=== PATIENT | female | born 1940 | race Caucasian/White ===

== ENCOUNTER 2018-07-30 17:05 | Inpatient (IN) ==
--- NOTE | 2018-07-30 22:40 | XR ---
EXAM DATE: 07/30/2018 10:36 PM EST AGE/SEX: 77 years / Female INDICATIONS: Chest pain. Short of breath. Confusion. CLINICAL DATA: This is the patient's initial encounter. Patient reports that signs and symptoms have been present for 1 day and indicates a pain score of Nonresponsive. MEDICAL/SURGICAL HISTORY: Non-responsive. Non-responsive. COMPARISON: No prior exams available for comparison. FINDINGS: The heart is moderately enlarged. The central bronchopulmonary markings are fairly well delineated. O blique linear density in the right upper lung may represent scarring. No focal areas of consolidation . No evidence of pneumothorax. Both hemidiaphragms well delineated. The right costophrenic angle is n ot included in the [id number]-lu-nquy. CONCLUSION: Probable right apical scarring or atelectasis. Moderate cardiomegaly. Electronically signed by: Jim Jewell MD 07/30/2018 10:38 PM EST
[2018-07-30 22:41] LABS: Baso # (Auto) 0.1 th/mm3 (0.0-0.2); Baso % (Auto) 0.6 % (0.0-2.0); Eos # (Auto) 0.1 th/mm3 (0.0-0.4); Eos % (Auto) 0.8 % (0.0-4.0); Hematocrit 48.9 % (35.0-46.0); Hemoglobin 16.3 gm/dL (11.6-15.3); Lymph # (Auto) 1.6 th/mm3 (1.0-4.8); Lymph % (Auto) 18.4 % (9.0-44.0); Mean Corpuscular HGB Conc 33.4 % (32.0-36.0); Mean Corpuscular Hemoglobin 32.7 pg (27.0-34.0); Mean Corpuscular Volume 97.9 fL (80.0-100.0); Mean Platelet Volume 8.9 fL (7.0-11.0); Mono # (Auto) 0.7 th/mm3 (0.0-0.9); Mono % (Auto) 8.2 % (0.0-8.0); Neut # (Auto) 6.1 th/mm3 (1.8-7.7); Platelet Count 110 th/mm3 (150-450); Red Blood Count 4.99 mil/mm3 (4.00-5.30); Red Cell Distribution Width 16.7 % (11.6-17.2); White Blood Count 8.4 th/mm3 (4.0-11.0)
--- NOTE | 2018-07-30 22:41 | ED ---
HPI General Chief complaint: Weakness Stated complaint: sob Time Seen by Provider: 07/30/18 21:49 History of Present Illness HPI narrative: Patient is a 77-year-old female presents emergency department with a next-door neighbor for evaluation of generalized weakness and probable syncopal episode that happened today. Neighbors noticed that she had not been as active as much had been on the street is much recently. She apparently came out to get the mail and had a collapse yesterday. She also endorses new shortness of breath and worsening leg swelling. Patient has a history of a cardiac arrest as well as STEMI and a stroke in the past. She states that she does not like going to doctors and treats herself naturally. She is quite pleasant and denies any chest pain abdominal pain nausea or vomiting denies any fevers cough or congestion. States she just feeling rundown. Related Data Home Medications Medication Instructions Recorded Confirmed aspirin 325 mg PO DAILY 07/31/18 07/31/18 cholecalciferol (vitamin D3) 2,000 unit PO DAILY 07/31/18 07/31/18 [Vitamin D3] coenzyme Q10 [CoQ-10] See Label Instructions .ROUTE 07/31/18 07/31/18 .COMPLEX Allergies Allergy/AdvReac Type Severity Reaction Status Date / Time Sulfa (Sulfonamide Allergy Severe unk Verified 07/31/18 04:35 Antibiotics) Review of Systems ROS: all other systems reviewed are negative [facility] Social History Social History Substance History: No History of Abuse Second Hand Smoke Exposure: No Smoking Status: Former smoker How Often Do You Have a Drink Containing Alcohol: Monthly or less Hx Recent Travel: No Recent Travel in [facility] within the Last 8 Weeks: No Recent Out of Country Travel within the Last 8 Weeks: No Immunization History Tetanus Immunization: Unsure Exam Narrative Exam Narrative: GENERAL: Developed overweight female pleasant in no obvious distress. SKIN: Focused skin assessment warm/dry. HEAD: Atraumatic. Normocephalic. EYES: Pupils equal and round. No scleral icterus. No injection or drainage. ENT: No nasal bleeding or discharge. Mucous membranes pink and moist. NECK: Trachea midline. No JVD. CARDIOVASCULAR: Regular rhythm with tachycardia. No murmur appreciated. RESPIRATORY: No wheezes rales or rhonchi heard. Patient does appear shortness of breath when she is sitting up in a stretcher and appears even more short of breath when she sits forward. No accessory muscle use. Clear to auscultation. Breath sounds equal bilaterally. GASTROINTESTINAL: Abdomen soft, non-tender, nondistended. Hepatic and splenic margins not palpable. MUSCULOSKELETAL: No obvious deformities. No clubbing. No cyanosis. Significant pitting edema bilateral lower extremities from the knees down. NEUROLOGICAL: Awake and alert. No obvious cranial nerve deficits. Motor grossly within normal limits. Normal speech. PSYCHIATRIC: Appropriate mood and affect; insight and judgment normal. Course Initial Documented Vital Signs Temperature 97.9 F 07/30/18 17:30 Pulse Rate 117 H 07/30/18 17:30 Respiratory Rate 22 07/30/18 17:30 Blood Pressure 132/85 07/30/18 17:30 Pulse Oximetry 93 L 07/30/18 17:30 Last Documented Vital Signs Temperature 97.6 F 08/05/18 12:00 Pulse Rate 75 08/05/18 12:00 Respiratory Rate 16 08/05/18 12:00 Blood Pressure 112/61 08/05/18 12:00 Pulse Oximetry 92 L 08/05/18 12:00 Sign Out Sign Out Data: Patient Sign Out occurred on 07/30/18 at 23:32. Patient's care was discussed, and care was transferred from Reggie Carmona MD to Ezekiel Vasquez MD. Sign Out Comment: Lasix 80mg ordered. Probable CHF and syncope. Probable admit. Awaiting CT PE protocol. Last updated by Reggie Carmona MD at 07/30/18 23:25 Post-Handoff Eval: Patient seen initially by Dr. Carmona, please see his notes for further details. Patient has CHF and has been given Lasix. Her CAT scan shows pulmonary embolism and a heparin protocol was initiated. Case is discussed with Dr. Oswald for admission. Medical Decision Making MDM Narrative Medical decision making narrative: Patient room to the emerge department, leading diagnostic concerns would be for congestive heart failure acute on chronic. Patient does have a history of cardiac arrest, denies any chest pain. She is also tachycardic has significant leg swelling and is fairly sedentary. I think a CT PE protocol should be performed as well. The patient's BNP is elevated, troponin negative, Lasix will be given. Medical Screen Exam Complete: Yes Emergency Medical Condition: Yes Lab Data Result diagrams: 08/05/18 05:12 08/05/18 05:12 Lab Results 07/30/18 07/30/18 07/30/18 Range/Units 22:30 22:30 22:30 WBC 8.4 (4.0-11.0) th/mm3 RBC 4.99 (4.00-5.30) mil/mm3 Hgb 16.3 H (11.6-15.3) gm/dL Hct 48.9 H (35.0-46.0) % MCV 97.9 (80.0-100.0) fL MCH 32.7 (27.0-34.0) pg MCHC 33.4 (32.0-36.0) % RDW 16.7 (11.6-17.2) % Plt Count 110 L (150-450) th/mm3 MPV 8.9 (7.0-11.0) fL Neut % (Auto) 72.0 H (16.0-70.0) % Lymph % (Auto) 18.4 (9.0-44.0) % Imperial % (Auto) 8.2 H (0.0-8.0) % Eos % (Auto) 0.8 (0.0-4.0) % Baso % (Auto) 0.6 (0.0-2.0) % Neut # (Auto) 6.1 (1.8-7.7) th/mm3 Lymph # (Auto) 1.6 (1.0-4.8) th/mm3 Imperial # (Auto) 0.7 (0.0-0.9) th/mm3 Eos # (Auto) 0.1 (0.0-0.4) th/mm3 Baso # (Auto) 0.1 (0.0-0.2) th/mm3 WBC Differential . Differential Comment Auto diff final PT 14.8 H (9.8-11.6) sec INR 1.5 Ratio APTT 28.9 (23.4-31.7) sec Sodium 137 (136-145) meq/L Potassium 5.0 (3.5-5.1) meq/L Chloride 101 (98-107) meq/L Carbon Dioxide 26.9 (21.0-32.0) meq/L Anion Gap 9 (5-15) meq/L BUN 30 H (7-18) mg/dL Creatinine 1.27 H (0.50-1.00) mg/dL Estimated GFR 41 L (>89) mL/min POC Glucose (68-110) mg/dl Random Glucose 121 H (74-106) mg/dL Hemoglobin A1c (4.3-6.0) % Calcium 8.6 (8.5-10.1) mg/dL Magnesium (1.5-2.5) mg/dL Total Bilirubin 1.1 H (0.2-1.0) mg/dL AST 51 H (15-37) U/L ALT 61 H (10-53) U/L Alkaline Phosphatase 158 H (45-117) U/L Total Creatine Kinase (26-192) U/L Troponin I 0.05 (0.02-0.05) ng/mL B-Natriuretic Peptide (0-100) pg/mL Total Protein 6.5 (6.4-8.2) g/dL Albumin 3.2 L (3.4-5.0) g/dL Triglycerides (42-150) mg/dL Cholesterol (120-200) mg/dL LDL Cholesterol, Calc (0-99) mg/dL HDL Cholesterol (40.0-60.0) mg/dL Cholesterol/HDL Ratio Ratio Vitamin B12 (193-986) pg/mL Folate (3.1-17.5) ng/mL Urine Color (Yellw/Straw) Urine Clarity (Clear) Urine pH (5.0-8.5) Ur Specific Hemphill (1.002-1.035) Urine Protein (Neg-Trace) mg/dL Urine Glucose (UA) (Negative) mg/dL Urine Ketones (Negative) mg/dL Urine Occult Blood (Negative) Urine Nitrate (Negative) Urine Bilirubin (Negative) Urine Urobilinogen (Less than 2) mg/dL Ur Leukocyte Esterase (Negative) Urine RBC (0-3) /hpf Urine WBC (0-5) /hpf Amorphous Sediment (None) /hpf Hyaline Casts (0-3) /lpf Granular Casts (None) /lpf Waxy Casts (None) /lpf Urine Mucus (Occasional) /lpf Micro UA Comment Ur Microscopic Review Urine Culture Comments 07/30/18 07/31/18 07/31/18 Range/Units 22:30 00:30 01:00 WBC (4.0-11.0) th/mm3 RBC (4.00-5.30) mil/mm3 Hgb (11.6-15.3) gm/dL Hct (35.0-46.0) % MCV (80.0-100.0) fL MCH (27.0-34.0) pg MCHC (32.0-36.0) % RDW (11.6-17.2) % Plt Count (150-450) th/mm3 MPV (7.0-11.0) fL Neut % (Auto) (16.0-70.0) % Lymph % (Auto) (9.0-44.0) % Imperial % (Auto) (0.0-8.0) % Eos % (Auto) (0.0-4.0) % Baso % (Auto) (0.0-2.0) % Neut # (Auto) (1.8-7.7) th/mm3 Lymph # (Auto) (1.0-4.8) th/mm3 Imperial # (Auto) (0.0-0.9) th/mm3 Eos # (Auto) (0.0-0.4) th/mm3 Baso # (Auto) (0.0-0.2) th/mm3 WBC Differential Differential Comment PT 15.6 H (9.8-11.6) sec INR 1.5 Ratio APTT 29.9 (23.4-31.7) sec Sodium (136-145) meq/L Potassium (3.5-5.1) meq/L Chloride (98-107) meq/L Carbon Dioxide (21.0-32.0) meq/L Anion Gap (5-15) meq/L BUN (7-18) mg/dL Creatinine (0.50-1.00) mg/dL Estimated GFR (>89) mL/min POC Glucose (68-110) mg/dl Random Glucose (74-106) mg/dL Hemoglobin A1c (4.3-6.0) % Calcium (8.5-10.1) mg/dL Magnesium (1.5-2.5) mg/dL Total Bilirubin (0.2-1.0) mg/dL AST (15-37) U/L ALT (10-53) U/L Alkaline Phosphatase (45-117) U/L Total Creatine Kinase (26-192) U/L Troponin I (0.02-0.05) ng/mL B-Natriuretic Peptide 2019 H (0-100) pg/mL Total Protein (6.4-8.2) g/dL Albumin (3.4-5.0) g/dL Triglycerides (42-150) mg/dL Cholesterol (120-200) mg/dL LDL Cholesterol, Calc (0-99) mg/dL HDL Cholesterol (40.0-60.0) mg/dL Cholesterol/HDL Ratio Ratio Vitamin B12 (193-986) pg/mL Folate (3.1-17.5) ng/mL Urine Color Yellow (Yellw/Straw) Urine Clarity Hazy H (Clear) Urine pH 5.0 (5.0-8.5) Ur Specific Hemphill 1.015 (1.002-1.035) Urine Protein 30 H (Neg-Trace) mg/dL Urine Glucose (UA) Negative (Negative) mg/dL Urine Ketones Negative (Negative) mg/dL Urine Occult Blood Negative (Negative) Urine Nitrate Negative (Negative) Urine Bilirubin Negative (Negative) Urine Urobilinogen Less than 2 (Less than 2) mg/dL Ur Leukocyte Esterase Negative (Negative) Urine RBC 2 (0-3) /hpf Urine WBC 1 (0-5) /hpf Amorphous Sediment Rare H (None) /hpf Hyaline Casts 64 (0-3) /lpf Granular Casts 4 (None) /lpf Waxy Casts 3 (None) /lpf Urine Mucus Few H (Occasional) /lpf Micro UA Comment Culture not ind Ur Microscopic Review Not Reportable Urine Culture Comments Culture not ind 07/31/18 07/31/18 07/31/18 Range/Units 06:33 13:31 13:31 WBC (4.0-11.0) th/mm3 RBC (4.00-5.30) mil/mm3 Hgb (11.6-15.3) gm/dL Hct (35.0-46.0) % MCV (80.0-100.0) fL MCH (27.0-34.0) pg MCHC (32.0-36.0) % RDW (11.6-17.2) % Plt Count (150-450) th/mm3 MPV (7.0-11.0) fL Neut % (Auto) (16.0-70.0) % Lymph % (Auto) (9.0-44.0) % Imperial % (Auto) (0.0-8.0) % Eos % (Auto) (0.0-4.0) % Baso % (Auto) (0.0-2.0) % Neut # (Auto) (1.8-7.7) th/mm3 Lymph # (Auto) (1.0-4.8) th/mm3 Imperial # (Auto) (0.0-0.9) th/mm3 Eos # (Auto) (0.0-0.4) th/mm3 Baso # (Auto) (0.0-0.2) th/mm3 WBC Differential Differential Comment PT (9.8-11.6) sec INR Ratio APTT 277.5 H* (23.4-31.7) sec Sodium (136-145) meq/L Potassium (3.5-5.1) meq/L Chloride (98-107) meq/L Carbon Dioxide (21.0-32.0) meq/L Anion Gap (5-15) meq/L BUN (7-18) mg/dL Creatinine (0.50-1.00) mg/dL Estimated GFR (>89) mL/min POC Glucose (68-110) mg/dl Random Glucose (74-106) mg/dL Hemoglobin A1c (4.3-6.0) % Calcium (8.5-10.1) mg/dL Magnesium (1.5-2.5) mg/dL Total Bilirubin (0.2-1.0) mg/dL AST (15-37) U/L ALT (10-53) U/L Alkaline Phosphatase (45-117) U/L Total Creatine Kinase 63 66 (26-192) U/L Troponin I 0.04 0.04 (0.02-0.05) ng/mL B-Natriuretic Peptide (0-100) pg/mL Total Protein (6.4-8.2) g/dL Albumin (3.4-5.0) g/dL Triglycerides (42-150) mg/dL Cholesterol (120-200) mg/dL LDL Cholesterol, Calc (0-99) mg/dL HDL Cholesterol (40.0-60.0) mg/dL Cholesterol/HDL Ratio Ratio Vitamin B12 (193-986) pg/mL Folate (3.1-17.5) ng/mL Urine Color (Yellw/Straw) Urine Clarity (Clear) Urine pH (5.0-8.5) Ur Specific Hemphill (1.002-1.035) Urine Protein (Neg-Trace) mg/dL Urine Glucose (UA) (Negative) mg/dL Urine Ketones (Negative) mg/dL Urine Occult Blood (Negative) Urine Nitrate (Negative) Urine Bilirubin (Negative) Urine Urobilinogen (Less than 2) mg/dL Ur Leukocyte Esterase (Negative) Urine RBC (0-3) /hpf Urine WBC (0-5) /hpf Amorphous Sediment (None) /hpf Hyaline Casts (0-3) /lpf Granular Casts (None) /lpf Waxy Casts (None) /lpf Urine Mucus (Occasional) /lpf Micro UA Comment Ur Microscopic Review Urine Culture Comments 07/31/18 07/31/18 07/31/18 Range/Units 15:00 17:15 23:50 WBC (4.0-11.0) th/mm3 RBC (4.00-5.30) mil/mm3 Hgb (11.6-15.3) gm/dL Hct (35.0-46.0) % MCV (80.0-100.0) fL MCH (27.0-34.0) pg MCHC (32.0-36.0) % RDW (11.6-17.2) % Plt Count (150-450) th/mm3 MPV (7.0-11.0) fL Neut % (Auto) (16.0-70.0) % Lymph % (Auto) (9.0-44.0) % Imperial % (Auto) (0.0-8.0) % Eos % (Auto) (0.0-4.0) % Baso % (Auto) (0.0-2.0) % Neut # (Auto) (1.8-7.7) th/mm3 Lymph # (Auto) (1.0-4.8) th/mm3 Imperial # (Auto) (0.0-0.9) th/mm3 Eos # (Auto) (0.0-0.4) th/mm3 Baso # (Auto) (0.0-0.2) th/mm3 WBC Differential Differential Comment PT 13.6 H (9.8-11.6) sec INR 1.3 Ratio APTT 173.9 H* D 70.6 H D (23.4-31.7) sec Sodium (136-145) meq/L Potassium (3.5-5.1) meq/L Chloride (98-107) meq/L Carbon Dioxide (21.0-32.0) meq/L Anion Gap (5-15) meq/L BUN (7-18) mg/dL Creatinine (0.50-1.00) mg/dL Estimated GFR (>89) mL/min POC Glucose (68-110) mg/dl Random Glucose (74-106) mg/dL Hemoglobin A1c (4.3-6.0) % Calcium (8.5-10.1) mg/dL Magnesium (1.5-2.5) mg/dL Total Bilirubin (0.2-1.0) mg/dL AST (15-37) U/L ALT (10-53) U/L Alkaline Phosphatase (45-117) U/L Total Creatine Kinase (26-192) U/L Troponin I (0.02-0.05) ng/mL B-Natriuretic Peptide (0-100) pg/mL Total Protein (6.4-8.2) g/dL Albumin (3.4-5.0) g/dL Triglycerides (42-150) mg/dL Cholesterol (120-200) mg/dL LDL Cholesterol, Calc (0-99) mg/dL HDL Cholesterol (40.0-60.0) mg/dL Cholesterol/HDL Ratio Ratio Vitamin B12 (193-986) pg/mL Folate (3.1-17.5) ng/mL Urine Color (Yellw/Straw) Urine Clarity (Clear) Urine pH (5.0-8.5) Ur Specific Hemphill (1.002-1.035) Urine Protein (Neg-Trace) mg/dL Urine Glucose (UA) (Negative) mg/dL Urine Ketones (Negative) mg/dL Urine Occult Blood (Negative) Urine Nitrate (Negative) Urine Bilirubin (Negative) Urine Urobilinogen (Less than 2) mg/dL Ur Leukocyte Esterase (Negative) Urine RBC (0-3) /hpf Urine WBC (0-5) /hpf Amorphous Sediment (None) /hpf Hyaline Casts (0-3) /lpf Granular Casts (None) /lpf Waxy Casts (None) /lpf Urine Mucus (Occasional) /lpf Micro UA Comment Ur Microscopic Review Urine Culture Comments 07/31/18 08/01/18 08/01/18 Range/Units 23:50 07:50 07:50 WBC 7.4 (4.0-11.0) th/mm3 RBC 4.41 (4.00-5.30) mil/mm3 Hgb 14.7 (11.6-15.3) gm/dL Hct 44.0 (35.0-46.0) % MCV 99.8 (80.0-100.0) fL MCH 33.3 (27.0-34.0) pg MCHC 33.4 (32.0-36.0) % RDW 17.0 (11.6-17.2) % Plt Count 119 L (150-450) th/mm3 MPV 9.1 (7.0-11.0) fL Neut % (Auto) 64.3 (16.0-70.0) % Lymph % (Auto) 22.3 (9.0-44.0) % Imperial % (Auto) 9.8 H (0.0-8.0) % Eos % (Auto) 2.9 (0.0-4.0) % Baso % (Auto) 0.7 (0.0-2.0) % Neut # (Auto) 4.8 (1.8-7.7) th/mm3 Lymph # (Auto) 1.7 (1.0-4.8) th/mm3 Imperial # (Auto) 0.7 (0.0-0.9) th/mm3 Eos # (Auto) 0.2 (0.0-0.4) th/mm3 Baso # (Auto) 0.1 (0.0-0.2) th/mm3 WBC Differential . Differential Comment Auto diff final PT (9.8-11.6) sec INR Ratio APTT 57.5 H (23.4-31.7) sec Sodium 139 (136-145) meq/L Potassium 4.1 D (3.5-5.1) meq/L Chloride 99 (98-107) meq/L Carbon Dioxide 31.0 (21.0-32.0) meq/L Anion Gap 9 (5-15) meq/L BUN 27 H (7-18) mg/dL Creatinine 1.24 H (0.50-1.00) mg/dL Estimated GFR 42 L (>89) mL/min POC Glucose (68-110) mg/dl Random Glucose 111 H (74-106) mg/dL Hemoglobin A1c (4.3-6.0) % Calcium 8.0 L (8.5-10.1) mg/dL Magnesium (1.5-2.5) mg/dL Total Bilirubin 0.6 (0.2-1.0) mg/dL AST 30 (15-37) U/L ALT 47 (10-53) U/L Alkaline Phosphatase 123 H (45-117) U/L Total Creatine Kinase (26-192) U/L Troponin I (0.02-0.05) ng/mL B-Natriuretic Peptide (0-100) pg/mL Total Protein 5.6 L D (6.4-8.2) g/dL Albumin 2.6 L D (3.4-5.0) g/dL Triglycerides (42-150) mg/dL Cholesterol (120-200) mg/dL LDL Cholesterol, Calc (0-99) mg/dL HDL Cholesterol (40.0-60.0) mg/dL Cholesterol/HDL Ratio Ratio Vitamin B12 (193-986) pg/mL Folate (3.1-17.5) ng/mL Urine Color (Yellw/Straw) Urine Clarity (Clear) Urine pH (5.0-8.5) Ur Specific Hemphill (1.002-1.035) Urine Protein (Neg-Trace) mg/dL Urine Glucose (UA) (Negative) mg/dL Urine Ketones (Negative) mg/dL Urine Occult Blood (Negative) Urine Nitrate (Negative) Urine Bilirubin (Negative) Urine Urobilinogen (Less than 2) mg/dL Ur Leukocyte Esterase (Negative) Urine RBC (0-3) /hpf Urine WBC (0-5) /hpf Amorphous Sediment (None) /hpf Hyaline Casts (0-3) /lpf Granular Casts (None) /lpf Waxy Casts (None) /lpf Urine Mucus (Occasional) /lpf Micro UA Comment Ur Microscopic Review Urine Culture Comments 08/01/18 08/01/18 08/01/18 Range/Units 07:50 07:50 07:50 WBC (4.0-11.0) th/mm3 RBC (4.00-5.30) mil/mm3 Hgb (11.6-15.3) gm/dL Hct (35.0-46.0) % MCV (80.0-100.0) fL MCH (27.0-34.0) pg MCHC (32.0-36.0) % RDW (11.6-17.2) % Plt Count (150-450) th/mm3 MPV (7.0-11.0) fL Neut % (Auto) (16.0-70.0) % Lymph % (Auto) (9.0-44.0) % Imperial % (Auto) (0.0-8.0) % Eos % (Auto) (0.0-4.0) % Baso % (Auto) (0.0-2.0) % Neut # (Auto) (1.8-7.7) th/mm3 Lymph # (Auto) (1.0-4.8) th/mm3 Imperial # (Auto) (0.0-0.9) th/mm3 Eos # (Auto) (0.0-0.4) th/mm3 Baso # (Auto) (0.0-0.2) th/mm3 WBC Differential Differential Comment PT (9.8-11.6) sec INR Ratio APTT 120.2 H* D (23.4-31.7) sec Sodium (136-145) meq/L Potassium (3.5-5.1) meq/L Chloride (98-107) meq/L Carbon Dioxide (21.0-32.0) meq/L Anion Gap (5-15) meq/L BUN (7-18) mg/dL Creatinine (0.50-1.00) mg/dL Estimated GFR (>89) mL/min POC Glucose (68-110) mg/dl Random Glucose (74-106) mg/dL Hemoglobin A1c 6.8 H (4.3-6.0) % Calcium (8.5-10.1) mg/dL Magnesium (1.5-2.5) mg/dL Total Bilirubin (0.2-1.0) mg/dL AST (15-37) U/L ALT (10-53) U/L Alkaline Phosphatase (45-117) U/L Total Creatine Kinase (26-192) U/L Troponin I (0.02-0.05) ng/mL B-Natriuretic Peptide (0-100) pg/mL Total Protein (6.4-8.2) g/dL Albumin (3.4-5.0) g/dL Triglycerides (42-150) mg/dL Cholesterol (120-200) mg/dL LDL Cholesterol, Calc (0-99) mg/dL HDL Cholesterol (40.0-60.0) mg/dL Cholesterol/HDL Ratio Ratio Vitamin B12 1303 H (193-986) pg/mL Folate Greater than 20.0 H (3.1-17.5) ng/mL Urine Color (Yellw/Straw) Urine Clarity (Clear) Urine pH (5.0-8.5) Ur Specific Hemphill (1.002-1.035) Urine Protein (Neg-Trace) mg/dL Urine Glucose (UA) (Negative) mg/dL Urine Ketones (Negative) mg/dL Urine Occult Blood (Negative) Urine Nitrate (Negative) Urine Bilirubin (Negative) Urine Urobilinogen (Less than 2) mg/dL Ur Leukocyte Esterase (Negative) Urine RBC (0-3) /hpf Urine WBC (0-5) /hpf Amorphous Sediment (None) /hpf Hyaline Casts (0-3) /lpf Granular Casts (None) /lpf Waxy Casts (None) /lpf Urine Mucus (Occasional) /lpf Micro UA Comment Ur Microscopic Review Urine Culture Comments 08/01/18 08/01/18 08/01/18 Range/Units 10:55 16:48 17:54 WBC (4.0-11.0) th/mm3 RBC (4.00-5.30) mil/mm3 Hgb (11.6-15.3) gm/dL Hct (35.0-46.0) % MCV (80.0-100.0) fL MCH (27.0-34.0) pg MCHC (32.0-36.0) % RDW (11.6-17.2) % Plt Count (150-450) th/mm3 MPV (7.0-11.0) fL Neut % (Auto) (16.0-70.0) % Lymph % (Auto) (9.0-44.0) % Imperial % (Auto) (0.0-8.0) % Eos % (Auto) (0.0-4.0) % Baso % (Auto) (0.0-2.0) % Neut # (Auto) (1.8-7.7) th/mm3 Lymph # (Auto) (1.0-4.8) th/mm3 Imperial # (Auto) (0.0-0.9) th/mm3 Eos # (Auto) (0.0-0.4) th/mm3 Baso # (Auto) (0.0-0.2) th/mm3 WBC Differential Differential Comment PT (9.8-11.6) sec INR Ratio APTT 83.2 H D 52.5 H D (23.4-31.7) sec Sodium (136-145) meq/L Potassium (3.5-5.1) meq/L Chloride (98-107) meq/L Carbon Dioxide (21.0-32.0) meq/L Anion Gap (5-15) meq/L BUN (7-18) mg/dL Creatinine (0.50-1.00) mg/dL Estimated GFR (>89) mL/min POC Glucose 115 H (68-110) mg/dl Random Glucose (74-106) mg/dL Hemoglobin A1c (4.3-6.0) % Calcium (8.5-10.1) mg/dL Magnesium (1.5-2.5) mg/dL Total Bilirubin (0.2-1.0) mg/dL AST (15-37) U/L ALT (10-53) U/L Alkaline Phosphatase (45-117) U/L Total Creatine Kinase (26-192) U/L Troponin I (0.02-0.05) ng/mL B-Natriuretic Peptide (0-100) pg/mL Total Protein (6.4-8.2) g/dL Albumin (3.4-5.0) g/dL Triglycerides (42-150) mg/dL Cholesterol (120-200) mg/dL LDL Cholesterol, Calc (0-99) mg/dL HDL Cholesterol (40.0-60.0) mg/dL Cholesterol/HDL Ratio Ratio Vitamin B12 (193-986) pg/mL Folate (3.1-17.5) ng/mL Urine Color (Yellw/Straw) Urine Clarity (Clear) Urine pH (5.0-8.5) Ur Specific Hemphill (1.002-1.035) Urine Protein (Neg-Trace) mg/dL Urine Glucose (UA) (Negative) mg/dL Urine Ketones (Negative) mg/dL Urine Occult Blood (Negative) Urine Nitrate (Negative) Urine Bilirubin (Negative) Urine Urobilinogen (Less than 2) mg/dL Ur Leukocyte Esterase (Negative) Urine RBC (0-3) /hpf Urine WBC (0-5) /hpf Amorphous Sediment (None) /hpf Hyaline Casts (0-3) /lpf Granular Casts (None) /lpf Waxy Casts (None) /lpf Urine Mucus (Occasional) /lpf Micro UA Comment Ur Microscopic Review Urine Culture Comments 08/01/18 08/01/18 08/02/18 Range/Units 21:47 22:46 06:18 WBC 6.9 (4.0-11.0) th/mm3 RBC 4.24 (4.00-5.30) mil/mm3 Hgb 14.0 (11.6-15.3) gm/dL Hct 42.0 (35.0-46.0) % MCV 99.1 (80.0-100.0) fL MCH 33.0 (27.0-34.0) pg MCHC 33.3 (32.0-36.0) % RDW 16.7 (11.6-17.2) % Plt Count 127 L (150-450) th/mm3 MPV 8.9 (7.0-11.0) fL Neut % (Auto) 75.2 H (16.0-70.0) % Lymph % (Auto) 15.1 (9.0-44.0) % Imperial % (Auto) 7.0 (0.0-8.0) % Eos % (Auto) 2.0 (0.0-4.0) % Baso % (Auto) 0.7 (0.0-2.0) % Neut # (Auto) 5.2 (1.8-7.7) th/mm3 Lymph # (Auto) 1.0 (1.0-4.8) th/mm3 Imperial # (Auto) 0.5 (0.0-0.9) th/mm3 Eos # (Auto) 0.1 (0.0-0.4) th/mm3 Baso # (Auto) 0.1 (0.0-0.2) th/mm3 WBC Differential . Differential Comment Auto diff final PT (9.8-11.6) sec INR Ratio APTT 32.4 H D (23.4-31.7) sec Sodium (136-145) meq/L Potassium (3.5-5.1) meq/L Chloride (98-107) meq/L Carbon Dioxide (21.0-32.0) meq/L Anion Gap (5-15) meq/L BUN (7-18) mg/dL Creatinine (0.50-1.00) mg/dL Estimated GFR (>89) mL/min POC Glucose 123 H (68-110) mg/dl Random Glucose (74-106) mg/dL Hemoglobin A1c (4.3-6.0) % Calcium (8.5-10.1) mg/dL Magnesium (1.5-2.5) mg/dL Total Bilirubin (0.2-1.0) mg/dL AST (15-37) U/L ALT (10-53) U/L Alkaline Phosphatase (45-117) U/L Total Creatine Kinase (26-192) U/L Troponin I (0.02-0.05) ng/mL B-Natriuretic Peptide (0-100) pg/mL Total Protein (6.4-8.2) g/dL Albumin (3.4-5.0) g/dL Triglycerides (42-150) mg/dL Cholesterol (120-200) mg/dL LDL Cholesterol, Calc (0-99) mg/dL HDL Cholesterol (40.0-60.0) mg/dL Cholesterol/HDL Ratio Ratio Vitamin B12 (193-986) pg/mL Folate (3.1-17.5) ng/mL Urine Color (Yellw/Straw) Urine Clarity (Clear) Urine pH (5.0-8.5) Ur Specific Hemphill (1.002-1.035) Urine Protein (Neg-Trace) mg/dL Urine Glucose (UA) (Negative) mg/dL Urine Ketones (Negative) mg/dL Urine Occult Blood (Negative) Urine Nitrate (Negative) Urine Bilirubin (Negative) Urine Urobilinogen (Less than 2) mg/dL Ur Leukocyte Esterase (Negative) Urine RBC (0-3) /hpf Urine WBC (0-5) /hpf Amorphous Sediment (None) /hpf Hyaline Casts (0-3) /lpf Granular Casts (None) /lpf Waxy Casts (None) /lpf Urine Mucus (Occasional) /lpf Micro UA Comment Ur Microscopic Review Urine Culture Comments 08/02/18 08/02/18 08/02/18 Range/Units 06:18 06:18 07:37 WBC (4.0-11.0) th/mm3 RBC (4.00-5.30) mil/mm3 Hgb (11.6-15.3) gm/dL Hct (35.0-46.0) % MCV (80.0-100.0) fL MCH (27.0-34.0) pg MCHC (32.0-36.0) % RDW (11.6-17.2) % Plt Count (150-450) th/mm3 MPV (7.0-11.0) fL Neut % (Auto) (16.0-70.0) % Lymph % (Auto) (9.0-44.0) % Imperial % (Auto) (0.0-8.0) % Eos % (Auto) (0.0-4.0) % Baso % (Auto) (0.0-2.0) % Neut # (Auto) (1.8-7.7) th/mm3 Lymph # (Auto) (1.0-4.8) th/mm3 Imperial # (Auto) (0.0-0.9) th/mm3 Eos # (Auto) (0.0-0.4) th/mm3 Baso # (Auto) (0.0-0.2) th/mm3 WBC Differential Differential Comment PT (9.8-11.6) sec INR Ratio APTT 44.0 H D (23.4-31.7) sec Sodium 139 (136-145) meq/L Potassium 3.4 L (3.5-5.1) meq/L Chloride 98 (98-107) meq/L Carbon Dioxide 34.0 H (21.0-32.0) meq/L Anion Gap 7 (5-15) meq/L BUN 25 H (7-18) mg/dL Creatinine 0.97 (0.50-1.00) mg/dL Estimated GFR 56 L (>89) mL/min POC Glucose 106 (68-110) mg/dl Random Glucose 111 H (74-106) mg/dL Hemoglobin A1c (4.3-6.0) % Calcium 8.0 L (8.5-10.1) mg/dL Magnesium 1.3 L (1.5-2.5) mg/dL Total Bilirubin 0.6 (0.2-1.0) mg/dL AST 22 (15-37) U/L ALT 35 (10-53) U/L Alkaline Phosphatase 103 (45-117) U/L Total Creatine Kinase (26-192) U/L Troponin I (0.02-0.05) ng/mL B-Natriuretic Peptide (0-100) pg/mL Total Protein 5.3 L (6.4-8.2) g/dL Albumin 2.3 L (3.4-5.0) g/dL Triglycerides 68 (42-150) mg/dL Cholesterol 138 (120-200) mg/dL LDL Cholesterol, Calc 85 (0-99) mg/dL HDL Cholesterol 39.4 L (40.0-60.0) mg/dL Cholesterol/HDL Ratio 3.50 Ratio Vitamin B12 (193-986) pg/mL Folate (3.1-17.5) ng/mL Urine Color (Yellw/Straw) Urine Clarity (Clear) Urine pH (5.0-8.5) Ur Specific [place] (1.002-1.035) Urine Protein (Neg-Trace) mg/dL Urine Glucose (UA) (Negative) mg/dL Urine Ketones (Negative) mg/dL Urine Occult Blood (Negative) Urine Nitrate (Negative) Urine Bilirubin (Negative) Urine Urobilinogen (Less than 2) mg/dL Ur Leukocyte Esterase (Negative) Urine RBC (0-3) /hpf Urine WBC (0-5) /hpf Amorphous Sediment (None) /hpf Hyaline Casts (0-3) /lpf Granular Casts (None) /lpf Waxy Casts (None) /lpf Urine Mucus (Occasional) /lpf Micro UA Comment Ur Microscopic Review Urine Culture Comments 11/18/18 11/18/18 11/18/18 Range/Units 11:54 12:02 13:24 WBC (4.0-11.0) th/mm3 RBC (4.00-5.30) mil/mm3 Hgb (11.6-15.3) gm/dL Hct (35.0-46.0) % MCV (80.0-100.0) fL MCH (27.0-34.0) pg MCHC (32.0-36.0) % RDW (11.6-17.2) % Plt Count (150-450) th/mm3 MPV (7.0-11.0) fL Neut % (Auto) (16.0-70.0) % Lymph % (Auto) (9.0-44.0) % Imperial % (Auto) (0.0-8.0) % Eos % (Auto) (0.0-4.0) % Baso % (Auto) (0.0-2.0) % Neut # (Auto) (1.8-7.7) th/mm3 Lymph # (Auto) (1.0-4.8) th/mm3 Imperial # (Auto) (0.0-0.9) th/mm3 Eos # (Auto) (0.0-0.4) th/mm3 Baso # (Auto) (0.0-0.2) th/mm3 WBC Differential Differential Comment PT (9.8-11.6) sec INR Ratio APTT Greater than 277.5 H* 41.8 H D (23.4-31.7) sec Sodium (136-145) meq/L Potassium (3.5-5.1) meq/L Chloride (98-107) meq/L Carbon Dioxide (21.0-32.0) meq/L Anion Gap (5-15) meq/L BUN (7-18) mg/dL Creatinine (0.50-1.00) mg/dL Estimated GFR (>89) mL/min POC Glucose 105 (68-110) mg/dl Random Glucose (74-106) mg/dL Hemoglobin A1c (4.3-6.0) % Calcium (8.5-10.1) mg/dL Magnesium (1.5-2.5) mg/dL Total Bilirubin (0.2-1.0) mg/dL AST (15-37) U/L ALT (10-53) U/L Alkaline Phosphatase (45-117) U/L Total Creatine Kinase (26-192) U/L Troponin I (0.02-0.05) ng/mL B-Natriuretic Peptide (0-100) pg/mL Total Protein (6.4-8.2) g/dL Albumin (3.4-5.0) g/dL Triglycerides (42-150) mg/dL Cholesterol (120-200) mg/dL LDL Cholesterol, Calc (0-99) mg/dL HDL Cholesterol (40.0-60.0) mg/dL Cholesterol/HDL Ratio Ratio Vitamin B12 (193-986) pg/mL Folate (3.1-17.5) ng/mL Urine Color (Yellw/Straw) Urine Clarity (Clear) Urine pH (5.0-8.5) Ur Specific Hemphill (1.002-1.035) Urine Protein (Neg-Trace) mg/dL Urine Glucose (UA) (Negative) mg/dL Urine Ketones (Negative) mg/dL Urine Occult Blood (Negative) Urine Nitrate (Negative) Urine Bilirubin (Negative) Urine Urobilinogen (Less than 2) mg/dL Ur Leukocyte Esterase (Negative) Urine RBC (0-3) /hpf Urine WBC (0-5) /hpf Amorphous Sediment (None) /hpf Hyaline Casts (0-3) /lpf Granular Casts (None) /lpf Waxy Casts (None) /lpf Urine Mucus (Occasional) /lpf Micro UA Comment Ur Microscopic Review Urine Culture Comments 08/02/18 08/02/18 08/03/18 Range/Units 19:07 21:28 05:07 WBC 7.3 (4.0-11.0) th/mm3 RBC 4.64 (4.00-5.30) mil/mm3 Hgb 15.1 (11.6-15.3) gm/dL Hct 46.4 H (35.0-46.0) % MCV 99.9 (80.0-100.0) fL MCH 32.6 (27.0-34.0) pg MCHC 32.6 (32.0-36.0) % RDW 16.7 (11.6-17.2) % Plt Count 147 L (150-450) th/mm3 MPV 9.3 (7.0-11.0) fL Neut % (Auto) 71.3 H (16.0-70.0) % Lymph % (Auto) 16.7 (9.0-44.0) % Imperial % (Auto) 8.7 H (0.0-8.0) % Eos % (Auto) 2.7 (0.0-4.0) % Baso % (Auto) 0.6 (0.0-2.0) % Neut # (Auto) 5.2 (1.8-7.7) th/mm3 Lymph # (Auto) 1.2 (1.0-4.8) th/mm3 Imperial # (Auto) 0.6 (0.0-0.9) th/mm3 Eos # (Auto) 0.2 (0.0-0.4) th/mm3 Baso # (Auto) 0.0 (0.0-0.2) th/mm3 WBC Differential . Differential Comment Auto diff final PT (9.8-11.6) sec INR Ratio APTT 43.2 H (23.4-31.7) sec Sodium (136-145) meq/L Potassium (3.5-5.1) meq/L Chloride (98-107) meq/L Carbon Dioxide (21.0-32.0) meq/L Anion Gap (5-15) meq/L BUN (7-18) mg/dL Creatinine (0.50-1.00) mg/dL Estimated GFR (>89) mL/min POC Glucose 138 H (68-110) mg/dl Random Glucose (74-106) mg/dL Hemoglobin A1c (4.3-6.0) % Calcium (8.5-10.1) mg/dL Magnesium (1.5-2.5) mg/dL Total Bilirubin (0.2-1.0) mg/dL AST (15-37) U/L ALT (10-53) U/L Alkaline Phosphatase (45-117) U/L Total Creatine Kinase (26-192) U/L Troponin I (0.02-0.05) ng/mL B-Natriuretic Peptide (0-100) pg/mL Total Protein (6.4-8.2) g/dL Albumin (3.4-5.0) g/dL Triglycerides (42-150) mg/dL Cholesterol (120-200) mg/dL LDL Cholesterol, Calc (0-99) mg/dL HDL Cholesterol (40.0-60.0) mg/dL Cholesterol/HDL Ratio Ratio Vitamin B12 (193-986) pg/mL Folate (3.1-17.5) ng/mL Urine Color (Yellw/Straw) Urine Clarity (Clear) Urine pH (5.0-8.5) Ur Specific Hemphill (1.002-1.035) Urine Protein (Neg-Trace) mg/dL Urine Glucose (UA) (Negative) mg/dL Urine Ketones (Negative) mg/dL Urine Occult Blood (Negative) Urine Nitrate (Negative) Urine Bilirubin (Negative) Urine Urobilinogen (Less than 2) mg/dL Ur Leukocyte Esterase (Negative) Urine RBC (0-3) /hpf Urine WBC (0-5) /hpf Amorphous Sediment (None) /hpf Hyaline Casts (0-3) /lpf Granular Casts (None) /lpf Waxy Casts (None) /lpf Urine Mucus (Occasional) /lpf Micro UA Comment Ur Microscopic Review Urine Culture Comments 08/03/18 08/03/18 08/04/18 Range/Units 05:07 05:07 05:35 WBC (4.0-11.0) th/mm3 RBC (4.00-5.30) mil/mm3 Hgb (11.6-15.3) gm/dL Hct (35.0-46.0) % MCV (80.0-100.0) fL MCH (27.0-34.0) pg MCHC (32.0-36.0) % RDW (11.6-17.2) % Plt Count (150-450) th/mm3 MPV (7.0-11.0) fL Neut % (Auto) (16.0-70.0) % Lymph % (Auto) (9.0-44.0) % Imperial % (Auto) (0.0-8.0) % Eos % (Auto) (0.0-4.0) % Baso % (Auto) (0.0-2.0) % Neut # (Auto) (1.8-7.7) th/mm3 Lymph # (Auto) (1.0-4.8) th/mm3 Imperial # (Auto) (0.0-0.9) th/mm3 Eos # (Auto) (0.0-0.4) th/mm3 Baso # (Auto) (0.0-0.2) th/mm3 WBC Differential Differential Comment PT (9.8-11.6) sec INR Ratio APTT 44.1 H 36.5 H (23.4-31.7) sec Sodium 139 (136-145) meq/L Potassium 3.8 (3.5-5.1) meq/L Chloride 96 L (98-107) meq/L Carbon Dioxide 35.1 H (21.0-32.0) meq/L Anion Gap 8 (5-15) meq/L BUN 28 H (7-18) mg/dL Creatinine 1.00 (0.50-1.00) mg/dL Estimated GFR 54 L (>89) mL/min POC Glucose (68-110) mg/dl Random Glucose 114 H (74-106) mg/dL Hemoglobin A1c (4.3-6.0) % Calcium 8.2 L (8.5-10.1) mg/dL Magnesium 1.9 D (1.5-2.5) mg/dL Total Bilirubin (0.2-1.0) mg/dL AST (15-37) U/L ALT (10-53) U/L Alkaline Phosphatase (45-117) U/L Total Creatine Kinase (26-192) U/L Troponin I (0.02-0.05) ng/mL B-Natriuretic Peptide (0-100) pg/mL Total Protein (6.4-8.2) g/dL Albumin (3.4-5.0) g/dL Triglycerides (42-150) mg/dL Cholesterol (120-200) mg/dL LDL Cholesterol, Calc (0-99) mg/dL HDL Cholesterol (40.0-60.0) mg/dL Cholesterol/HDL Ratio Ratio Vitamin B12 (193-986) pg/mL Folate (3.1-17.5) ng/mL Urine Color (Yellw/Straw) Urine Clarity (Clear) Urine pH (5.0-8.5) Ur Specific Hemphill (1.002-1.035) Urine Protein (Neg-Trace) mg/dL Urine Glucose (UA) (Negative) mg/dL Urine Ketones (Negative) mg/dL Urine Occult Blood (Negative) Urine Nitrate (Negative) Urine Bilirubin (Negative) Urine Urobilinogen (Less than 2) mg/dL Ur Leukocyte Esterase (Negative) Urine RBC (0-3) /hpf Urine WBC (0-5) /hpf Amorphous Sediment (None) /hpf Hyaline Casts (0-3) /lpf Granular Casts (None) /lpf Waxy Casts (None) /lpf Urine Mucus (Occasional) /lpf Micro UA Comment Ur Microscopic Review Urine Culture Comments 08/04/18 08/04/18 08/04/18 Range/Units 12:09 14:52 17:28 WBC (4.0-11.0) th/mm3 RBC (4.00-5.30) mil/mm3 Hgb (11.6-15.3) gm/dL Hct (35.0-46.0) % MCV (80.0-100.0) fL MCH (27.0-34.0) pg MCHC (32.0-36.0) % RDW (11.6-17.2) % Plt Count (150-450) th/mm3 MPV (7.0-11.0) fL Neut % (Auto) (16.0-70.0) % Lymph % (Auto) (9.0-44.0) % Imperial % (Auto) (0.0-8.0) % Eos % (Auto) (0.0-4.0) % Baso % (Auto) (0.0-2.0) % Neut # (Auto) (1.8-7.7) th/mm3 Lymph # (Auto) (1.0-4.8) th/mm3 Imperial # (Auto) (0.0-0.9) th/mm3 Eos # (Auto) (0.0-0.4) th/mm3 Baso # (Auto) (0.0-0.2) th/mm3 WBC Differential Differential Comment PT (9.8-11.6) sec INR Ratio APTT 24.2 D (23.4-31.7) sec Sodium (136-145) meq/L Potassium (3.5-5.1) meq/L Chloride (98-107) meq/L Carbon Dioxide (21.0-32.0) meq/L Anion Gap (5-15) meq/L BUN (7-18) mg/dL Creatinine (0.50-1.00) mg/dL Estimated GFR (>89) mL/min POC Glucose 138 H 117 H (68-110) mg/dl Random Glucose (74-106) mg/dL Hemoglobin A1c (4.3-6.0) % Calcium (8.5-10.1) mg/dL Magnesium (1.5-2.5) mg/dL Total Bilirubin (0.2-1.0) mg/dL AST (15-37) U/L ALT (10-53) U/L Alkaline Phosphatase (45-117) U/L Total Creatine Kinase (26-192) U/L Troponin I (0.02-0.05) ng/mL B-Natriuretic Peptide (0-100) pg/mL Total Protein (6.4-8.2) g/dL Albumin (3.4-5.0) g/dL Triglycerides (42-150) mg/dL Cholesterol (120-200) mg/dL LDL Cholesterol, Calc (0-99) mg/dL HDL Cholesterol (40.0-60.0) mg/dL Cholesterol/HDL Ratio Ratio Vitamin B12 (193-986) pg/mL Folate (3.1-17.5) ng/mL Urine Color (Yellw/Straw) Urine Clarity (Clear) Urine pH (5.0-8.5) Ur Specific Hemphill (1.002-1.035) Urine Protein (Neg-Trace) mg/dL Urine Glucose (UA) (Negative) mg/dL Urine Ketones (Negative) mg/dL Urine Occult Blood (Negative) Urine Nitrate (Negative) Urine Bilirubin (Negative) Urine Urobilinogen (Less than 2) mg/dL Ur Leukocyte Esterase (Negative) Urine RBC (0-3) /hpf Urine WBC (0-5) /hpf Amorphous Sediment (None) /hpf Hyaline Casts (0-3) /lpf Granular Casts (None) /lpf Waxy Casts (None) /lpf Urine Mucus (Occasional) /lpf Micro UA Comment Ur Microscopic Review Urine Culture Comments 08/04/18 08/05/18 08/05/18 Range/Units 19:26 05:12 05:12 WBC 6.8 (4.0-11.0) th/mm3 RBC 4.32 (4.00-5.30) mil/mm3 Hgb 14.5 (11.6-15.3) gm/dL Hct 42.9 (35.0-46.0) % MCV 99.3 (80.0-100.0) fL MCH 33.5 (27.0-34.0) pg MCHC 33.8 (32.0-36.0) % RDW 16.6 (11.6-17.2) % Plt Count 159 (150-450) th/mm3 MPV 9.0 (7.0-11.0) fL Neut % (Auto) 71.4 H (16.0-70.0) % Lymph % (Auto) 18.2 (9.0-44.0) % Imperial % (Auto) 7.2 (0.0-8.0) % Eos % (Auto) 2.5 (0.0-4.0) % Baso % (Auto) 0.7 (0.0-2.0) % Neut # (Auto) 4.8 (1.8-7.7) th/mm3 Lymph # (Auto) 1.2 (1.0-4.8) th/mm3 Imperial # (Auto) 0.5 (0.0-0.9) th/mm3 Eos # (Auto) 0.2 (0.0-0.4) th/mm3 Baso # (Auto) 0.0 (0.0-0.2) th/mm3 WBC Differential . Differential Comment Auto diff final PT (9.8-11.6) sec INR Ratio APTT (23.4-31.7) sec Sodium 136 (136-145) meq/L Potassium 4.1 (3.5-5.1) meq/L Chloride 94 L (98-107) meq/L Carbon Dioxide 37.0 H (21.0-32.0) meq/L Anion Gap 5 (5-15) meq/L BUN 29 H (7-18) mg/dL Creatinine 1.01 H (0.50-1.00) mg/dL Estimated GFR 53 L (>89) mL/min POC Glucose 113 H (68-110) mg/dl Random Glucose 120 H (74-106) mg/dL Hemoglobin A1c (4.3-6.0) % Calcium 8.4 L (8.5-10.1) mg/dL Magnesium (1.5-2.5) mg/dL Total Bilirubin (0.2-1.0) mg/dL AST (15-37) U/L ALT (10-53) U/L Alkaline Phosphatase (45-117) U/L Total Creatine Kinase (26-192) U/L Troponin I (0.02-0.05) ng/mL B-Natriuretic Peptide (0-100) pg/mL Total Protein (6.4-8.2) g/dL Albumin (3.4-5.0) g/dL Triglycerides (42-150) mg/dL Cholesterol (120-200) mg/dL LDL Cholesterol, Calc (0-99) mg/dL HDL Cholesterol (40.0-60.0) mg/dL Cholesterol/HDL Ratio Ratio Vitamin B12 (193-986) pg/mL Folate (3.1-17.5) ng/mL Urine Color (Yellw/Straw) Urine Clarity (Clear) Urine pH (5.0-8.5) Ur Specific Hemphill (1.002-1.035) Urine Protein (Neg-Trace) mg/dL Urine Glucose (UA) (Negative) mg/dL Urine Ketones (Negative) mg/dL Urine Occult Blood (Negative) Urine Nitrate (Negative) Urine Bilirubin (Negative) Urine Urobilinogen (Less than 2) mg/dL Ur Leukocyte Esterase (Negative) Urine RBC (0-3) /hpf Urine WBC (0-5) /hpf Amorphous Sediment (None) /hpf Hyaline Casts (0-3) /lpf Granular Casts (None) /lpf Waxy Casts (None) /lpf Urine Mucus (Occasional) /lpf Micro UA Comment Ur Microscopic Review Urine Culture Comments 08/05/18 08/05/18 Range/Units 08:28 12:26 WBC (4.0-11.0) th/mm3 RBC (4.00-5.30) mil/mm3 Hgb (11.6-15.3) gm/dL Hct (35.0-46.0) % MCV (80.0-100.0) fL MCH (27.0-34.0) pg MCHC (32.0-36.0) % RDW (11.6-17.2) % Plt Count (150-450) th/mm3 MPV (7.0-11.0) fL Neut % (Auto) (16.0-70.0) % Lymph % (Auto) (9.0-44.0) % Imperial % (Auto) (0.0-8.0) % Eos % (Auto) (0.0-4.0) % Baso % (Auto) (0.0-2.0) % Neut # (Auto) (1.8-7.7) th/mm3 Lymph # (Auto) (1.0-4.8) th/mm3 Imperial # (Auto) (0.0-0.9) th/mm3 Eos # (Auto) (0.0-0.4) th/mm3 Baso # (Auto) (0.0-0.2) th/mm3 WBC Differential Differential Comment PT (9.8-11.6) sec INR Ratio APTT (23.4-31.7) sec Sodium (136-145) meq/L Potassium (3.5-5.1) meq/L Chloride (98-107) meq/L Carbon Dioxide (21.0-32.0) meq/L Anion Gap (5-15) meq/L BUN (7-18) mg/dL Creatinine (0.50-1.00) mg/dL Estimated GFR (>89) mL/min POC Glucose 101 138 H (68-110) mg/dl Random Glucose (74-106) mg/dL Hemoglobin A1c (4.3-6.0) % Calcium (8.5-10.1) mg/dL Magnesium (1.5-2.5) mg/dL Total Bilirubin (0.2-1.0) mg/dL AST (15-37) U/L ALT (10-53) U/L Alkaline Phosphatase (45-117) U/L Total Creatine Kinase (26-192) U/L Troponin I (0.02-0.05) ng/mL B-Natriuretic Peptide (0-100) pg/mL Total Protein (6.4-8.2) g/dL Albumin (3.4-5.0) g/dL Triglycerides (42-150) mg/dL Cholesterol (120-200) mg/dL LDL Cholesterol, Calc (0-99) mg/dL HDL Cholesterol (40.0-60.0) mg/dL Cholesterol/HDL Ratio Ratio Vitamin B12 (193-986) pg/mL Folate (3.1-17.5) ng/mL Urine Color (Yellw/Straw) Urine Clarity (Clear) Urine pH (5.0-8.5) Ur Specific Hemphill (1.002-1.035) Urine Protein (Neg-Trace) mg/dL Urine Glucose (UA) (Negative) mg/dL Urine Ketones (Negative) mg/dL Urine Occult Blood (Negative) Urine Nitrate (Negative) Urine Bilirubin (Negative) Urine Urobilinogen (Less than 2) mg/dL Ur Leukocyte Esterase (Negative) Urine RBC (0-3) /hpf Urine WBC (0-5) /hpf Amorphous Sediment (None) /hpf Hyaline Casts (0-3) /lpf Granular Casts (None) /lpf Waxy Casts (None) /lpf Urine Mucus (Occasional) /lpf Micro UA Comment Ur Microscopic Review Urine Culture Comments Imaging Data Radiologist's impression: Chest CTA 07/30/18 22:03 CONCLUSION: 1. Masslike area in the right hilum with associated scalloping of the right main pulmonary artery. Differential includes large, nonocclusive chronic pulmonary embolus and a true mass. Would tend to favor the former. 2. Small, age indeterminate pulmonary emboli are seen of the right lower lobe pulmonary artery. 3. Small moderate right and small left pleural effusions. There is mild thickening of the interlobular septa and mild groundglass opacities of both lungs suggesting a degree of pulmonary edema. Heart is enlarged. Coronary artery calcification. Chest X-Ray 07/30/18 22:03 CONCLUSION: Probable right apical scarring or atelectasis. Moderate cardiomegaly. Venous Doppler Study 07/31/18 00:00 CONCLUSION: 1. Extensive bilateral deep venous thrombosis. Chest X-Ray 08/05/18 00:17 CONCLUSION: Mild patchy bilateral lower lung zone opacity likely representing atelectasis or mild consolidation. Mild blunting of the costophrenic sulci suggesting small pleural effusions. Discharge Plan Discharge Disposition Patient Disposition: 30 Still Patient Discharge Condition Condition: Stable Discharge Details Anticipated Discharge Date: 07/31/18 Diagnosis: CHF (congestive heart failure), Pulmonary emboli Physicians Team ED Provider: Ezekiel Vasquez Primary Care Provider: Primary Care Physici,Rosalind Attending Provider: Bronson Nichole Other Providers: Chelsea Tran ; Sorin Vera ; Gilmar Cesar ; Igor Ayon ; Samaria Layton [facility] ; [facility] Status ED Status: Left Department Discharge Information Discharge Date/Time: 07/31/18 04:15
[2018-07-30] MEDS ORDERED: Diatrizoate Meglum/Diatrizoate Sod Liq 9 ML UDC PO ONE (22:51)
[2018-07-30 22:58] LABS: Activated Partial Thrombo Time 28.9 sec (23.4-31.7); INR 1.5 Ratio; Prothrombin Time 14.8 sec (9.8-11.6)
[2018-07-30 23:01] LABS: Alanine Aminotransferase 61 U/L (10-53); Alkaline Phosphatase 158 U/L (45-117); Total Protein 6.5 g/dL (6.4-8.2); Troponin I 0.05 ng/mL (0.02-0.05)
[2018-07-30 23:19] LABS: Albumin 3.2 g/dL (3.4-5.0); Anion Gap 9 meq/L (5-15); Aspartate Aminotransferase 51 U/L (15-37); Blood Urea Nitrogen 30 mg/dL (7-18); Calcium 8.6 mg/dL (8.5-10.1); Carbon Dioxide 26.9 meq/L (21.0-32.0); Chloride 101 meq/L (98-107); Glomerular Filtration Rate 41 mL/min (>89); Glucose,Random 121 mg/dL (74-106); Sodium 137 meq/L (136-145)
--- NOTE | 2018-07-31 00:11 | CT ---
EXAM DATE: 07/30/2018 11:52 PM EST AGE/SEX: 77 years / Female INDICATIONS: Shortness of breath, syncope, bilateral lower extremity swelling. CLINICAL DATA: This is the patient's initial encounter. Patient reports that signs and symptoms have been present for 1 day and indicates a pain score of 0/10. MEDICAL/SURGICAL HISTORY: Cerebrovascular disease. Myocardial infarction. None. RADIATION DOSE: 10.90 CTDI (mGy) COMPARISON: No prior exams available for comparison. TECHNIQUE: Volumetric scanning was performed using a multi-row detector CT scanner during bolus infu devyn of 75 ml Omnipaque 350 (iohexol) nonionic water-soluble contrast as a single exam dose. The chiara a was post processed with a variety of visualization algorithms including full volume maximum intensi ty projection and sliding thin slab reformation. Using automated exposure control and adjustment of the mA and/or kV according to patient size, radiation dose was kept as low as reasonably achievable t o obtain optimal diagnostic quality images. DICOM format image data is available electronically for review and comparison. FINDINGS: There is a 2.7 x 4.8 x 2.8 cm masslike area in the right hilum with some apparent extrinsi c scalloping of the right main pulmonary artery, for example series 2 image 49, as well as attenuatio n of the right middle lobe pulmonary artery. Just distal to this region are pulmonary emboli in the r ight lower lobe pulmonary arteries. Right upper lobe pulmonary artery within normal limits. No pulmon rj embolus seen on the left. [id number] right and small left pleural effusions are present and there is mild atelectasis of both bases. Otherwise, mild thickening is seen of the interlobular septa and mild patchy groundglass opacities diffusely of both lungs. There is mild panchamber enlargement of the heart. Coronary arter y calcification noted. CONCLUSION: 1. Masslike area in the right hilum with associated scalloping of the right main pulmonary artery. D ifferential includes large, nonocclusive chronic pulmonary embolus and a true mass. Would tend to fav or the former. 2. Small, age indeterminate pulmonary emboli are seen of the right lower lobe pulmonary artery. 3. Small moderate right and small left pleural effusions. There is mild thickening of the interlobul ar septa and mild groundglass opacities of both lungs suggesting a degree of pulmonary edema. Heart i s enlarged. Coronary artery calcification. Electronically signed by: Joe Montes MD 07/31/2018 12:10 AM EST
[2018-07-31] MEDS ORDERED: Heparin 10,000 UNITS/10 ML Vial (for IV use) IV.PUSH STA (00:14)
[2018-07-31] MEDS: Heparin Drip 25,000 UNIT/250 ML BAG IV.CONT PRN ×2 (00:27→18:08)
[2018-07-31 00:57] LABS: Activated Partial Thrombo Time 29.9 sec (23.4-31.7); INR 1.5 Ratio; Prothrombin Time 15.6 sec (9.8-11.6)
[2018-07-31 01:15] LABS: Amorphous Sediment,Urine Rare /hpf; Bilirubin,Urine Negative (Negative); Clarity,Urine Hazy (Clear); Color,Urine Yellow (Yellw/Straw); Glucose,Urine (UA) Negative (Negative); Hyaline Casts,Urine 64 /lpf (0-3); Leukocyte Esterase,Urine Negative (Negative); Mucus,Urine Few /lpf (Occasional); Nitrite,Urine Negative (Negative); Specific Gravity,Urine 1.015 (1.002-1.035)
[2018-07-31] MEDS ORDERED: Acetaminophen 325 MG Tablet PO PRN (02:29)
[2018-07-31] MEDS ORDERED: Bisacodyl 10 MG Supp RECTAL PRN (02:29)
[2018-07-31] MEDS ORDERED: Sodium Chloride 0.9% 2 ML Flush PRN IV.FLUSH (02:37)
[2018-07-31 07:32] LABS: Troponin I 0.04 ng/mL (0.02-0.05)
--- NOTE | 2018-07-31 08:33 | P.HPIM ---
History of Present Illness Primary Care Physician: No Primary Care Physician Chief Complaint: shortness of breath History of Present Illness: patient is a 77 y/o female who presented to ER with shortness of breath. patient is not a good historian. per the ER she was brought to ER with a next- door neighbor for evaluation of generalized weakness and probable syncopal episode that happened earlier. Neighbors noticed that she had not been as active as much had been on the street is much recently. She apparently came out to get the mail and had a collapse yesterday. she says that she's had some sob over the past few days. she denies any pain, fever or cough. she says that she hasn't seen a doctor for eight or nine years. Inpatient Certification: I certify that the inpatient services were ordered in accordance with Medicare regulations governing the order. This includes certification that hospital inpatient services are reasonable and necessary and in the case of services not specified as inpatient-only under 42 CFR 419.22(n), that they are appropriately provided as inpatient services in accordance to with the 2-midnight benchmark under 43 CFR 412.3(e) Estimated Total Length of Stay (Days): 2 Plans for Post Hospital Care: Not yet determined Review of Systems All other systems reviewed negative except as stated in HPI PMFSH - History History Provided By: Patient - Medical / Surgical Hx Neg / Unobtainable Surgical History: Unable to Obtain - Medical History Medical History: Medical History (Last Reviewed 07/31/18 @ 08:28 by Lula Lemos MD) History of cardiac arrest History of heart attack History of stroke - Family History Family History: Family History (Last Updated 07/31/18 @ 08:28 by Lula Lemos MD) Other No pertinent family history - Tobacco History Second Hand Smoke Exposure: No Smoking Status: Former smoker - Alcohol History How Often Do You Have a Drink Containing Alcohol: Monthly or less - Substance Use History Substance History: No History of Abuse - Travel History Recent Travel in the [place] Within the Last 8 Weeks: No Recent Travel Out of the Country Within the Last 8 Weeks: No - Immunization History Tetanus Immunization: Unsure Hx Influenza Vaccine This Season: No Medications and Allergies Active Medications: Active Medications Acetaminophen (Tylenol) 650 mg PO Q4H PRN PRN Reason: Temp > 100.4 Al Hydroxide/Mg Hydroxide (Milk Of Magnesia Liq) 30 ml PO Q12H PRN PRN Reason: Mild Constipation Bisacodyl (Dulcolax Supp) 10 mg RECTAL DAILY PRN PRN Reason: SEVERE CONSITIPATION Furosemide (Lasix Inj) 40 mg IV.PUSH BID@0900,1800 ABDELRAHMAN Heparin Sodium/Dextrose (Heparin/D5w 25,000 U/250 Ml) 25,000 unit in 250 mls @ 0 mls/hr IV.CONT TITRATE PRN; Protocol PRN Reason: Per Protocol Last Admin: 07/31/18 00:27 Dose: 1,800 units/hr, 18 mls/hr Lactulose (Lactulose Liq) 30 ml PO DAILY PRN PRN Reason: SEVERE CONSITIPATION Ondansetron HCl (Zofran Inj) 4 mg IV.PUSH Q6H PRN PRN Reason: NAUSEA OR VOMITING Senna/Docusate Sodium (Sandy-Colace) 1 tab PO BID ABDELRAHMAN Sennosides (Senokot) 17.2 mg PO Q12H PRN PRN Reason: Moderate Constipation Sodium Chloride (Ns Flush) 2 ml IV.FLUSH BID ABDELRAHMAN Sodium Chloride (Ns Flush) 2 ml IV.FLUSH PRN PRN PRN Reason: FLUSH AFTER USING IV ACCESS Allergies Allergy/AdvReac Type Severity Reaction Status Date / Time Sulfa (Sulfonamide Allergy Severe unk Verified 07/31/18 04:35 Antibiotics) Home Medications Medication Instructions Recorded Confirmed Type aspirin 325 mg PO DAILY 07/31/18 07/31/18 History cholecalciferol (vitamin D3) 2,000 unit PO DAILY 07/31/18 07/31/18 History [Vitamin D3] coenzyme Q10 [CoQ-10] See Label Instructions .ROUTE 07/31/18 07/31/18 History .COMPLEX Exam Vital signs: Vital Signs 07/30/18 17:30 07/30/18 22:01 07/30/18 22:03 Temperature 97.9 F Pulse Rate 117 H 112 H Respiratory Rate 22 20 Blood Pressure 132/85 144/106 H Pulse Oximetry 93 L 95 95 07/31/18 01:29 07/31/18 03:32 07/31/18 04:30 Temperature 97.0 F L Pulse Rate 102 H 92 H 104 H Respiratory Rate 18 18 19 Blood Pressure 155/89 H 151/88 H 139/66 Pulse Oximetry 99 96 07/31/18 08:00 Temperature Pulse Rate Respiratory Rate 18 Blood Pressure Pulse Oximetry Intake & Output 07/30/18 07/31/18 07/31/18 18:59 06:59 18:59 Output Total 1575 / 1575 Balance -1575 / -1575 Weight 102.4 kg 106 kg Output: Urine Amount (Catheter) 1575 / 1575 Indwelling Urethral Catheter 1575 / 1575 Other: Weight On Admission 106 kg - Constitutional no acute distress - Routine HEENT Exam Eye: Present: PERRL - Routine Neck Exam Present: supple - Routine Respiratory Exam Present: CTA bilaterally - Routine Cardiovascular Exam Present: RRR - Routine Abdominal Exam Present: soft - Routine Extremities Exam Present: edema Comments: bilateral pedal edema. - Routine Skin Exam Present: rash (chronic skin changes on the legs bilaterally.) - Routine Neurological Exam Present: alert Results - Labs CBC & Chem 7: 07/30/18 22:30 07/30/18 22:30 Labs: Short CBC 07/30/18 Range/Units 22:30 WBC 8.4 (4.0-11.0) th/mm3 Hgb 16.3 H (11.6-15.3) gm/dL Hct 48.9 H (35.0-46.0) % Plt Count 110 L (150-450) th/mm3 BMP 07/30/18 22:30 Sodium 137 Potassium 5.0 Chloride 101 Carbon Dioxide 26.9 BUN 30 H Creatinine 1.27 H Calcium 8.6 Cardiac Enzymes 07/30/18 07/31/18 Range/Units 22:30 06:33 Total Creatine Kinase 63 (26-192) U/L Troponin I 0.05 0.04 (0.02-0.05) ng/mL Liver Function 07/30/18 Range/Units 22:30 Total Bilirubin 1.1 H (0.2-1.0) mg/dL AST 51 H (15-37) U/L ALT 61 H (10-53) U/L Alkaline Phosphatase 158 H (45-117) U/L Albumin 3.2 L (3.4-5.0) g/dL Urine 07/31/18 Range/Units 01:00 Urine Color Yellow (Yellw/Straw) Urine Clarity Hazy H (Clear) Urine pH 5.0 (5.0-8.5) Ur Specific [place] 1.015 (1.002-1.035) Urine Protein 30 H (Neg-Trace) mg/dL Urine Glucose (UA) Negative (Negative) mg/dL - Imaging Impressions Chest CTA 07/30/18 22:03 CONCLUSION: 1. Masslike area in the right hilum with associated scalloping of the right main pulmonary artery. Differential includes large, nonocclusive chronic pulmonary embolus and a true mass. Would tend to favor the former. 2. Small, age indeterminate pulmonary emboli are seen of the right lower lobe pulmonary artery. 3. Small moderate right and small left pleural effusions. There is mild thickening of the interlobular septa and mild groundglass opacities of both lungs suggesting a degree of pulmonary edema. Heart is enlarged. Coronary artery calcification. Chest X-Ray 07/30/18 22:03 CONCLUSION: Probable right apical scarring or atelectasis. Moderate cardiomegaly. Caprini VTE Risk Assessment Caprini VTE Risk Assessment: Moderate/High Risk (score >= 2) Caprini Risk Assessment Model: Point Value = 1 Point Value = 2 Point Value = 3 Point Value = 5 Age 41-60 Minor surgery BMI > 25 kg/m2 Swollen legs Varicose veins or History of unexplained or recurrent spontaneous Oral contraceptives or hormone replacement Sepsis (< 1 month) Serious lung disease, including pneumonia (< 1 month) Abnormal pulmonary function Acute myocardial infarction Congestive heart failure (< 1 month) History of inflammatory bowel disease Medical patient at bed rest Age 61-74 Arthroscopic surgery Major open surgery (> 45 min) Laparoscopic surgery (> 45 min) Malignancy Confined to bed (> 72 hours) Immobilizing plaster cast Central venous access Age >= 75 History of VTE Family history of VTE Factor V Leiden Prothrombin [id number] Lupus anticoagulant Anticardiolipin antibodies Elevated serum homocysteine Heparin-induced thrombocytopenia Other congenital or acquired thrombophilia Stroke (< 1 month) Elective arthroplasty Hip, pelvis, or leg fracture Acute spinal cord injury (< 1 month) Prophylaxis Regimen: Total Risk Factor Score Risk Level Prophylaxis Regimen 0-1 Low Early ambulation 2 Moderate Order ONE of the following: *Sequential Compression Device (SCD) *Heparin 5000 units SQ BID 3-4 Higher Order ONE of the following medications: *Heparin 5000 units SQ TID *Enoxaparin/Lovenox 40 mg SQ daily (WT < 150 kg, CrCl > 30 mL/min) *Enoxaparin/Lovenox 30 mg SQ daily (WT < 150 kg, CrCl > 10-29 mL/min) *Enoxaparin/Lovenox 30 mg SQ BID (WT < 150 kg, CrCl > 30 mL/min) AND/OR *Sequential Compression Device (SCD) 5 or more Highest Order ONE of the following medications: *Heparin 5000 units SQ TID (Preferred with Epidurals) *Enoxaparin/Lovenox 40 mg SQ daily (WT < 150 kg, CrCl > 30 mL/min) *Enoxaparin/Lovenox 30 mg SQ daily (WT < 150 kg, CrCl > 10-29 mL/min) *Enoxaparin/Lovenox 30 mg SQ BID (WT < 150 kg, CrCl > 30 mL/min) AND *Sequential Compression Device (SCD) Assessment and Plan - Plan A/P - PE continue Heparin drip- check venous doppler of the lower extremities and consult Hematology. -pulmonary edema continue Lasix- echo pending. -renal insufficiency with unknown duration; will monitor. - chronic skin changes- consult wound care. Discussed Condition With: the patient. Discharge Planning: pending the clinical course and w/u. H&P: Quality - VTE Deep Vein Thrombosis/Pulmonary Embolism Present on Admission: No
--- NOTE | 2018-07-31 09:33 | US ---
EXAM DATE: 07/31/2018 9:25 AM EST AGE/SEX: 77 years / Female INDICATIONS: Bilateral leg swelling. CLINICAL DATA: This is the patient's initial encounter. Patient reports that signs and symptoms have been present for 1 day and indicates a pain score of 0/10. MEDICAL/SURGICAL HISTORY: . Hearty attack. Stroke. . None. COMPARISON: No prior exams available for comparison. TECHNIQUE: Venous ultrasound of both lower extremities was performed from the inguinal ligament to t he proximal calf. Real-time, color Doppler and spectral tracing, compression and augmentation techni ques were used. FINDINGS: Right Leg: The examination demonstrates deep venous thrombosis extending from the common femoral vei n throughout the right thigh and down to the level the posterior tibial vein. Left Leg: The examination demonstrates deep venous thrombosis extending throughout the left thigh. T he distal left leg cannot be examined in detail due to the patient's inability to cooperate with the examination. Other: None. CONCLUSION: 1. Extensive bilateral deep venous thrombosis. Electronically signed by: Manoj Balderas MD 07/31/2018 9:32 AM EST
[2018-07-31] MEDS: Senna/Docusate Sodium 8.6/50 MG Tablet PO SCH ×3 (10:30→21:52)
[2018-07-31] MEDS: Sodium Chloride 0.9% 2 ML Flush BID IV.FLUSH SCH ×2 (10:31→21:51)
--- NOTE | 2018-07-31 13:42 | P.PNWCN ---
Wound Care Nurse Consult Description: Received wound management consult for Legs Communicated with: SAMIA Nugent and call placed to Doctor Aminta for orders. Recommendation: Please apply shaving cream to bilateral lower legs and apply warm moist towel loosely for 5 minutes rinse and dry gently. Apply lotion do not message legs and leave open to air. Wound/Pressure Injury - Additional Information Patient seen on for evaluation of wound management of legs. Patient was seen and assessed with sports book writer and SAMIA Nugent and other RN in room. Patient does not have any open wounds on bilateral legs at this time. BLE present with pitting edema of 2+, erythema, and areas of discoloration. Legs also presents with dry scaly skin.Wound care recommendations are noted above for skin care.
[2018-07-31 14:19] LABS: Troponin I 0.04 ng/mL (0.02-0.05)
--- NOTE | 2018-07-31 15:57 | ECG ---
Date Performed: 07/30/2018 Time Performed: 22:15:50 PTAGE: 77 years EKG: SINUS TACHYCARDIA WITH OCCASIONAL VENTRICULAR PREMATURE COMPLEXES LOW QRS VOLTAGE IN EXTREM ITY LEADS LEFT POSTERIOR FASCICULAR BLOCK ANTEROSEPTAL MYOCARDIAL INFARCTION ABNORMAL ECG INTERPRETAT ION BASED ON A DEFAULT AGE OF 40 YEARS PREVIOUS TRACING : 01/20/2009 07.17 Compared to previous tracing, the rightward shift and axis is new. The PVC's are new. The criteria for the possible anteroseptal infarct are new although there was previously delayed R-wave transition. The inferolateral T-wave changes have improved. Clini nguyễn correlation is recommended DOCTOR: Criselda Porter Interpretating Date/Time 07/31/2018 15:57:22
--- NOTE | 2018-07-31 16:18 | ECHRPT ---
Indication: Heart Failure CONCLUSIONS Mildly dilated left ventricle. Mild concentric left ventricular hypertrophy. The left ventricular systolic function is severely reduced with an estimated ejection fraction less than 20%. There is a probable left ventricular apical thrombus present. Severe anterior, anterolateral, apical, and inferoapical akinesis. Moderate mitral valve regurgitation. Mitral annular calcification is present. Aortic valve sclerosis is present. There is mild tricuspid valve regurgitation. The estimated pulmonary arterial pressure is 45 mmHg. Dilated inferior vena cava with poor inspiration collapse consistent with elevated right atrial pres sure. BP: / HR: Rhythm: MEASUREMENTS (Male / Female) Normal Values Technical Quality:Technically difficult study 2D ECHO LV Diastolic Diameter PLAX 5.0 cm 4.2 - 5.9 / 3.9 - 5.3 cm LV Systolic Diameter PLAX 4.5 cm IVS Diastolic Thickness 1.0 cm 0.6 - 1.0 / 0.6 - 0.9 cm LVPW Diastolic Thickness 1.0 cm 0.6 - 1.0 / 0.6 - 0.9 cm LV Relative Wall Thickness 0.4 RV Internal Dim ED PLAX 3.1 cm LVOT Diameter 2.0 cm Aortic Root Diameter 2.7 cm LA Systolic Diameter LX 3.2 cm 3.0 - 4.0 / 2.7 - 3.8 cm DOPPLER AV Peak Velocity 110.0 cm/s AV Peak Gradient 4.8 mmHg LVOT Peak Velocity 97.2 cm/s LVOT Peak Gradient 3.8 mmHg AV Area Cont Eq pk 2.8 cm Mitral E Point Velocity 90.8 cm/s Mitral A Point Velocity 74.5 cm/s Mitral E to A Ratio 1.2 LV E' Lateral Velocity 4.8 cm/s Mitral E to LV E' Lateral Ratio 19.0 LV E' Septal Velocity 6.3 cm/s Mitral E to LV E' Septal Ratio 14.3 TR Peak Velocity 296.0 cm/s TR Peak Gradient 35.0 mmHg Right Atrial Pressure 10.0 mmHg Pulmonary Artery Systolic Pressu 45.0 mmHg Right Ventricular Systolic Press 45.0 mmHg PV Peak Velocity 77.4 cm/s PV Peak Gradient 2.4 mmHg FINDINGS LEFT VENTRICLE Mildly dilated left ventricle. Mild concentric left ventricular hypertrophy. The left ventricular systolic function is severely reduced with an estimated ejection fraction less than 20%. There is a probable left ventricular apical thrombus present. Severe anterior, anterolateral, apical, and inferoapical akinesis. RIGHT VENTRICLE Normal right ventricular size and systolic function. LEFT ATRIUM The left atrial size is normal. RIGHT ATRIUM The right atrial size is normal. ATRIAL SEPTUM Normal atrial septal thickness without atrial level shunting by limited color doppler interrogation. AORTA The aortic root and proximal ascending aorta are normal in size on limited imaging. MITRAL VALVE Moderate mitral valve regurgitation. Mitral annular calcification is present. AORTIC VALVE Trileaflet aortic valve. Aortic valve sclerosis is present. TRICUSPID VALVE There is mild tricuspid valve regurgitation. The estimated pulmonary arterial pressure is 45 mmHg. PULMONARY VALVE No pulmonary valve regurgitation or stenosis. VESSELS Dilated inferior vena cava with poor inspiration collapse consistent with elevated right atrial pres sure. PERICARDIUM No pericardial effusion. Calvin Hogan MD, FACC (Electronically Signed) Final Date:31 July 2018 16:17 Amended: 31 July 2018 16:19
--- NOTE | 2018-07-31 18:22 | P.CON ---
History of Present Illness Service: Hematology/oncology. Consult date: 07/31/18 Requesting Physician: Lula Lemos Reason for Consult: Pulmonary emboli associated bilateral lower extremity deep venous thrombose Primary Care Provider: No Primary Care Physician Chief Complaint: Difficulty breathing, leg swelling and generalized fatigue. History of Present Illness: Ms. Ohara is a 77-year-old female who was brought in to [facility] on after she collapsed while walking to the mailbox. The patient reports having symptoms of difficulty breathing with minimal exertion and generalized weakness for several weeks now. She tells me "the flu shot did this to me "; she reports having had a flu shot at [employer] within the last month and a half or so. The patient reports not having been to a doctor in a very long period of time. She reports having had a history of a heart attack in 1998 which required a stent placement, she reports in 2002 she had a "flat line" heart attack and at about the same time she had a stroke. She reports having symptoms of chronic leg swelling which makes it difficult for her to ambulate at baseline. Over the past several weeks she has had increasing difficulty breathing with minimal exertion. After presented to [facility] on 07/30/[address] angiogram of the thorax which revealed a chronic appearing right side portal vein thrombosis , she was also found to have bilateral lower extremity deep venous thromboses. Echocardiogram revealed a left ventricular ejection fraction of approximately 20 % with dyskinesia involving the lateral wall and apex. She was found to have borderline pulmonary hypertension with a peak pulmonary arterial pressure of 45 mmHg. She has been initiated on a heparin infusion for anticoagulation. The hematology service has been asked to see her to help assist in management of anticoagulation. Review of Systems Constitutional: Reports lack of energy, Reports malaise, Reports weakness, Denies anorexia Eyes: Denies change in vision Ears, Nose, Mouth, and Throat: Denies change in voice, Denies headache(s) Cardiovascular: Reports chest pain, Reports chest pain with activity, Reports shortness of breath, Reports shortness of breath with activity Respiratory: Reports cough Gastrointestinal: Denies abdominal pain, Denies black, tarry stools, Denies bright, red blood in stools, Denies vomiting Genitourinary: Denies blood in urine Musculoskeletal: Reports abnormal walking, Reports back pain, Reports body aches Skin/Breast: Denies acne Neurologic: Denies abnormal hearing, Denies abnormal speech Psychiatric: Reports anxiety Endocrine: Reports cold intolerance Hematologic/Lymphatic: Denies easy bleeding Allergic/Immunologic: Denies GI upset with certain foods PMFSH - History History Provided By: Patient - Medical History Medical History: Medical History (Last Reviewed 07/31/18 @ 18:10 by Sorin Vera MD) History of cardiac arrest History of heart attack History of stroke - Surgical History Surgical History: Surgical History (Last Updated 07/31/18 @ 18:10 by Sorin Vera MD) H/O cardiac catheterization - Family History Family History: Family History (Last Updated 07/31/18 @ 08:28 by Lula Lemos MD) Other No pertinent family history - Social History I have reviewed the patient's Social History: Yes - Tobacco History Second Hand Smoke Exposure: No Smoking Status: Former smoker - Alcohol History How Often Do You Have a Drink Containing Alcohol: Monthly or less - Substance Use History Substance History: No History of Abuse - Travel History History of Recent Travel: No Recent Travel in the [place] Within the Last 8 Weeks: No Recent Travel Out of the Country Within the Last 8 Weeks: No - Immunization History Tetanus Immunization: Unsure Hx Influenza Vaccine This Season: No Medications and Allergies Active Medications: Active Medications Acetaminophen (Tylenol) 650 mg PO Q4H PRN PRN Reason: Temp > 100.4 Al Hydroxide/Mg Hydroxide (Milk Of Magnesia Liq) 30 ml PO Q12H PRN PRN Reason: Mild Constipation Bisacodyl (Dulcolax Supp) 10 mg RECTAL DAILY PRN PRN Reason: SEVERE CONSITIPATION Furosemide (Lasix Inj) 40 mg IV.PUSH BID@0900,1800 [facility] Last Admin: 07/31/18 17:39 Dose: 40 mg Heparin Sodium/Dextrose (Heparin/D5w 25,000 U/250 Ml) 25,000 unit in 250 mls @ 0 mls/hr IV.CONT TITRATE PRN; Protocol PRN Reason: Per Protocol Last Titration: 07/31/18 14:55 Dose: Infused Lactulose (Lactulose Liq) 30 ml PO DAILY PRN PRN Reason: SEVERE CONSITIPATION Ondansetron HCl (Zofran Inj) 4 mg IV.PUSH Q6H PRN PRN Reason: NAUSEA OR VOMITING Senna/Docusate Sodium (Sandy-Colace) 1 tab PO BID [facility] Last Admin: 07/31/18 10:30 Dose: 1 tab Sennosides (Senokot) 17.2 mg PO Q12H PRN PRN Reason: Moderate Constipation Sodium Chloride (Ns Flush) 2 ml IV.FLUSH BID [facility] Last Admin: 07/31/18 10:31 Dose: 2 ml Sodium Chloride (Ns Flush) 2 ml IV.FLUSH PRN PRN PRN Reason: FLUSH AFTER USING IV ACCESS Allergies Allergy/AdvReac Type Severity Reaction Status Date / Time Sulfa (Sulfonamide Allergy Severe unk Verified 07/31/18 04:35 Antibiotics) Home Medications Medication Instructions Recorded Confirmed Type aspirin 325 mg PO DAILY 07/31/18 07/31/18 History cholecalciferol (vitamin D3) 2,000 unit PO DAILY 07/31/18 07/31/18 History [Vitamin D3] coenzyme Q10 [CoQ-10] See Label Instructions .ROUTE 07/31/18 07/31/18 History .COMPLEX Physical Exam Vital signs: Vital Signs 07/30/18 22:01 07/30/18 22:03 07/31/18 01:29 Temperature Pulse Rate 112 H 102 H Respiratory Rate 20 18 Blood Pressure 144/106 H 155/89 H Pulse Oximetry 95 95 99 07/31/18 03:32 07/31/18 04:30 07/31/18 08:00 Temperature 97.0 F L Pulse Rate 92 H 104 H Respiratory Rate 18 19 18 Blood Pressure 151/88 H 139/66 Pulse Oximetry 96 95 07/31/18 08:45 07/31/18 12:30 07/31/18 15:05 Temperature 97.5 F L 98.1 F Pulse Rate 99 H 94 H 96 H Respiratory Rate 19 19 19 Blood Pressure 121/60 144/77 H 114/57 L Pulse Oximetry 95 95 98 Intake & Output 07/30/18 07/31/18 07/31/18 18:59 06:59 18:59 Intake Total 250 / 250 Output Total 1575 / 1575 2900 / 2900 Balance -1575 / -1575 -2650 / -2650 Weight 102.4 kg 106 kg Intake: IV 250 / 250 Heparin/D5W 25,000 U/250 mL 25, 250 / 250 000 unit In 250 ml @ Per Protocol IV.CONT TITRATE PRN Rx #:[id number] Output: Urine 2900 / 2900 Urine Amount (Catheter) 1575 / 1575 Indwelling Urethral Catheter 1575 / 1575 Other: Weight On Admission 106 kg Narrative: General physical appearance: Ms. Ohara is an elderly lady, she has somewhat of a disheveled and neglected appearance. She is awake, alert and oriented. She appears to be anxious and at times has an aggressive and confrontational demeanor. HEENT: Head atraumatic normocephalic, conjunctive a are non-pale sclerae anicteric. Oral exam poor dental hygiene, no pharyngeal erythema. Neck exam no palpable cervical supraclavicular adenopathy. Respiratory: Decreased bibasilar breath sounds, no rhonchi or wheezes. Cardiovascular: Regular rate and rhythm, S1-S2 with a systolic murmur, thready peripheral pulses. Lower extremities: Bilateral chronic appearing pretibial edema, chronic appearing skin changes. Abdominal exam: Obese belly, soft, no obvious tenderness, no palpable organ enlargement. 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 She is able to move all 4 limbs spontaneously. Skin: Chronic venous stasis changes over the lower extremities. - Urinary Catheter Management Indwelling Urethral Catheter Cath placed during this visit: yes Reason for continuing: Acute urinary retention Insertion date: 07/31/18 Insertion time: 01:07 Results - Labs CBC & Chem 7: 07/30/18 22:30 07/30/18 22:30 Labs: Laboratory Results - last 24 hr 07/30/18 07/30/18 07/30/18 22:30 22:30 22:30 WBC 8.4 RBC 4.99 Hgb 16.3 H Hct 48.9 H MCV 97.9 MCH 32.7 MCHC 33.4 RDW 16.7 Plt Count 110 L MPV 8.9 Neut % (Auto) 72.0 H Lymph % (Auto) 18.4 [place] % (Auto) 8.2 H Eos % (Auto) 0.8 Baso % (Auto) 0.6 Neut # (Auto) 6.1 Lymph # (Auto) 1.6 [place] # (Auto) 0.7 Eos # (Auto) 0.1 Baso # (Auto) 0.1 WBC Differential . Differential Comment Auto diff final PT 14.8 H INR 1.5 APTT 28.9 Sodium 137 Potassium 5.0 Chloride 101 Carbon Dioxide 26.9 Anion Gap 9 BUN 30 H Creatinine 1.27 H Estimated GFR 41 L Random Glucose 121 H Calcium 8.6 Total Bilirubin 1.1 H AST 51 H ALT 61 H Alkaline Phosphatase 158 H Total Creatine Kinase Troponin I 0.05 B-Natriuretic Peptide Total Protein 6.5 Albumin 3.2 L Urine Color Urine Clarity Urine pH Ur Specific [place] Urine Protein Urine Glucose (UA) Urine Ketones Urine Occult Blood Urine Nitrate Urine Bilirubin Urine Urobilinogen Ur Leukocyte Esterase Urine RBC Urine WBC Amorphous Sediment Hyaline Casts Granular Casts Waxy Casts Urine Mucus Micro UA Comment Ur Microscopic Review Urine Culture Comments 07/30/18 07/31/18 07/31/18 22:30 00:30 01:00 WBC RBC Hgb Hct MCV MCH MCHC RDW Plt Count MPV Neut % (Auto) Lymph % (Auto) [place] % (Auto) Eos % (Auto) Baso % (Auto) Neut # (Auto) Lymph # (Auto) [place] # (Auto) Eos # (Auto) Baso # (Auto) WBC Differential Differential Comment PT 15.6 H INR 1.5 APTT 29.9 Sodium Potassium Chloride Carbon Dioxide Anion Gap BUN Creatinine Estimated GFR Random Glucose Calcium Total Bilirubin AST ALT Alkaline Phosphatase Total Creatine Kinase Troponin I B-Natriuretic Peptide 2019 H Total Protein Albumin Urine Color Yellow Urine Clarity Hazy H Urine pH 5.0 Ur Specific [place] 1.015 Urine Protein 30 H Urine Glucose (UA) Negative Urine Ketones Negative Urine Occult Blood Negative Urine Nitrate Negative Urine Bilirubin Negative Urine Urobilinogen Less than 2 Ur Leukocyte Esterase Negative Urine RBC 2 Urine WBC 1 Amorphous Sediment Rare H Hyaline Casts 64 Granular Casts 4 Waxy Casts 3 Urine Mucus Few H Micro UA Comment Culture not ind Ur Microscopic Review Not Reportable Urine Culture Comments Culture not ind 07/31/18 07/31/18 07/31/18 06:33 13:31 13:31 WBC RBC Hgb Hct MCV MCH MCHC RDW Plt Count MPV Neut % (Auto) Lymph % (Auto) [place] % (Auto) Eos % (Auto) Baso % (Auto) Neut # (Auto) Lymph # (Auto) [place] # (Auto) Eos # (Auto) Baso # (Auto) WBC Differential Differential Comment PT INR APTT 277.5 H* Sodium Potassium Chloride Carbon Dioxide Anion Gap BUN Creatinine Estimated GFR Random Glucose Calcium Total Bilirubin AST ALT Alkaline Phosphatase Total Creatine Kinase 63 66 Troponin I 0.04 0.04 B-Natriuretic Peptide Total Protein Albumin Urine Color Urine Clarity Urine pH Ur Specific [place] Urine Protein Urine Glucose (UA) Urine Ketones Urine Occult Blood Urine Nitrate Urine Bilirubin Urine Urobilinogen Ur Leukocyte Esterase Urine RBC Urine WBC Amorphous Sediment Hyaline Casts Granular Casts Waxy Casts Urine Mucus Micro UA Comment Ur Microscopic Review Urine Culture Comments 07/31/18 07/31/18 15:00 17:15 WBC RBC Hgb Hct MCV MCH MCHC RDW Plt Count MPV Neut % (Auto) Lymph % (Auto) [place] % (Auto) Eos % (Auto) Baso % (Auto) Neut # (Auto) Lymph # (Auto) [place] # (Auto) Eos # (Auto) Baso # (Auto) WBC Differential Differential Comment PT INR APTT 173.9 H* D 70.6 H D Sodium Potassium Chloride Carbon Dioxide Anion Gap BUN Creatinine Estimated GFR Random Glucose Calcium Total Bilirubin AST ALT Alkaline Phosphatase Total Creatine Kinase Troponin I B-Natriuretic Peptide Total Protein Albumin Urine Color Urine Clarity Urine pH Ur Specific [place] Urine Protein Urine Glucose (UA) Urine Ketones Urine Occult Blood Urine Nitrate Urine Bilirubin Urine Urobilinogen Ur Leukocyte Esterase Urine RBC Urine WBC Amorphous Sediment Hyaline Casts Granular Casts Waxy Casts Urine Mucus Micro UA Comment Ur Microscopic Review Urine Culture Comments - Imaging Impressions Chest CTA 07/30/18 22:03 CONCLUSION: 1. Masslike area in the right hilum with associated scalloping of the right main pulmonary artery. Differential includes large, nonocclusive chronic pulmonary embolus and a true mass. Would tend to favor the former. 2. Small, age indeterminate pulmonary emboli are seen of the right lower lobe pulmonary artery. 3. Small moderate right and small left pleural effusions. There is mild thickening of the interlobular septa and mild groundglass opacities of both lungs suggesting a degree of pulmonary edema. Heart is enlarged. Coronary artery calcification. Chest X-Ray 07/30/18 22:03 CONCLUSION: Probable right apical scarring or atelectasis. Moderate cardiomegaly. Venous Doppler Study 07/31/18 00:00 CONCLUSION: 1. Extensive bilateral deep venous thrombosis. Assessment and Plan - Plan Ms. Ohara is a 77-year-old female she appears to have significant chronic medical comorbid conditions which she seems to have neglected. She reports having had a history of coronary artery disease and a stroke. She admits to not following up with primary care physicians and tells me she refuses to take any medications. She comes into the hospital with progressive weakness, breathlessness with minimal exertion and chronic lower extremity edema. The appearance of her lower extremities gives the impression that she has had chronic lower extremity edema with resultant venous stasis changes of the skin. The patient was found to have what appears to be a chronic appearing right pulmonary artery thrombus which presents an interesting way and that it appears to be adherent to the wall of the right main pulmonary artery branch. She has bilateral lower extremity venous thromboses consistent with the chronic lower extremity edema. Left ventricular ejection fraction is depleted at 20% which is likely secondary to ischemic cardiomyopathy given her history of myocardial infarctions. The patient does report a previous history of smoking, she tells me she quit smoking "years "ago. It appears she does have significant risk factors for venous thromboembolism and these include her morbid obesity, relative inactivity, heart failure and previous history of tobaccoism. She is presently on therapeutic anticoagulation with heparin. This was a very difficult patient encounter, the patient is a reasonably good historian but she seems to have a significant distrust of physicians and medications in general. She tells me for this reason she does not follow-up with physicians and for this reason she has not taken medications. I did try to commonly financial aid counselor her and listen to her grievances. I did however explained to her that at the end of the day she will need to be on some form of medication if she so chooses to have her blood clots treated. I explained to her that blood thinning medications either, and an IV drip form, subcutaneous injection form or a pill form. I will ultimately recommend she either go on a pill form of anticoagulant or go on a subcutaneous injection form. She at this point is not receptive to any of these therapeutic interventions. I have asked her to think about her options over the weekend while she remains on IV heparin as a blood thinner. Recommendations: 1. Pulmonary emboli associated bilateral lower extremity venous thromboses: For the time being it would be reasonable to maintain her on IV heparin. Heparin is currently on hold due to supratherapeutic PTT levels. She does have some hepatic and renal dysfunction which I suspect may be related to her heart failure. She will require stabilization of her renal and hepatic function. From a medical standpoint she is a candidate for therapeutic anticoagulation. At some point she will require transition to an oral anticoagulant whether it be warfarin or 1 of the oral factor X inhibitor such as Xarelto or Eliquis. Talking to the patient at length today in the presence of her nurse I am not at all confident that she will adhere to any medical advice furthermore, I doubt highly she will follow-up in the outpatient setting either.
[2018-08-01 00:36] LABS: INR 1.3 Ratio; Prothrombin Time 13.6 sec (9.8-11.6)
[2018-08-01 08:04] LABS: Baso # (Auto) 0.1 th/mm3 (0.0-0.2); Baso % (Auto) 0.7 % (0.0-2.0); Eos # (Auto) 0.2 th/mm3 (0.0-0.4); Eos % (Auto) 2.9 % (0.0-4.0); Hemoglobin 14.7 gm/dL (11.6-15.3); Lymph # (Auto) 1.7 th/mm3 (1.0-4.8); Lymph % (Auto) 22.3 % (9.0-44.0); Mean Corpuscular HGB Conc 33.4 % (32.0-36.0); Mean Corpuscular Hemoglobin 33.3 pg (27.0-34.0); Mean Corpuscular Volume 99.8 fL (80.0-100.0); Mean Platelet Volume 9.1 fL (7.0-11.0); Mono # (Auto) 0.7 th/mm3 (0.0-0.9); Mono % (Auto) 9.8 % (0.0-8.0); Neut # (Auto) 4.8 th/mm3 (1.8-7.7); Neut % (Auto) 64.3 % (16.0-70.0); Platelet Count 119 th/mm3 (150-450); Red Blood Count 4.41 mil/mm3 (4.00-5.30); White Blood Count 7.4 th/mm3 (4.0-11.0)
[2018-08-01 08:40] LABS: Alkaline Phosphatase 123 U/L (45-117); Total Protein 5.6 g/dL (6.4-8.2)
[2018-08-01] MEDS: Sodium Chloride 0.9% 2 ML Flush BID IV.FLUSH SCH ×2 (08:42→21:52)
[2018-08-01] MEDS: Senna/Docusate Sodium 8.6/50 MG Tablet PO SCH ×3 (08:43→21:51)
[2018-08-01 08:51] LABS: Alanine Aminotransferase 47 U/L (10-53); Albumin 2.6 g/dL (3.4-5.0); Anion Gap 9 meq/L (5-15); Aspartate Aminotransferase 30 U/L (15-37); Blood Urea Nitrogen 27 mg/dL (7-18); Chloride 99 meq/L (98-107); Glomerular Filtration Rate 42 mL/min (>89); Glucose,Random 111 mg/dL (74-106); Potassium 4.1 meq/L (3.5-5.1); Sodium 139 meq/L (136-145)
--- NOTE | 2018-08-01 13:28 | P.PN ---
Subjective Interval history: Follow up for PE, generalized weakness, inability to care for self. The patient is seen while talking on her phone with her sister. She endorses some occasional mild SOB, but denies any chest pain. O2 sat currently 97% on 4L NC. Discussed importance of anticoagulation due to PE, patient seems to verbalize some understanding, but then she states she's short of breath due to allergies and congestion. She reports an occasional nonproductive cough. Denies fevers/ chills. She is tolerating oral intake. She admits to feeling weak recently and agrees to rehab placement. She denies any other medical complaints at this time. Physical Exam Vital signs: Vital Signs 07/31/18 15:05 07/31/18 20:00 07/31/18 21:51 Temperature 98.1 F 98.2 F Pulse Rate 96 H 91 H 97 H Respiratory Rate 19 16 Blood Pressure 114/57 L 141/88 H Pulse Oximetry 98 100 08/01/18 00:00 08/01/18 01:31 08/01/18 04:00 Temperature 97.6 F 97.8 F Pulse Rate 94 H 98 H 85 Respiratory Rate 18 16 Blood Pressure 122/59 L 109/60 Pulse Oximetry 95 97 08/01/18 08:00 08/01/18 09:54 08/01/18 12:00 Temperature 96.2 F L 98.1 F Pulse Rate 89 82 Respiratory Rate 17 17 Blood Pressure 144/85 H 127/81 Pulse Oximetry 100 97 93 L Intake & Output 07/31/18 08/01/18 08/01/18 18:59 06:59 18:59 Intake Total 250 / 250 Output Total 2900 / 2900 800 / 800 Balance -2650 / -2650 -800 / -800 Weight 106 kg Intake: IV 250 / 250 Heparin/D5W 25,000 U/250 mL 25, 250 / 250 000 unit In 250 ml @ Per Protocol IV.CONT TITRATE PRN Rx #:[id number] Output: Urine 2900 / 2900 Urine Amount (Catheter) 800 / 800 Indwelling Urethral Catheter 800 / 800 Narrative: GENERAL: Elderly obese female patient in NAD. Slightly unkempt appearing. SKIN: Warm and dry. No rash. HEENT: Normocephalic. Atraumatic. Pupils equal and round. Mucous membranes pink and moist. Poor dentition. NECK: Supple. Trachea midline. CARDIOVASCULAR: Regular rate and rhythm. No murmur appreciated. RESPIRATORY: No accessory muscle use. Clear to auscultation. Breath sounds equal bilaterally. GASTROINTESTINAL: Abdomen soft, non-tender, nondistended. Normoactive bowel sounds x4. MUSCULOSKELETAL: No obvious deformities. BLE chronic venous stasis changes with nonpitting edema. NEUROLOGICAL: Awake and alert. No obvious cranial nerve deficits. Motor grossly within normal limits. Moving all extremities spontaneously. Normal speech. - Urinary Catheter Management Indwelling Urethral Catheter Cath placed during this visit: yes Reason for continuing: Acute urinary retention Insertion date: 07/31/18 Insertion time: 01:07 Results - Labs CBC & Chem 7: 08/01/18 07:50 08/01/18 07:50 Laboratory Results - last 24 hr 07/31/18 07/31/18 07/31/18 13:31 13:31 15:00 WBC RBC Hgb Hct MCV MCH MCHC RDW Plt Count MPV Neut % (Auto) Lymph % (Auto) [place] % (Auto) Eos % (Auto) Baso % (Auto) Neut # (Auto) Lymph # (Auto) [place] # (Auto) Eos # (Auto) Baso # (Auto) WBC Differential Differential Comment PT INR APTT 277.5 H* 173.9 H* D Sodium Potassium Chloride Carbon Dioxide Anion Gap BUN Creatinine Estimated GFR Random Glucose Calcium Total Bilirubin AST ALT Alkaline Phosphatase Total Creatine Kinase 66 Troponin I 0.04 Total Protein Albumin 07/31/18 07/31/18 07/31/18 17:15 23:50 23:50 WBC RBC Hgb Hct MCV MCH MCHC RDW Plt Count MPV Neut % (Auto) Lymph % (Auto) [place] % (Auto) Eos % (Auto) Baso % (Auto) Neut # (Auto) Lymph # (Auto) [place] # (Auto) Eos # (Auto) Baso # (Auto) WBC Differential Differential Comment PT 13.6 H INR 1.3 APTT 70.6 H D 57.5 H Sodium Potassium Chloride Carbon Dioxide Anion Gap BUN Creatinine Estimated GFR Random Glucose Calcium Total Bilirubin AST ALT Alkaline Phosphatase Total Creatine Kinase Troponin I Total Protein Albumin 08/01/18 08/01/18 08/01/18 07:50 07:50 07:50 WBC 7.4 RBC 4.41 Hgb 14.7 Hct 44.0 MCV 99.8 MCH 33.3 MCHC 33.4 RDW 17.0 Plt Count 119 L MPV 9.1 Neut % (Auto) 64.3 Lymph % (Auto) 22.3 [place] % (Auto) 9.8 H Eos % (Auto) 2.9 Baso % (Auto) 0.7 Neut # (Auto) 4.8 Lymph # (Auto) 1.7 [place] # (Auto) 0.7 Eos # (Auto) 0.2 Baso # (Auto) 0.1 WBC Differential . Differential Comment Auto diff final PT INR APTT 120.2 H* D Sodium 139 Potassium 4.1 D Chloride 99 Carbon Dioxide 31.0 Anion Gap 9 BUN 27 H Creatinine 1.24 H Estimated GFR 42 L Random Glucose 111 H Calcium 8.0 L Total Bilirubin 0.6 AST 30 ALT 47 Alkaline Phosphatase 123 H Total Creatine Kinase Troponin I Total Protein 5.6 L D Albumin 2.6 L D 08/01/18 10:55 WBC RBC Hgb Hct MCV MCH MCHC RDW Plt Count MPV Neut % (Auto) Lymph % (Auto) [place] % (Auto) Eos % (Auto) Baso % (Auto) Neut # (Auto) Lymph # (Auto) [place] # (Auto) Eos # (Auto) Baso # (Auto) WBC Differential Differential Comment PT INR APTT 83.2 H D Sodium Potassium Chloride Carbon Dioxide Anion Gap BUN Creatinine Estimated GFR Random Glucose Calcium Total Bilirubin AST ALT Alkaline Phosphatase Total Creatine Kinase Troponin I Total Protein Albumin - Imaging Chest CTA 07/30/18 22:03 CONCLUSION: 1. Masslike area in the right hilum with associated scalloping of the right main pulmonary artery. Differential includes large, nonocclusive chronic pulmonary embolus and a true mass. Would tend to favor the former. 2. Small, age indeterminate pulmonary emboli are seen of the right lower lobe pulmonary artery. 3. Small moderate right and small left pleural effusions. There is mild thickening of the interlobular septa and mild groundglass opacities of both lungs suggesting a degree of pulmonary edema. Heart is enlarged. Coronary artery calcification. Chest X-Ray 07/30/18 22:03 CONCLUSION: Probable right apical scarring or atelectasis. Moderate cardiomegaly. Venous Doppler Study 07/31/18 00:00 CONCLUSION: 1. Extensive bilateral deep venous thrombosis. Assessment and Plan - Plan 77-year-old female patient presented with shortness of breath, generalized weakness, and near syncopal episode while at home. Pulmonary Embolism and Bilateral DVT: acute. -CT-PA on 07/30 showed masslike area in the right hilum with associated scalloping of the right main pulmonary artery. Differential includes large, nonocclusive chronic pulmonary embolus and a true mass. Would tend to favor the former. Small, age indeterminate pulmonary emboli are seen of the right lower lobe pulmonary artery. Small moderate right and small left pleural effusions. There is mild thickening of the interlobular septa and mild groundglass opacities of both lungs suggesting a degree of pulmonary edema. Heart is enlarged. Coronary artery calcification. -BLE Doppler U/S with extensive bilateral DVT -Continue on IV Heparin drip -Hematology consulted, appreciate recommendations, continue IV heparin drip with plan to transition to oral anticoagulation New diagnosis of Systolic CHF with Pulmonary Edema: acute, pulmonary edema seen on chest CT as above. BNP 2019. -Echo 07/31 shows severely reduced systolic function with EF < 20%, probable left ventricular apical thrombus; severe akinesis, moderate MR -started on IV Lasix 40mg po bid -start on low dose coreg and lisinopril -check lipid panel and HgbA1c -troponins flat at 0.05, 0.04, 0.04 -monitor on telemetry -fluid restrictions -consult cardiology Renal Insufficiency: unknown if acute or chronic -continue to monitor -BMP currently stable with Creatinine around 1.2, possibly CKD stage III BLE Chronic Venous Changes and Edema -suspect component of lymphedema/venous stasis in combination with DVTs -consulted wound care. -continue diuresis Elevated Blood Glucose: acute -check HgbA1c -monitor Accu-checks and cover with low dose SSI for now Hx of CVA: patient reports hx of CVA many years ago -continue aspirin -check lipid panel On IV heparin drip
[2018-08-01] MEDS: Heparin Drip 25,000 UNIT/250 ML BAG IV.CONT PRN (13:31)
--- NOTE | 2018-08-01 13:41 | P.PNONC ---
Subjective Interval history: Resting comfortably in bed. Looking forward to eating lunch. Objective Vital Signs/Intake & Output: Vital Signs 07/31/18 15:05 07/31/18 20:00 07/31/18 21:51 Temperature 98.1 F 98.2 F Pulse Rate 96 H 91 H 97 H Respiratory Rate 19 16 Blood Pressure 114/57 L 141/88 H Pulse Oximetry 98 100 08/01/18 00:00 08/01/18 01:31 08/01/18 04:00 Temperature 97.6 F 97.8 F Pulse Rate 94 H 98 H 85 Respiratory Rate 18 16 Blood Pressure 122/59 L 109/60 Pulse Oximetry 95 97 08/01/18 08:00 08/01/18 09:54 08/01/18 12:00 Temperature 96.2 F L 98.1 F Pulse Rate 89 82 Respiratory Rate 17 17 Blood Pressure 144/85 H 127/81 Pulse Oximetry 100 97 93 L Intake & Output 07/31/18 08/01/18 08/01/18 18:59 06:59 18:59 Intake Total 250 / 250 Output Total 2900 / 2900 800 / 800 Balance -2650 / -2650 -800 / -800 Weight 106 kg Intake: IV 250 / 250 Heparin/D5W 25,000 U/250 mL 25, 250 / 250 000 unit In 250 ml @ Per Protocol IV.CONT TITRATE PRN Rx #:[id number] Output: Urine 2900 / 2900 Urine Amount (Catheter) 800 / 800 Indwelling Urethral Catheter 800 / 800 Result Diagrams: 08/01/18 07:50 08/01/18 07:50 Laboratory Results: Laboratory Results - last 24 hr 07/31/18 07/31/18 07/31/18 13:31 13:31 15:00 WBC RBC Hgb Hct MCV MCH MCHC RDW Plt Count MPV Neut % (Auto) Lymph % (Auto) [place] % (Auto) Eos % (Auto) Baso % (Auto) Neut # (Auto) Lymph # (Auto) [place] # (Auto) Eos # (Auto) Baso # (Auto) WBC Differential Differential Comment PT INR APTT 277.5 H* 173.9 H* D Sodium Potassium Chloride Carbon Dioxide Anion Gap BUN Creatinine Estimated GFR Random Glucose Calcium Total Bilirubin AST ALT Alkaline Phosphatase Total Creatine Kinase 66 Troponin I 0.04 Total Protein Albumin 07/31/18 07/31/1807/31/18 17:15 23:50 23:50 WBC RBC Hgb Hct MCV MCH MCHC RDW Plt Count MPV Neut % (Auto) Lymph % (Auto) [place] % (Auto) Eos % (Auto) Baso % (Auto) Neut # (Auto) Lymph # (Auto) [place] # (Auto) Eos # (Auto) Baso # (Auto) WBC Differential Differential Comment PT 13.6 H INR 1.3 APTT 70.6 H D 57.5 H Sodium Potassium Chloride Carbon Dioxide Anion Gap BUN Creatinine Estimated GFR Random Glucose Calcium Total Bilirubin AST ALT Alkaline Phosphatase Total Creatine Kinase Troponin I Total Protein Albumin 08/01/18 08/01/18 08/01/18 07:50 07:50 07:50 WBC 7.4 RBC 4.41 Hgb 14.7 Hct 44.0 MCV 99.8 MCH 33.3 MCHC 33.4 RDW 17.0 Plt Count 119 L MPV 9.1 Neut % (Auto) 64.3 Lymph % (Auto) 22.3 [place] % (Auto) 9.8 H Eos % (Auto) 2.9 Baso % (Auto) 0.7 Neut # (Auto) 4.8 Lymph # (Auto) 1.7 [place] # (Auto) 0.7 Eos # (Auto) 0.2 Baso # (Auto) 0.1 WBC Differential . Differential Comment Auto diff final PT INR APTT 120.2 H* D Sodium 139 Potassium 4.1 D Chloride 99 Carbon Dioxide 31.0 Anion Gap 9 BUN 27 H Creatinine 1.24 H Estimated GFR 42 L Random Glucose 111 H Calcium 8.0 L Total Bilirubin 0.6 AST 30 ALT 47 Alkaline Phosphatase 123 H Total Creatine Kinase Troponin I Total Protein 5.6 L D Albumin 2.6 L D 08/01/18 10:55 WBC RBC Hgb Hct MCV MCH MCHC RDW Plt Count MPV Neut % (Auto) Lymph % (Auto) [place] % (Auto) Eos % (Auto) Baso % (Auto) Neut # (Auto) Lymph # (Auto) [place] # (Auto) Eos # (Auto) Baso # (Auto) WBC Differential Differential Comment PT INR APTT 83.2 H D Sodium Potassium Chloride Carbon Dioxide Anion Gap BUN Creatinine Estimated GFR Random Glucose Calcium Total Bilirubin AST ALT Alkaline Phosphatase Total Creatine Kinase Troponin I Total Protein Albumin Medications: Active Medications Generic Name Dose Route Start Last Admin Trade Name Freq PRN Reason Stop Dose Admin Al Hydroxide/Mg Hydroxide 30 ml 07/31/18 02:29 07/31/18 21:53 Milk Of Mojgan Liaileen PO 30 ml Q12H PRN Administration Mild Constipation Furosemide 40 mg 07/31/18 09:00 08/01/18 08:42 Lasix Inj IV.PUSH 40 mg BID@0900,1800 ABDELRAHMAN Administration Heparin Sodium/Dextrose 25,000 unit in 250 mls @ 0 mls/hr 07/31/18 00:14 18:08 Heparin/D5w 25,000 U/250 Ml IV.CONT 1,400 units/hr TITRATE PRN 14 mls/hr Per Protocol Administration Protocol Per Protocol Senna/Docusate Sodium 1 tab 07/31/18 09:00 08/01/18 08:49 Sandy-Colace PO 1 tab BID ABDELRAHMAN Administration Sodium Chloride 2 ml 07/31/18 09:00 08/01/18 08:42 Ns Flush IV.FLUSH 2 ml BID ABDELRAHMAN Administration Objective Remarks: GENERAL: overweight lady in no distress SKIN: Warm and dry. HEAD: Normocephalic. LYMPHATIC: No adenopathy. RESPIRATORY: No accessory muscle use. GASTROINTESTINAL: Abdomen soft, non-tender, nondistended. EXTREMITIES: No cyanosis MUSCULOSKELETAL: Adequate muscle tone. NEUROLOGICAL: No obvious focal deficit. Awake, alert, and oriented x3. PSYCHIATRIC: Appropriate mood and affect; insight and judgment normal. Assessment/Plan - Plan 1. VTE: pulmonary embolism and DVT. Currently on heparin gtt. continue to monitor PTT to ensure therapeutic levels. She will need to be on indefinite care home anticoagulation. Long discussion with patient. She reports that she prefers natural supplements and is leery of Western medicine. Discussed risks and benefits of anticoagulation and discussed that patient would be at high risk of recurrent VTE. 2. TCP: uncertain of baseline. 110K on admission. Will check vitamin B12 and folate. Possibly some component of liver disease/hypersplenism contributing.
[2018-08-01 13:57] LABS: Vitamin B12 1303 pg/mL (193-986)
[2018-08-01] MEDS ORDERED: Dextrose 50% in Water 50 ML Vial IV.PUSH PRN (14:15)
--- NOTE | 2018-08-01 15:19 | ECG ---
Date Performed: 07/31/2018 Time Performed: 11:18:20 PTAGE: 77 years EKG: SINUS TACHYCARDIA WITH PVC's and couplets of PVC's Generalized low volatge Kersey is rightwar d Anterolateral Myocardial infarction of undetermined age PREVIOUS TRACING : 07/30/2018 22.15 Compared to previous tracing,the couplets of PVC's ar e new. The R-forces in V5 and V6 are no longer present. This may be due to some change in lead placem ent. DOCTOR: Spencer Reed Interpretating Date/Time 08/01/2018 15:18:37
--- NOTE | 2018-08-01 15:39 | MB ---
cc: Gilmar Cesar MD DATE: 08/01/2018 REASON FOR CONSULTATION: Cardiomyopathy. HISTORY OF PRESENT ILLNESS: The patient is a 77-year-old woman who next door neighbor brought her to the hospital due to generalized weakness and questionable syncope. The patient herself is very vague and somewhat agitated, so it is difficult to get any pertinent history. She does state that she has had some worsening shortness of breath but keeps fixating on her recent flu shot as well as potential mold in her apartment. The patient herself denies an actual syncopal episode but just says she fell down. Currently, the patient seems comfortable but again is agitated and upset at having to talk to "so many doctors." PAST MEDICAL HISTORY: Coronary artery disease, status post prior SD and CVA. CURRENT MEDICATIONS: 1. Aspirin 81 mg daily. 2. Coreg 3.125 mg b.i.d. 3. Lasix 40 mg IV b.i.d. 4. Prinivil 5 mg daily. ALLERGIES: SULFA. PHYSICAL EXAMINATION: VITAL SIGNS: Afebrile, pulse 82, respiratory rate 17, BP 127/81, saturating 93%. GENERAL: Elderly, disheveled-appearing woman, in no distress. NECK: No JVD. LUNGS: Decreased breath sounds in all barillas. CARDIOVASCULAR: Regular rate and rhythm. No significant murmurs appreciated. ABDOMEN: Benign. EXTREMITIES: Trace edema bilaterally. LABORATORY DATA: White count 7.4, hematocrit 44.0, platelets 119. Sodium 139, potassium 4.1, chloride 99, bicarbonate 31.0, BUN 27, creatinine 1.24, glucose 111. BNP is 2019. Troponins negative. EKG shows sinus rhythm with diffuse T-wave changes and poor R-wave progression. Echocardiogram shows ejection fraction of less than 20% with severe anterior, anterolateral, apical, and inferoapical akinesis with moderate mitral regurgitation. A probable left ventricular apical thrombus is present. CTA showed a large nonocclusive chronic pulmonary embolus versus a mass. Venous ultrasound of the legs showed extensive bilateral DVTs. ASSESSMENT AND PLAN: 1. Cardiomyopathy. The patient has newly discovered likely ischemic cardiomyopathy from her prior coronary artery disease. An apical thrombus is also seen. She will start anticoagulation, is on an KEILY inhibitor and carvedilol. I did attempt to discuss workup including stress testing and possible LifeVest with eventual defibrillator placement if her function does not improve. The patient is somewhat agitated and really unable to follow well with what I am saying. She does not seem interested in even taking medications let alone more advanced procedures. For now, I will leave her on these medications, and if she agrees to a LifeVest before discharge, it can be arranged. She has had some short nonsustained ventricular tachycardia seen on telemetry. 2. Apical thrombus. The patient is already anticoagulated due to her extensive thrombus in her lungs and legs. Eventually, this could be changed to warfarin or DVT/PE-dose Eliquis. 3. Compliance is going to be challenging with this patient who is already telling me she does not really believe in medications. Further recommendations based on her clinical course, but for now she is on appropriate therapy. Thank you again for the opportunity to participate in this patient's care. MD CHAPARRO Barrientos/rancho , 02:56 PM , 03:05 PM
[2018-08-01] MEDS: Lisinopril 5 MG Tablet PO SCH (16:16)
[2018-08-01] MEDS: guaiFENesin 600 MG ER Tablet PO SCH ×2 (17:52→21:52)
[2018-08-01] MEDS: Insulin NovoLOG Aspart Correctional Sugar Inj SQ SCH ×2 (17:59→21:52)
[2018-08-02 06:34] LABS: Baso # (Auto) 0.1 th/mm3 (0.0-0.2); Baso % (Auto) 0.7 % (0.0-2.0); Eos # (Auto) 0.1 th/mm3 (0.0-0.4); Lymph % (Auto) 15.1 % (9.0-44.0); Mean Corpuscular HGB Conc 33.3 % (32.0-36.0); Mean Corpuscular Volume 99.1 fL (80.0-100.0); Mean Platelet Volume 8.9 fL (7.0-11.0); Mono # (Auto) 0.5 th/mm3 (0.0-0.9); Neut # (Auto) 5.2 th/mm3 (1.8-7.7); Neut % (Auto) 75.2 % (16.0-70.0); Platelet Count 127 th/mm3 (150-450); Red Blood Count 4.24 mil/mm3 (4.00-5.30); Red Cell Distribution Width 16.7 % (11.6-17.2); White Blood Count 6.9 th/mm3 (4.0-11.0)
[2018-08-02 07:03] LABS: Alanine Aminotransferase 35 U/L (10-53); Albumin 2.3 g/dL (3.4-5.0); Anion Gap 7 meq/L (5-15); Aspartate Aminotransferase 22 U/L (15-37); Blood Urea Nitrogen 25 mg/dL (7-18); Chloride 98 meq/L (98-107); Cholesterol 138 mg/dL (120-200); Glomerular Filtration Rate 56 mL/min (>89); Glucose,Random 111 mg/dL (74-106); Magnesium 1.3 mg/dL (1.5-2.5); Potassium 3.4 meq/L (3.5-5.1); Sodium 139 meq/L (136-145); Triglycerides 68 mg/dL (42-150)
[2018-08-02 07:04] LABS: Alkaline Phosphatase 103 U/L (45-117); HDL Cholesterol 39.4 mg/dL (40.0-60.0); LDL Cholesterol,Calculated 85 mg/dL (0-99); Total Protein 5.3 g/dL (6.4-8.2)
[2018-08-02] MEDS: Insulin NovoLOG Aspart Correctional Sugar Inj SQ SCH ×4 (08:43→21:34)
--- NOTE | 2018-08-02 09:11 | P.PN ---
Subjective Interval history: Follow up for PE/DVT, CHF, generalized weakness, inability to care for self. The patient reports feeling slightly better today. She reports her chest congestion has improved. She believes her hands and legs swelling is improving. Denies any chest pain. Still endorses some shortness of breath, worse with exertion. Friend/neighbor at bedside. Physical Exam Vital signs: Vital Signs 08/01/18 09:54 08/01/18 12:00 08/01/18 16:00 Temperature 98.1 F 97.5 F L Pulse Rate 82 84 Respiratory Rate 17 17 Blood Pressure 127/81 117/76 Pulse Oximetry 97 93 L 96 08/01/18 19:55 08/01/18 20:23 08/01/18 21:40 Temperature 98.5 F Pulse Rate 82 86 Respiratory Rate 16 Blood Pressure 129/67 Pulse Oximetry 97 94 L 08/02/18 00:00 08/02/18 01:05 08/02/18 04:00 Temperature 98.4 F 97.2 F L Pulse Rate 79 69 Respiratory Rate 17 19 Blood Pressure 95/50 L 93/55 L Pulse Oximetry 94 L 94 L 93 L 08/02/18 08:00 Temperature 98.2 F Pulse Rate 66 Respiratory Rate 19 Blood Pressure 101/60 Pulse Oximetry 93 L Intake & Output 08/01/18 08/02/18 08/02/18 18:59 06:59 18:59 Intake Total 250 / 250 Output Total 1425 / 1425 Balance 250 / 250 -1425 / -1425 Weight 106 kg Intake: IV 250 / 250 Heparin/D5W 25,000 U/250 mL 25, 250 / 250 000 unit In 250 ml @ Per Protocol IV.CONT TITRATE PRN Rx #:[id number] Output: Urine Amount (Catheter) 1425 / 1425 Indwelling Urethral Catheter 1425 / 1425 Other: Date of Last Bowel Movement 07/30/18 Narrative: GENERAL: Elderly obese female patient in NAD. Slightly unkempt appearing. SKIN: Warm and dry. No rash. HEENT: Normocephalic. Atraumatic. Pupils equal and round. Mucous membranes pink and moist. Poor dentition. NECK: Supple. Trachea midline. CARDIOVASCULAR: Regular rate and rhythm. No murmur appreciated. RESPIRATORY: No accessory muscle use. Clear to auscultation. Breath sounds equal bilaterally. GASTROINTESTINAL: Abdomen soft, non-tender, nondistended. Normoactive bowel sounds x4. MUSCULOSKELETAL: No obvious deformities. BLE chronic venous stasis changes with nonpitting edema. NEUROLOGICAL: Awake and alert. No obvious cranial nerve deficits. Motor grossly within normal limits. Moving all extremities spontaneously. Normal speech. - Urinary Catheter Management Indwelling Urethral Catheter Cath placed during this visit: yes Reason for continuing: Acute urinary retention Insertion date: 07/31/18 Insertion time: 01:07 Results - Labs CBC & Chem 7: 08/02/18 06:18 08/02/18 06:18 Laboratory Results - last 24 hr 08/01/18 08/01/18 08/01/18 07:50 10:55 16:48 WBC RBC Hgb Hct MCV MCH MCHC RDW Plt Count MPV Neut % (Auto) Lymph % (Auto) [place] % (Auto) Eos % (Auto) Baso % (Auto) Neut # (Auto) Lymph # (Auto) [place] # (Auto) Eos # (Auto) Baso # (Auto) WBC Differential Differential Comment APTT 83.2 H D 52.5 H D Sodium Potassium Chloride Carbon Dioxide Anion Gap BUN Creatinine Estimated GFR POC Glucose Random Glucose Calcium Magnesium Total Bilirubin AST ALT Alkaline Phosphatase Total Protein Albumin Triglycerides Cholesterol LDL Cholesterol, Calc HDL Cholesterol Cholesterol/HDL Ratio Vitamin B12 1303 H Folate Greater than 20.0 H 08/01/18 08/01/18 08/01/18 17:54 21:47 22:46 WBC RBC Hgb Hct MCV MCH MCHC RDW Plt Count MPV Neut % (Auto) Lymph % (Auto) [place] % (Auto) Eos % (Auto) Baso % (Auto) Neut # (Auto) Lymph # (Auto) [place] # (Auto) Eos # (Auto) Baso # (Auto) WBC Differential Differential Comment APTT 32.4 H D Sodium Potassium Chloride Carbon Dioxide Anion Gap BUN Creatinine Estimated GFR POC Glucose 115 H 123 H Random Glucose Calcium Magnesium Total Bilirubin AST ALT Alkaline Phosphatase Total Protein Albumin Triglycerides Cholesterol LDL Cholesterol, Calc HDL Cholesterol Cholesterol/HDL Ratio Vitamin B12 Folate 08/02/18 08/02/18 08/02/18 06:18 06:18 06:18 WBC 6.9 RBC 4.24 Hgb 14.0 Hct 42.0 MCV 99.1 MCH 33.0 MCHC 33.3 RDW 16.7 Plt Count 127 L MPV 8.9 Neut % (Auto) 75.2 H Lymph % (Auto) 15.1 [place] % (Auto) 7.0 Eos % (Auto) 2.0 Baso % (Auto) 0.7 Neut # (Auto) 5.2 Lymph # (Auto) 1.0 [place] # (Auto) 0.5 Eos # (Auto) 0.1 Baso # (Auto) 0.1 WBC Differential . Differential Comment Auto diff final APTT 44.0 H D Sodium 139 Potassium 3.4 L Chloride 98 Carbon Dioxide 34.0 H Anion Gap 7 BUN 25 H Creatinine 0.97 Estimated GFR 56 L POC Glucose Random Glucose 111 H Calcium 8.0 L Magnesium 1.3 L Total Bilirubin 0.6 AST 22 ALT 35 Alkaline Phosphatase 103 Total Protein 5.3 L Albumin 2.3 L Triglycerides 68 Cholesterol 138 LDL Cholesterol, Calc 85 HDL Cholesterol 39.4 L Cholesterol/HDL Ratio 3.50 Vitamin B12 Folate 08/02/18 07:37 WBC RBC Hgb Hct MCV MCH MCHC RDW Plt Count MPV Neut % (Auto) Lymph % (Auto) [place] % (Auto) Eos % (Auto) Baso % (Auto) Neut # (Auto) Lymph # (Auto) [place] # (Auto) Eos # (Auto) Baso # (Auto) WBC Differential Differential Comment APTT Sodium Potassium Chloride Carbon Dioxide Anion Gap BUN Creatinine Estimated GFR POC Glucose 106 Random Glucose Calcium Magnesium Total Bilirubin AST ALT Alkaline Phosphatase Total Protein Albumin Triglycerides Cholesterol LDL Cholesterol, Calc HDL Cholesterol Cholesterol/HDL Ratio Vitamin B12 Folate - Imaging Chest CTA 07/30/18 22:03 CONCLUSION: 1. Masslike area in the right hilum with associated scalloping of the right main pulmonary artery. Differential includes large, nonocclusive chronic pulmonary embolus and a true mass. Would tend to favor the former. 2. Small, age indeterminate pulmonary emboli are seen of the right lower lobe pulmonary artery. 3. Small moderate right and small left pleural effusions. There is mild thickening of the interlobular septa and mild groundglass opacities of both lungs suggesting a degree of pulmonary edema. Heart is enlarged. Coronary artery calcification. Chest X-Ray 07/30/18 22:03 CONCLUSION: Probable right apical scarring or atelectasis. Moderate cardiomegaly. Venous Doppler Study 07/31/18 00:00 CONCLUSION: 1. Extensive bilateral deep venous thrombosis. Assessment and Plan - Plan 77-year-old female patient presented with shortness of breath, generalized weakness, and near syncopal episode while at home. Pulmonary Embolism, Bilateral DVT, Apical Thrombus: acute. -CT-PA on 07/30 showed masslike area in the right hilum with associated scalloping of the right main pulmonary artery. Differential includes large, nonocclusive chronic pulmonary embolus and a true mass. Would tend to favor the former. Small, age indeterminate pulmonary emboli are seen of the right lower lobe pulmonary artery. Small moderate right and small left pleural effusions. There is mild thickening of the interlobular septa and mild groundglass opacities of both lungs suggesting a degree of pulmonary edema. Heart is enlarged. Coronary artery calcification. -BLE Doppler U/S with extensive bilateral DVT -apical thrombus seen on echocardiogram -O2 as needed -Continue on IV Heparin drip -Hematology consulted, appreciate recommendations, continue IV heparin drip for now -plan to transition to likely Eliquis New diagnosis of Systolic CHF/Cardiomyopathy with Acute Exacerbation/Pulmonary Edema: acute -pulmonary edema seen on chest CT as above. -BNP 2019. -Echo 07/31 shows severely reduced systolic function with EF < 20%, probable left ventricular apical thrombus; severe akinesis, moderate MR -started on IV Lasix 40mg po bid -start on low dose coreg and lisinopril with hold parameters -lipid panel with LDL 85 (goal < 70), start low dose statin -HgbA1c pending -troponins flat at 0.05, 0.04, 0.04 -monitor on telemetry -fluid restrictions -consult cardiology, appreciate assistance Renal Insufficiency: unknown if acute or chronic -continue to monitor -BMP currently stable with Creatinine around 1.2, possibly CKD stage III BLE Chronic Venous Changes and Edema -suspect component of lymphedema/venous stasis in combination with DVTs -consulted wound care, recommended shaving cream to bilateral lower legs and apply warm moist towel loosely for 5 minutes rinse and dry gently. Apply lotion , do not massage legs, and leave open to air. -continue diuresis as above Elevated Blood Glucose: acute -checking HgbA1c, pending -monitor Accu-checks and cover with low dose SSI for now Hx of CVA: patient reports hx of stroke many years ago -continue aspirin -started on statin Hypokalemia/Hypomagnesemia: acute. Mag 1.3. Likely secondary to diuresis -Give IV Mag sulfate x2G today -start on po kcl and mag ox -recheck labs in am On IV heparin drip
[2018-08-02] MEDS: guaiFENesin 600 MG ER Tablet PO SCH ×2 (09:23→21:33)
[2018-08-02] MEDS: Aspirin 325 MG Tablet PO SCH (09:24)
[2018-08-02] MEDS: Senna/Docusate Sodium 8.6/50 MG Tablet PO SCH ×2 (09:24→21:33)
[2018-08-02] MEDS: Sodium Chloride 0.9% 2 ML Flush BID IV.FLUSH SCH ×2 (09:24→21:34)
[2018-08-02] MEDS: Lisinopril 5 MG Tablet PO SCH (09:24)
[2018-08-02] MEDS: Mag Sulf 1 gm/100 ml Premix 100 ML IV.SIG SCH ×2 (11:51→13:33)
[2018-08-02 12:14] LABS: Hemoglobin A1c 6.8 % (4.3-6.0)
[2018-08-02] MEDS: Heparin Drip 25,000 UNIT/250 ML BAG IV.CONT PRN (15:38)
[2018-08-02] MEDS: Magnesium Oxide 400 MG Tablet PO SCH (21:33)
[2018-08-03 06:06] LABS: Baso % (Auto) 0.6 % (0.0-2.0); Eos # (Auto) 0.2 th/mm3 (0.0-0.4); Eos % (Auto) 2.7 % (0.0-4.0); Hematocrit 46.4 % (35.0-46.0); Hemoglobin 15.1 gm/dL (11.6-15.3); Lymph # (Auto) 1.2 th/mm3 (1.0-4.8); Lymph % (Auto) 16.7 % (9.0-44.0); Mean Corpuscular HGB Conc 32.6 % (32.0-36.0); Mean Corpuscular Hemoglobin 32.6 pg (27.0-34.0); Mean Corpuscular Volume 99.9 fL (80.0-100.0); Mean Platelet Volume 9.3 fL (7.0-11.0); Mono # (Auto) 0.6 th/mm3 (0.0-0.9); Mono % (Auto) 8.7 % (0.0-8.0); Neut # (Auto) 5.2 th/mm3 (1.8-7.7); Neut % (Auto) 71.3 % (16.0-70.0); Platelet Count 147 th/mm3 (150-450); Red Blood Count 4.64 mil/mm3 (4.00-5.30); Red Cell Distribution Width 16.7 % (11.6-17.2); White Blood Count 7.3 th/mm3 (4.0-11.0)
[2018-08-03 06:27] LABS: Calcium 8.2 mg/dL (8.5-10.1); Carbon Dioxide 35.1 meq/L (21.0-32.0); Magnesium 1.9 mg/dL (1.5-2.5); Potassium 3.8 meq/L (3.5-5.1)
--- NOTE | 2018-08-03 08:53 | P.PNCA ---
Subjective Interval history: Pt says she feels well, no complaints, she does get intermittently agitated when I discuss her cardiac issues. Medications and Allergies Active Medications: Active Medications Acetaminophen (Tylenol) 650 mg PO Q4H PRN PRN Reason: Temp > 100.4 Al Hydroxide/Mg Hydroxide (Milk Of Magnesia Liq) 30 ml PO Q12H PRN PRN Reason: Mild Constipation Last Admin: 08/02/18 11:52 Dose: 30 ml Aspirin (Aspirin) 325 mg PO DAILY [facility] Last Admin: 08/02/18 09:24 Dose: 325 mg Bisacodyl (Dulcolax Supp) 10 mg RECTAL DAILY PRN PRN Reason: SEVERE CONSITIPATION Carvedilol (Coreg) 3.125 mg PO BID [facility] Last Admin: 08/02/18 21:33 Dose: Not Given Dextrose (D50w Vial) 50 ml IV.PUSH UNSCH PRN PRN Reason: PER HYPOGLYCEMIA PROTOCOL Furosemide (Lasix Inj) 40 mg IV.PUSH BID@0900,1800 [facility] Last Admin: 08/02/18 17:11 Dose: Not Given Glucagon (Glucagon Inj) 1 mg OTHER PRN PRN PRN Reason: for Hypoglycemia Protocol Guaifenesin (Mucinex Er) 600 mg PO BID [facility] Last Admin: 08/02/18 21:33 Dose: 600 mg Heparin Sodium/Dextrose (Heparin/D5w 25,000 U/250 Ml) 25,000 unit in 250 mls @ 0 mls/hr IV.CONT TITRATE PRN; Protocol PRN Reason: Per Protocol Last Titration: 08/03/18 06:00 Dose: 1,000 units/hr, 10 mls/hr Insulin Aspart (Novolog Insulin Correctional Sugar Inj) 0 unit SQ ACHS [facility]; Protocol Last Admin: 08/02/18 21:34 Dose: Not Given Lactulose (Lactulose Liq) 30 ml PO DAILY PRN PRN Reason: SEVERE CONSITIPATION Lisinopril (Prinivil) 5 mg PO DAILY [facility] Last Admin: 08/02/18 09:24 Dose: 5 mg Magnesium Oxide (Mag-Ox) 400 mg PO BID [facility] Last Admin: 08/02/18 21:33 Dose: 400 mg Ondansetron HCl (Zofran Inj) 4 mg IV.PUSH Q6H PRN PRN Reason: NAUSEA OR VOMITING Potassium Chloride (K-Dur) 20 meq PO BID [facility] Last Admin: 08/02/18 21:33 Dose: 20 meq Pravastatin Sodium (Pravachol) 20 mg PO HS [facility] Last Admin: 08/02/18 21:34 Dose: Not Given Senna/Docusate Sodium (Sandy-Colace) 1 tab PO BID [facility] Last Admin: 08/02/18 21:33 Dose: 1 tab Sennosides (Senokot) 17.2 mg PO Q12H PRN PRN Reason: Moderate Constipation Sodium Chloride (Ns Flush) 2 ml IV.FLUSH BID [facility] Last Admin: 08/02/18 21:34 Dose: Not Given Sodium Chloride (Ns Flush) 2 ml IV.FLUSH PRN PRN PRN Reason: FLUSH AFTER USING IV ACCESS Vitamin D (Vitamin D3) 2,000 unit PO DAILY [facility] Last Admin: 08/02/18 09:24 Dose: 2,000 unit Allergies Allergy/AdvReac Type Severity Reaction Status Date / Time Sulfa (Sulfonamide Allergy Severe unk Verified 07/31/18 04:35 Antibiotics) Home Medications Medication Instructions Recorded Confirmed Type aspirin 325 mg PO DAILY 07/31/18 07/31/18 History cholecalciferol (vitamin D3) 2,000 unit PO DAILY 07/31/18 07/31/18 History [Vitamin D3] coenzyme Q10 [CoQ-10] See Label Instructions .ROUTE 07/31/18 07/31/18 History .COMPLEX Physical Exam Vital signs: Vital Signs 08/02/18 12:00 08/02/18 16:00 08/02/18 19:48 Temperature 98.1 F 97.6 F 97.6 F Pulse Rate 67 64 77 Respiratory Rate 17 17 17 Blood Pressure 83/51 L 81/48 L 81/48 L Pulse Oximetry 92 L 92 L 92 L 08/02/18 20:00 08/02/18 21:15 08/02/18 21:26 Temperature Pulse Rate 79 Respiratory Rate Blood Pressure 103/58 L Pulse Oximetry 95 95 08/03/18 00:00 08/03/18 04:00 Temperature 97.8 F 97.4 F L Pulse Rate 71 78 Respiratory Rate 18 18 Blood Pressure 116/58 L 119/65 Pulse Oximetry 96 93 L Intake & Output 08/02/18 08/03/18 08/03/18 18:59 06:59 18:59 Intake Total 450 / 450 Output Total 1000 / 1000 350 / 350 Balance -550 / -550 -350 / -350 Weight 106 kg Intake: IV 450 / 450 Heparin/D5W 25,000 U/250 mL 25, 250 / 250 000 unit In 250 ml @ Per Protocol IV.CONT TITRATE PRN Rx #:[id number] Magnesium Sulfate 1 gm/D5W 100 200 / 200 ml Premix 100 ML @ 100 mls/hr IV.SIG Q1H [facility] Rx#:[id number] Output: Urine Amount (Catheter) 1000 / 1000 350 / 350 Indwelling Urethral Catheter 1000 / 1000 350 / 350 Other: Date of Last Bowel Movement 08/02/18 - Constitutional agitated Comments: mild agitation during discussion - Routine HEENT Exam Head: Present: normocephalic - Routine Neck Exam Present: supple. Absent: JVD - Routine Respiratory Exam Present: CTA bilaterally - Routine Cardiovascular Exam Present: RRR - Routine Extremities Exam Absent: edema - Urinary Catheter Management Indwelling Urethral Catheter Cath placed during this visit: yes Reason for continuing: Acute urinary retention Insertion date: 07/31/18 Insertion time: 01:07 Results 08/03/18 05:07 08/03/18 05:07 Cardiac Enzymes 08/01/18 08/02/18 Range/Units 07:50 06:18 AST 30 22 (15-37) U/L Coagulation 08/01/18 08/01/18 08/01/18 Range/Units 10:55 16:48 22:46 APTT 83.2 H D 52.5 H D 32.4 H D (23.4-31.7) sec 08/02/18 08/02/18 08/02/18 Range/Units 06:18 12:02 13:24 APTT 44.0 H D Greater than 277.5 H* 41.8 H D (23.4-31.7) sec 08/02/18 08/03/18 Range/Units 19:07 05:07 APTT 43.2 H 44.1 H (23.4-31.7) sec Lipids 08/02/18 Range/Units 06:18 Triglycerides 68 (42-150) mg/dL Cholesterol 138 (120-200) mg/dL HDL Cholesterol 39.4 L (40.0-60.0) mg/dL Cholesterol/HDL Ratio 3.50 Ratio CBC 08/02/18 08/03/18 Range/Units 06:18 05:07 WBC 6.9 7.3 (4.0-11.0) th/mm3 RBC 4.24 4.64 (4.00-5.30) mil/mm3 Hgb 14.0 15.1 (11.6-15.3) gm/dL Hct 42.0 46.4 H (35.0-46.0) % Plt Count 127 L 147 L (150-450) th/mm3 Neut # (Auto) 5.2 5.2 (1.8-7.7) th/mm3 Lymph # (Auto) 1.0 1.2 (1.0-4.8) th/mm3 [place] # (Auto) 0.5 0.6 (0.0-0.9) th/mm3 Eos # (Auto) 0.1 0.2 (0.0-0.4) th/mm3 Baso # (Auto) 0.1 0.0 (0.0-0.2) th/mm3 Comprehensive Metabolic Panel 08/01/18 08/02/18 08/03/18 Range/Units 07:50 06:18 05:07 Sodium 139 139 139 (136-145) meq/L Potassium 4.1 D 3.4 L 3.8 (3.5-5.1) meq/L Chloride 99 98 96 L (98-107) meq/L Carbon Dioxide 31.0 34.0 H 35.1 H (21.0-32.0) meq/L BUN 27 H 25 H 28 H (7-18) mg/dL Creatinine 1.24 H 0.97 1.00 (0.50-1.00) mg/dL Calcium 8.0 L 8.0 L 8.2 L (8.5-10.1) mg/dL AST 30 22 (15-37) U/L ALT 47 35 (10-53) U/L Alkaline Phosphatase 103 (45-117) U/L Total Protein 5.3 L (6.4-8.2) g/dL Albumin 2.6 L D 2.3 L (3.4-5.0) g/dL Intake and Output 08/02/18 08/03/18 08/03/18 22:59 06:59 14:59 Intake Total 250 / 250 Output Total 1000 / 1000 350 / 350 Balance -750 / -750 -350 / -350 Intake: IV 250 / 250 Heparin/D5W 25,000 U/250 mL 25, 250 / 250 000 unit In 250 ml @ Per Protocol IV.CONT TITRATE PRN Rx #:[id number] Output: Urine Amount (Catheter) 1000 / 1000 350 / 350 Indwelling Urethral Catheter 1000 / 1000 350 / 350 Other: Weight 106 kg Assessment and Plan - Assessment (1) Ischemic cardiomyopathy Code(s): I25.5 - Ischemic cardiomyopathy Status: Acute Plan: on angely/bb; tried to discuss workup including stress/cath and treatments including life-vest; she get agitated, says I've "looked at her heart enough" and it's now "between her and the good lord." Thus will consider her for medical mgt only. If she changes her mind about any of the above, pls let me know (2) CHF (congestive heart failure) Code(s): I50.9 - Heart failure, unspecified Status: Acute Plan: seems compensated, cr. bumped up slightly, will change to oral lasix. (3) Pulmonary emboli Code(s): I26.99 - Other pulmonary embolism without acute cor pulmonale Status : Acute Plan: on IV heaprain, can be changed to warfarin/noac, per primary team. - Plan I will be available as needed, if she changes her mind and agrees to a more aggressive w/u pls call. (2) CHF (congestive heart failure) Qualifiers: Heart failure type: systolic Heart failure chronicity: acute on chronic Qualified Code(s): I50.23 - Acute on chronic systolic (congestive) heart failure
[2018-08-03] MEDS: Insulin NovoLOG Aspart Correctional Sugar Inj SQ SCH ×4 (09:06→23:07)
[2018-08-03] MEDS: Senna/Docusate Sodium 8.6/50 MG Tablet PO SCH ×2 (09:07→20:36)
[2018-08-03] MEDS: guaiFENesin 600 MG ER Tablet PO SCH ×2 (09:07→20:36)
[2018-08-03] MEDS: Magnesium Oxide 400 MG Tablet PO SCH ×2 (09:08→20:36)
[2018-08-03] MEDS: Aspirin 325 MG Tablet PO SCH (09:08)
[2018-08-03] MEDS: Lisinopril 5 MG Tablet PO SCH (09:08)
[2018-08-03] MEDS: Sodium Chloride 0.9% 2 ML Flush BID IV.FLUSH SCH ×2 (09:08→23:06)
[2018-08-03] MEDS: Furosemide 40 MG Tablet PO SCH (09:10)
--- NOTE | 2018-08-03 13:21 | P.PNIM ---
Subjective Interval history: cc: follow up PE/DVT, ICM, generalized weakness Patient reports feeling significantly better. Shortness of breath is improved and she is almost back to her baseline. Patient denies chest pain, orthopnea or palpitations. Patient is requesting to be seen by media relations specialist Dr Milan. She states she previously followed up with MD and would like him to be involved in her care. Physical Exam Vital signs: Last Vital Signs Temp 97.1 F L 08/03/18 12:00 Pulse 77 08/03/18 12:00 Resp 18 08/03/18 12:00 BP 92/56 L 08/03/18 12:00 Pulse Ox 93 L 08/03/18 12:00 Intake & Output 08/01/18 08/02/18 08/03/18 08/04/18 06:59 06:59 06:59 06:59 Intake Total 250 / 250 250 / 250 450 / 450 Output Total 3700 / 3700 1425 / 1425 1350 / 1350 Balance -3450 / -3450 -1175 / -1175 -900 / -900 Weight 106 kg 106 kg 106 kg Narrative: GENERAL: no acute distress, unkempt appearance SKIN: Warm and dry HEAD: Normocephalic, atraumatic. PERRLA. EYES: No scleral icterus. No injection or drainage. NECK: Supple, trachea midline. No JVD or lymphadenopathy. CARDIOVASCULAR: Regular rate and rhythm without murmurs, gallops, or rubs. RESPIRATORY: Breath sounds equal bilaterally. No accessory muscle use. GASTROINTESTINAL: Abdomen soft, non-tender, nondistended. MUSCULOSKELETAL: BL LE chronic venous stasis changes, non pitting edema. Moves all extremities. Urinary Catheter Management Indwelling Urethral Catheter: Cath placed during this visit: yes Urethral indwelling: Yes Reason for continuing: Not indwelling catheter Insertion date: 07/31/18 Insertion time: 01:07 Results Labs CBC & Chem 7: 08/03/18 05:07 08/03/18 05:07 Labs: Microbiology 08/02/18 09:30 Stool Stool Occult Blood (MIKE) - Final Hemoccult negative Assessment and Plan (1) Ischemic cardiomyopathy: Code(s): I25.5 - Ischemic cardiomyopathy Status: Acute (2) CHF (congestive heart failure): Code(s): I50.9 - Heart failure, unspecified Status: Acute (3) Pulmonary emboli: Code(s): I26.99 - Other pulmonary embolism without acute cor pulmonale Status: Acute Plan Patient is a 77 year old female who presented with shortness of breath , generalized weakness and a near syncopal episode while at home. #. Pulmonary embolism and bilateral DVT, apical thrombus - reviewed 08/03/18, stable -CT-PA 07/30/18 shows masslike area in the right hilum with associated scalloping of the right main pulmonary artery. Small, age indeterminate pulmonary emboli are seen of the right lower lobe pulmonary artery. Small moderate right and small left pleural effusions. There is mild thickening of the interlobular septa and mild groundglass opacities of both lungs suggesting a degree of pulmonary edema. Heart is enlarged. Coronary artery calcification. -BLE doppler U/S with extensive bilateral DVT -apical thrombus seen on echocardiogram -continue O2 as needed -continue on IV Heparin drip -Hematology consulted, appreciate recommendations, continue IV heparin drip for now -plan to transition to likely Eliquis #. New diagnosis of Systolic CHF/Cardiomyopathy with Acute Exacerbation/ Pulmonary Edema: acute - reviewed 08/03/18, improving -pulmonary edema seen on chest CT as above. -BNP 2018 -Echo 07/31 shows severely reduced systolic function with EF < 20%, probable left ventricular apical thrombus; severe akinesis, moderate MR -started on IV Lasix 40mg po bid, now switched to 40 mg PO daily 08/03/18 per Cardiology -start on low dose coreg and lisinopril with hold parameters -lipid panel with LDL 85 (goal < 70), start low dose statin -HgbA1c pending -troponins flat at 0.05, 0.04, 0.04 -monitor on telemetry -fluid restrictions -cardiology consulted, discussed work up including stress/cath and treatments including life vest. Patient was agitated according to Cardiology note. Recommends medical mgmt. Patient requesting to be seen by media relations specialist Dr Milan. #. Renal Insufficiency: unknown if acute or chronic - reviewed 08/03/18, slightly increased today -continue to monitor -BMP currently stable with Creatinine around 1.0, possibly CKD stage III #. BLE Chronic Venous Changes and Edema - reviewed 08/03/18, stable -suspect component of lymphedema/venous stasis in combination with DVTs -consulted wound care, recommended shaving cream to bilateral lower legs and apply warm moist towel loosely for 5 minutes rinse and dry gently. Apply lotion , do not massage legs, and leave open to air. -continue diuresis as above #. Elevated Blood Glucose: acute - reviewed 08/03/18, improved -blood sugars < 150 -checking HgbA1c, pending -monitor Accu-checks and cover with low dose SSI for now #. Hx of CVA: patient reports hx of stroke many years ago - reviewed 08/03/18 -continue aspirin -started on statin #. Hypokalemia/Hypomagnesemia: acute, likely secondary to diuresis - reviewed , improved -IV Mag sulfate x2G given 08/02/19, repeat Mg 1.9 -start on po kcl and mag ox -continue to monitor labs MDM: self Code: Full GI ppx: PO intake PE/DVT: On IV heparin drip Progress Note: Quality VTE Deep Vein Thrombosis/Pulmonary Embolism Present on Admission: No _ (1) CHF (congestive heart failure) Qualifiers: Heart failure chronicity: acute on chronic Heart failure type: systolic Qualified Code(s): I50.23 - Acute on chronic systolic (congestive) heart failure (2) Pulmonary emboli Qualifiers: Acute cor pulmonale presence: Chronicity: Pulmonary embolism type:
[2018-08-03] MEDS: Heparin Drip 25,000 UNIT/250 ML BAG IV.CONT PRN (18:20)
[2018-08-04] MEDS: Insulin NovoLOG Aspart Correctional Sugar Inj SQ SCH ×4 (09:11→20:01)
[2018-08-04] MEDS: Aspirin 325 MG Tablet PO SCH (09:12)
[2018-08-04] MEDS: guaiFENesin 600 MG ER Tablet PO SCH ×3 (09:12→20:01)
[2018-08-04] MEDS: Furosemide 40 MG Tablet PO SCH (09:12)
[2018-08-04] MEDS: Senna/Docusate Sodium 8.6/50 MG Tablet PO SCH ×3 (09:12→20:02)
[2018-08-04] MEDS: Magnesium Oxide 400 MG Tablet PO SCH ×3 (09:12→20:00)
[2018-08-04] MEDS: Sodium Chloride 0.9% 2 ML Flush BID IV.FLUSH SCH ×3 (09:13→20:01)
[2018-08-04] MEDS: Lisinopril 5 MG Tablet PO SCH (09:13)
--- NOTE | 2018-08-04 10:12 | P.PNCA ---
Subjective Interval history: Denies angina, dyspnea, dizziness, palpitations. Complains of feeling "congested." Medications and Allergies Active Medications: Active Medications Acetaminophen (Tylenol) 650 mg PO Q4H PRN PRN Reason: Temp > 100.4 Al Hydroxide/Mg Hydroxide (Milk Of Magnesia Liq) 30 ml PO Q12H PRN PRN Reason: Mild Constipation Last Admin: 08/02/18 11:52 Dose: 30 ml Aspirin (Aspirin) 325 mg PO DAILY [facility] Last Admin: 08/04/18 09:12 Dose: 325 mg Bisacodyl (Dulcolax Supp) 10 mg RECTAL DAILY PRN PRN Reason: SEVERE CONSITIPATION Carvedilol (Coreg) 3.125 mg PO BID [facility] Last Admin: 08/04/18 09:12 Dose: Not Given Dextrose (D50w Vial) 50 ml IV.PUSH UNSCH PRN PRN Reason: PER HYPOGLYCEMIA PROTOCOL Furosemide (Lasix) 40 mg PO DAILY [facility] Last Admin: 08/04/18 09:12 Dose: 40 mg Glucagon (Glucagon Inj) 1 mg OTHER PRN PRN PRN Reason: for Hypoglycemia Protocol Guaifenesin (Mucinex Er) 600 mg PO BID [facility] Last Admin: 08/04/18 09:12 Dose: 600 mg Heparin Sodium/Dextrose (Heparin/D5w 25,000 U/250 Ml) 25,000 unit in 250 mls @ 0 mls/hr IV.CONT TITRATE PRN; Protocol PRN Reason: Per Protocol Last Titration: 08/04/18 07:16 Dose: 1,100 units/hr, 11 mls/hr Insulin Aspart (Novolog Insulin Correctional Sugar Inj) 0 unit SQ ACHS [facility]; Protocol Last Admin: 08/04/18 09:11 Dose: Not Given Lactulose (Lactulose Liq) 30 ml PO DAILY PRN PRN Reason: SEVERE CONSITIPATION Lisinopril (Prinivil) 5 mg PO DAILY [facility] Last Admin: 08/04/18 09:13 Dose: Not Given Magnesium Oxide (Mag-Ox) 400 mg PO BID [facility] Last Admin: 08/04/18 09:12 Dose: 400 mg Ondansetron HCl (Zofran Inj) 4 mg IV.PUSH Q6H PRN PRN Reason: NAUSEA OR VOMITING Potassium Chloride (K-Dur) 20 meq PO BID [facility] Last Admin: 08/04/18 09:11 Dose: 20 meq Pravastatin Sodium (Pravachol) 20 mg PO HS [facility] Last Admin: 08/03/18 20:36 Dose: 20 mg Senna/Docusate Sodium (Sandy-Colace) 1 tab PO BID [facility] Last Admin: 08/04/18 09:12 Dose: 1 tab Sennosides (Senokot) 17.2 mg PO Q12H PRN PRN Reason: Moderate Constipation Sodium Chloride (Ns Flush) 2 ml IV.FLUSH BID [facility] Last Admin: 08/04/18 09:13 Dose: 2 ml Sodium Chloride (Ns Flush) 2 ml IV.FLUSH PRN PRN PRN Reason: FLUSH AFTER USING IV ACCESS Vitamin D (Vitamin D3) 2,000 unit PO DAILY [facility] Last Admin: 08/04/18 09:12 Dose: 2,000 unit Allergies Allergy/AdvReac Type Severity Reaction Status Date / Time Sulfa (Sulfonamide Allergy Severe unk Verified 07/31/18 04:35 Antibiotics) Home Medications Medication Instructions Recorded Confirmed Type aspirin 325 mg PO DAILY 07/31/18 07/31/18 History cholecalciferol (vitamin D3) 2,000 unit PO DAILY 07/31/18 07/31/18 History [Vitamin D3] coenzyme Q10 [CoQ-10] See Label Instructions .ROUTE 07/31/18 07/31/18 History .COMPLEX Physical Exam Vital signs: Vital Signs 08/03/18 12:00 08/03/18 15:36 08/03/18 16:00 Temperature 97.1 F L 97.4 F L Pulse Rate 77 82 Respiratory Rate 18 18 Blood Pressure 92/56 L 127/70 Pulse Oximetry 93 L 95 94 L 08/03/18 20:47 08/04/18 00:00 08/04/18 04:00 Temperature 97.9 F 98 F 97.3 F L Pulse Rate 78 85 73 Respiratory Rate 18 18 18 Blood Pressure 121/56 L 140/64 109/64 Pulse Oximetry 93 L 93 L 08/04/18 08:00 Temperature 97.9 F Pulse Rate 106 H Respiratory Rate 18 Blood Pressure 126/73 Pulse Oximetry 92 L Intake & Output 08/03/18 08/04/18 08/04/18 18:59 06:59 18:59 Intake Total 650 / 650 110 / 110 Output Total 350 / 350 250 / 250 Balance 300 / 300 -140 / -140 Weight 101.2 kg Intake: IV 250 / 250 Heparin/D5W 25,000 U/250 mL 25, 250 / 250 000 unit In 250 ml @ Per Protocol IV.CONT TITRATE PRN Rx #:[id number] Oral 400 / 400 110 / 110 Output: Urine 350 / 350 250 / 250 Other: Date of Last Bowel Movement 08/03/18 08/03/18 # Bowel Movements 1 - Constitutional no acute distress - Routine Neck Exam Absent: JVD - Routine Respiratory Exam Comments: Scattered rhonchi. - Routine Cardiovascular Exam Present: RRR, S1, S2. Absent: murmur, gallop - Routine Abdominal Exam Present: soft, normoactive bowel sounds. Absent: tenderness, organomegaly - Routine Extremities Exam Absent: cyanosis, clubbing Comments: 2+ pretibial edema. Chronic venous stasis changes. - Urinary Catheter Management Indwelling Urethral Catheter Cath placed during this visit: yes Urethral indwelling: Yes Reason for continuing: Not indwelling catheter Insertion date: 07/31/18 Insertion time: 01:07 Results 08/03/18 05:07 08/03/18 05:07 Coagulation 08/02/18 08/02/18 08/02/18 Range/Units 12:02 13:24 19:07 APTT Greater than 277.5 H* 41.8 H D 43.2 H (23.4-31.7) sec 08/03/18 08/04/18 Range/Units 05:07 05:35 APTT 44.1 H 36.5 H (23.4-31.7) sec CBC 08/03/18 Range/Units 05:07 WBC 7.3 (4.0-11.0) th/mm3 RBC 4.64 (4.00-5.30) mil/mm3 Hgb 15.1 (11.6-15.3) gm/dL Hct 46.4 H (35.0-46.0) % Plt Count 147 L (150-450) th/mm3 Neut # (Auto) 5.2 (1.8-7.7) th/mm3 Lymph # (Auto) 1.2 (1.0-4.8) th/mm3 [place] # (Auto) 0.6 (0.0-0.9) th/mm3 Eos # (Auto) 0.2 (0.0-0.4) th/mm3 Baso # (Auto) 0.0 (0.0-0.2) th/mm3 Comprehensive Metabolic Panel 08/03/18 Range/Units 05:07 Sodium 139 (136-145) meq/L Potassium 3.8 (3.5-5.1) meq/L Chloride 96 L (98-107) meq/L Carbon Dioxide 35.1 H (21.0-32.0) meq/L BUN 28 H (7-18) mg/dL Creatinine 1.00 (0.50-1.00) mg/dL Calcium 8.2 L (8.5-10.1) mg/dL Intake and Output 08/03/18 08/04/18 08/04/18 22:59 06:59 14:59 Intake Total 650 / 650 110 / 110 Output Total 350 / 350 250 / 250 Balance 300 / 300 -140 / -140 Intake: IV 250 / 250 Heparin/D5W 25,000 U/250 mL 25, 250 / 250 000 unit In 250 ml @ Per Protocol IV.CONT TITRATE PRN Rx #:[id number] Oral 400 / 400 110 / 110 Output: Urine 350 / 350 250 / 250 Other: Date of Last Bowel Movement 08/03/18 # Bowel Movements 1 Weight 101.2 kg Assessment and Plan - Assessment (1) CHF (congestive heart failure) Code(s): I50.9 - Heart failure, unspecified Status: Acute Plan: Probably still with pulmonary edema. Also pedal edema, which is likely also due to chronic deep venous insufficiency, persists. Echo reviewed, agree EF < 20%. REC continue beta serg, KEILY-I, additional diuresis, and in light of her high risk of sudden , recommend Life Vest external defibrillator, to which she is agreeable, as well as ICD implant if EF not > 35% in 90 days. (2) Ischemic cardiomyopathy Code(s): I25.5 - Ischemic cardiomyopathy Status: Chronic Plan: Echo reviewed, agree EF < 20%. Mitral regurgitation seems only mild. Apical thrombus present as well. Continue beta serg, KEILY-I, repeat echo in 90 days. (3) Left ventricular apical thrombus Code(s): I51.3 - Intracardiac thrombosis, not elsewhere classified Status: Chronic Plan: Clear evidence for left ventricular thrombus at apex of LV. Recommend anticoagulation therapy. Recommend stop heparin, start Eliquis 5 mg bid. (4) Coronary artery disease Code(s): I25.10 - Atherosclerotic heart disease of [place] coronary artery without angina pectoris Status: Chronic Plan: Stable. No recent angina. Consider nuclear stress testing as outpatient. Continue aspirin, beta serg. - Plan Code Status: full code Discussed Condition With: patient, at length (1) CHF (congestive heart failure) Qualifiers: Heart failure type: systolic Heart failure chronicity: acute on chronic Qualified Code(s): I50.23 - Acute on chronic systolic (congestive) heart failure (4) Coronary artery disease Qualifiers: Coronary Disease-Associated Artery/Lesion type: [place] artery [place] vs. transplanted heart: [place] heart Associated angina: without angina Qualified Code(s): I25.10 - Atherosclerotic heart disease of [place] coronary artery without angina pectoris
[2018-08-04] MEDS ORDERED: metOLazone 5 MG Tablet PO ONE (10:13)
--- NOTE | 2018-08-04 11:38 | P.PNONC ---
Subjective Interval history: Patient sitting in chair, in no acute distress. Nurses at the bedside, administering medications. The heparin drip has been discontinued and she is receiving her first dose of Eliquis. Patient denies any shortness of breath. Denies bleeding. She has some calf pain, which she is relating to sitting in the chairs. Objective Vital Signs/Intake & Output: Vital Signs 08/03/18 12:00 08/03/18 15:36 08/03/18 16:00 Temperature 97.1 F L 97.4 F L Pulse Rate 77 82 Respiratory Rate 18 18 Blood Pressure 92/56 L 127/70 Pulse Oximetry 93 L 95 94 L 08/03/18 20:47 08/04/18 00:00 08/04/18 04:00 Temperature 97.9 F 98 F 97.3 F L Pulse Rate 78 85 73 Respiratory Rate 18 18 18 Blood Pressure 121/56 L 140/64 109/64 Pulse Oximetry 93 L 93 L 08/04/18 08:00 Temperature 97.9 F Pulse Rate 106 H Respiratory Rate 18 Blood Pressure 126/73 Pulse Oximetry 92 L Intake & Output 08/03/18 08/04/18 08/04/18 18:59 06:59 18:59 Intake Total 650 / 650 110 / 110 Output Total 350 / 350 250 / 250 Balance 300 / 300 -140 / -140 Weight 101.2 kg Intake: IV 250 / 250 Heparin/D5W 25,000 U/250 mL 25, 250 / 250 000 unit In 250 ml @ Per Protocol IV.CONT TITRATE PRN Rx #:[id number] Oral 400 / 400 110 / 110 Output: Urine 350 / 350 250 / 250 Other: Date of Last Bowel Movement 08/03/18 08/03/18 08/02/18 # Bowel Movements 1 Result Diagrams: 08/03/18 05:07 08/03/18 05:07 Laboratory Results: Laboratory Results - last 24 hr 08/04/18 05:35 APTT 36.5 H Culture Results: Microbiology 08/02/18 09:30 Stool Occult Blood (MIKE) - Final Stool Hemoccult negative Medications: Active Medications Generic Name Dose Route Start Last Admin Trade Name Freq PRN Reason Stop Dose Admin Al Hydroxide/Mg Hydroxide 30 ml 07/31/18 02:29 08/02/18 11:52 Milk Of Magnesia Liq PO 30 ml Q12H PRN Administration Mild Constipation Apixaban 5 mg 08/04/18 10:15 08/04/18 11:16 Eliquis PO 5 mg BID ABDELRAHMAN Administration Aspirin 325 mg 08/02/18 09:00 08/04/18 09:12 Aspirin PO 325 mg DAILY ABDELRAHMAN Administration Furosemide 40 mg 08/03/18 09:00 08/04/18 09:12 Lasix PO 40 mg DAILY ABDELRAHMAN Administration Guaifenesin 600 mg 08/01/18 17:00 08/04/18 09:12 Mucinex Er PO 600 mg BID ABDELRAHMAN Administration Insulin Aspart 0 unit 08/01/18 17:00 08/04/18 09:11 Novolog Insulin Correctional Sugar Inj SQ Not Given ACHS [facility] Protocol Lisinopril 5 mg 08/01/18 14:00 08/04/18 09:13 Prinivil PO Not Given DAILY ABDELRAHMAN Magnesium Oxide 400 mg 08/02/18 21:00 08/04/18 09:12 Mag-Ox PO 400 mg BID ABDELRAHMAN Administration Potassium Chloride 20 meq 08/02/18 11:45 08/04/18 09:11 K-Dur PO 20 meq BID ABDELRAHMAN Administration Pravastatin Sodium 20 mg 08/02/18 21:00 08/03/18 20:36 Pravachol PO 20 mg HS ABDELRAHMAN Administration Senna/Docusate Sodium 1 tab 07/31/18 09:00 08/04/18 09:12 Sandy-Colace PO 1 tab BID ABDELRAHMAN Administration Sodium Chloride 2 ml 07/31/18 09:00 08/04/18 09:13 Ns Flush IV.FLUSH 2 ml BID ABDELRAHMAN Administration Vitamin D 2,000 unit 08/02/18 09:00 08/04/18 09:12 Vitamin D3 PO 2,000 unit DAILY ABDELRAHMAN Administration Objective Remarks: GENERAL: Obese elderly female patient, in no acute distress. SKIN: Warm and dry. HEAD: Normocephalic. EYES: No scleral icterus. No injection or drainage. NECK: Supple, trachea midline. CARDIOVASCULAR: Regular rate and rhythm without murmurs. RESPIRATORY: Breath sounds equal bilaterally. No accessory muscle use. O2 via nasal cannula 2 L. GASTROINTESTINAL: Abdomen large, soft, non-tender, nondistended. EXTREMITIES: No cyanosis. Chronic venous discoloration. BLE edema. MUSCULOSKELETAL: Decreased muscle tone. NEUROLOGICAL: No obvious focal deficit. Awake, alert, and oriented x3. PSYCHIATRIC: Appropriate mood and affect; insight and judgment normal. Assessment/Plan - Plan 1. Pulmonary embolism and bilateral DVT. Heparin drip has been discontinued and the patient has received her first dose of Eliquis. Continue Eliquis 5 mg p.o. twice daily. 2. Thrombocytopenia, improving platelet count 147,000 today. Vitamin B12 and folate are high. 3. Continue to monitor for bleeding.
--- NOTE | 2018-08-04 16:00 | P.PNIM ---
Subjective Interval history: follow up PE/DVT, ICM, generalized weakness Patient is sitting upright in bed. Discussed A1c findings with patient and attempted to provide diabetes education. Patient states "I am not a diabetic and have no family history of diabetes." Attempted education on lifestyle and dietary modifications, however, patient states she grew up growing everything fresh and knows well about eating healthy. She states it is "something" we have been giving her that resulted in her elevated A1c level. Discussed anticoagulation and medication compliance. Patient states she does not like taking medications and all the doctors want to do, is to get her to take more pills. Patient then is very apologetic and states she is happy that Dr Milan came to see her as he is familiar with her medical condition. Denies chest pain , dizziness, lightheadedness, palpitations. States she feels like wanting to cough up sputum but nothing is coming up. Physical Exam Vital signs: Last Vital Signs Temp 98.1 F 08/04/18 12:11 Pulse 101 H 08/04/18 12:11 Resp 18 08/04/18 12:11 BP 146/66 H 08/04/18 12:11 Pulse Ox 97 08/04/18 12:11 Intake & Output 08/02/18 08/03/18 08/04/18 08/05/18 06:59 06:59 06:59 06:59 Intake Total 250 / 250 450 / 450 760 / 760 250 / 250 Output Total 1425 / 1425 1350 / 1350 600 / 600 Balance -1175 / -1175 -900 / -900 160 / 160 250 / 250 Weight 106 kg 106 kg 101.2 kg Narrative: GENERAL: no acute distress, well developed, well nourished SKIN: warm and dry HEAD: normocephalic, atraumatic. PERRLA. EYES: No scleral icterus. No injection or drainage. NECK: Supple, trachea midline. No JVD or lymphadenopathy. CARDIOVASCULAR: Regular rate and rhythm without murmurs, gallops, or rubs. RESPIRATORY: Breath sounds equal bilaterally. No accessory muscle use. GASTROINTESTINAL: Abdomen soft, non-tender, nondistended. MUSCULOSKELETAL: BL chronic venous stasis changes, moves all extremities Urinary Catheter Management Indwelling Urethral Catheter: Cath placed during this visit: yes Urethral indwelling: Yes Reason for continuing: Not indwelling catheter Insertion date: 07/31/18 Insertion time: 01:07 Results Labs CBC & Chem 7: 08/03/18 05:07 08/03/18 05:07 Assessment and Plan (1) CHF (congestive heart failure): Code(s): I50.9 - Heart failure, unspecified Status: Acute (2) Ischemic cardiomyopathy: Code(s): I25.5 - Ischemic cardiomyopathy Status: Chronic (3) Left ventricular apical thrombus: Code(s): I51.3 - Intracardiac thrombosis, not elsewhere classified Status: Chronic (4) Coronary artery disease: Code(s): I25.10 - Atherosclerotic heart disease of [place] coronary artery without angina pectoris Status: Chronic Plan Patient is a 77 year old female who presented with shortness of breath , generalized weakness and a near syncopal episode while at home. #. Pulmonary embolism and bilateral DVT, apical thrombus - reviewed 08/04/18, stable -CT-PA 07/30/18 shows masslike area in the right hilum with associated scalloping of the right main pulmonary artery. Small, age indeterminate pulmonary emboli are seen of the right lower lobe pulmonary artery. Small moderate right and small left pleural effusions. There is mild thickening of the interlobular septa and mild groundglass opacities of both lungs suggesting a degree of pulmonary edema. Heart is enlarged. Coronary artery calcification. -BLE doppler U/S with extensive bilateral DVT -apical thrombus seen on echocardiogram -continue O2 as needed -stopped IV Heparin drip 08/04/18 & started on Eliquis 5 mg PO BID -Hematology consulted and following #. New diagnosis of systolic CHF/Ischemic Cardiomyopathy with Acute Exacerbation /Pulmonary Edema: acute - reviewed 08/04/18, unchanged -pulmonary edema seen on chest CT as above. -BNP 2018 -Echo 07/31 shows severely reduced systolic function with EF < 20%, probable left ventricular apical thrombus; severe akinesis, moderate MR -started on IV Lasix 40mg po bid, now switched to 40 mg PO daily 08/03/18 per Cardiology -continue low dose coreg and lisinopril with hold parameters -lipid panel with LDL 85 (goal < 70), start low dose statin -HgbA1c pending -troponins flat at 0.05, 0.04, 0.04 -monitor on telemetry -fluid restrictions -cardiology consulted, life vest has been ordered. CM consulted for assistance. #. Left ventricular apical thrombus - reviewed 08/04/18 -cardiology recommends anticoagulation with Eliquis 5 mg PO BID #. Renal Insufficiency: unknown if acute or chronic - reviewed 08/04/18 -continue to monitor -BMP currently stable with Creatinine around 1.0, possibly CKD stage III #. BLE Chronic Venous Changes and Edema - reviewed 08/04/18, stable -suspect component of lymphedema/venous stasis in combination with DVTs -consulted wound care, recommended shaving cream to bilateral lower legs and apply warm moist towel loosely for 5 minutes rinse and dry gently. Apply lotion , do not massage legs, and leave open to air. -continue diuresis as above #. Elevated Blood Glucose: acute - reviewed 08/04/18, improved -blood sugars < 150 -A1c 6.8, pt refusing insulin and blood sugar checks. States "I am not diabetic and no one in my family had it." Attempted to educate patient on lifestyle and dietary modification. She states she is familiar with eating healthy vegetables. Does not want to take PO meds at time of discharge. -monitor Accu-checks and cover with low dose SSI for now #. Hx of CVA: patient reports hx of stroke many years ago - reviewed 08/04/18 -continue aspirin -started on statin #. Hypokalemia/Hypomagnesemia: acute, likely secondary to diuresis - reviewed , improved -IV Mag sulfate x2G given 08/02/19, repeat Mg 1.9 -start on po kcl and mag ox -continue to monitor labs MDM: self Code: Full GI ppx: PO intake PE/DVT: On IV heparin drip Progress Note: Quality VTE Deep Vein Thrombosis/Pulmonary Embolism Present on Admission: No _ (1) Coronary artery disease Qualifiers: Associated angina: without angina Coronary Disease-Associated Artery/Lesion type: [place] artery [place] vs. transplanted heart: [place] heart Qualified Code (s): I25.10 - Atherosclerotic heart disease of [place] coronary artery without angina pectoris (2) CHF (congestive heart failure) Qualifiers: Heart failure chronicity: acute on chronic Heart failure type: systolic Qualified Code(s): I50.23 - Acute on chronic systolic (congestive) heart failure
[2018-08-04] MEDS: Carvedilol 6.25 MG Tablet PO SCH ×2 (19:53→20:00)
--- NOTE | 2018-08-05 00:55 | XR ---
EXAM DATE: 08/05/2018 12:35 AM EST AGE/SEX: 77 years / Female INDICATIONS: Short of breath, pleural effusion. CLINICAL DATA: This is the patient's subsequent encounter. Patient reports that signs and symptoms h ave been present for 1 week and indicates a pain score of 0/10. MEDICAL/SURGICAL HISTORY: Non-responsive. Non-responsive. COMPARISON: [facility] – [place], CHEST 1V SINGLE AP, 07/30/2018. . FINDINGS: Single AP view of the chest. Mild patchy opacity in the lower lung zones bilaterally. Mild blunting o f the costophrenic sulci. Mild cardiac silhouette enlargement. No evidence of pneumothorax. CONCLUSION: Mild patchy bilateral lower lung zone opacity likely representing atelectasis or mild consolidation. Mild blunting of the costophrenic sulci suggesting small pleural effusions. Electronically signed by: Alphonse England MD 08/05/2018 12:53 AM EST
[2018-08-05 05:39] LABS: Baso % (Auto) 0.7 % (0.0-2.0); Eos # (Auto) 0.2 th/mm3 (0.0-0.4); Eos % (Auto) 2.5 % (0.0-4.0); Hematocrit 42.9 % (35.0-46.0); Hemoglobin 14.5 gm/dL (11.6-15.3); Lymph # (Auto) 1.2 th/mm3 (1.0-4.8); Lymph % (Auto) 18.2 % (9.0-44.0); Mean Corpuscular HGB Conc 33.8 % (32.0-36.0); Mean Corpuscular Hemoglobin 33.5 pg (27.0-34.0); Mean Corpuscular Volume 99.3 fL (80.0-100.0); Mono # (Auto) 0.5 th/mm3 (0.0-0.9); Mono % (Auto) 7.2 % (0.0-8.0); Neut # (Auto) 4.8 th/mm3 (1.8-7.7); Neut % (Auto) 71.4 % (16.0-70.0); Platelet Count 159 th/mm3 (150-450); Red Blood Count 4.32 mil/mm3 (4.00-5.30); Red Cell Distribution Width 16.6 % (11.6-17.2); White Blood Count 6.8 th/mm3 (4.0-11.0)
[2018-08-05 05:59] LABS: Calcium 8.4 mg/dL (8.5-10.1); Potassium 4.1 meq/L (3.5-5.1)
--- NOTE | 2018-08-05 08:02 | P.PNCA ---
Subjective Interval history: Mild dyspnea late last night, none now. Denies angina, dizziness, palpitations. Medications and Allergies Active Medications: Active Medications Acetaminophen (Tylenol) 650 mg PO Q4H PRN PRN Reason: Temp > 100.4 Al Hydroxide/Mg Hydroxide (Milk Of Magnesia Liq) 30 ml PO Q12H PRN PRN Reason: Mild Constipation Last Admin: 08/02/18 11:52 Dose: 30 ml Albuterol (Duoneb Neb ([facility])) 1 ampul NEB Q6HR NEB [facility] Last Admin: 08/05/18 03:44 Dose: 1 ampul Apixaban (Eliquis) 5 mg PO BID [facility] Last Admin: 08/04/18 20:00 Dose: Not Given Aspirin (Aspirin) 325 mg PO DAILY [facility] Last Admin: 08/04/18 09:12 Dose: 325 mg Bisacodyl (Dulcolax Supp) 10 mg RECTAL DAILY PRN PRN Reason: SEVERE CONSITIPATION Carvedilol (Coreg) 6.25 mg PO BID [facility] Last Admin: 08/04/18 20:00 Dose: Not Given Dextrose (D50w Vial) 50 ml IV.PUSH UNSCH PRN PRN Reason: PER HYPOGLYCEMIA PROTOCOL Furosemide (Lasix) 40 mg PO DAILY [facility] Last Admin: 08/04/18 09:12 Dose: 40 mg Glucagon (Glucagon Inj) 1 mg OTHER PRN PRN PRN Reason: for Hypoglycemia Protocol Guaifenesin (Mucinex Er) 600 mg PO BID [facility] Last Admin: 08/04/18 20:01 Dose: Not Given Insulin Aspart (Novolog Insulin Correctional Sugar Inj) 0 unit SQ [facility]; Protocol Last Admin: 08/04/18 20:01 Dose: Not Given Lactulose (Lactulose Liq) 30 ml PO DAILY PRN PRN Reason: SEVERE CONSITIPATION Lisinopril (Prinivil) 5 mg PO DAILY [facility] Last Admin: 08/04/18 09:13 Dose: Not Given Magnesium Oxide (Mag-Ox) 400 mg PO BID [facility] Last Admin: 08/04/18 20:00 Dose: Not Given Ondansetron HCl (Zofran Inj) 4 mg IV.PUSH Q6H PRN PRN Reason: NAUSEA OR VOMITING Potassium Chloride (K-Dur) 20 meq PO BID [facility] Last Admin: 08/04/18 20:00 Dose: Not Given Pravastatin Sodium (Pravachol) 20 mg PO HS [facility] Last Admin: 08/04/18 20:02 Dose: Not Given Senna/Docusate Sodium (Sandy-Colace) 1 tab PO BID [facility] Last Admin: 08/04/18 20:02 Dose: Not Given Sennosides (Senokot) 17.2 mg PO Q12H PRN PRN Reason: Moderate Constipation Sodium Chloride (Ns Flush) 2 ml IV.FLUSH BID [facility] Last Admin: 08/04/18 20:01 Dose: Not Given Sodium Chloride (Ns Flush) 2 ml IV.FLUSH PRN PRN PRN Reason: FLUSH AFTER USING IV ACCESS Vitamin D (Vitamin D3) 2,000 unit PO DAILY [facility] Last Admin: 08/04/18 09:12 Dose: 2,000 unit Allergies Allergy/AdvReac Type Severity Reaction Status Date / Time Sulfa (Sulfonamide Allergy Severe unk Verified 07/31/18 04:35 Antibiotics) Home Medications Medication Instructions Recorded Confirmed Type aspirin 325 mg PO DAILY 07/31/18 07/31/18 History cholecalciferol (vitamin D3) 2,000 unit PO DAILY 07/31/18 07/31/18 History [Vitamin D3] coenzyme Q10 [CoQ-10] See Label Instructions .ROUTE 07/31/18 07/31/18 History .COMPLEX Physical Exam Vital signs: Vital Signs 08/04/18 08:00 08/04/18 12:11 08/04/18 16:15 Temperature 97.9 F 98.1 F 98.3 F Pulse Rate 106 H 101 H 98 H Respiratory Rate 18 18 18 Blood Pressure 126/73 146/66 H 120/74 Pulse Oximetry 92 L 97 93 L 08/04/18 20:00 08/04/18 20:09 08/04/18 21:05 Temperature 97.4 F L Pulse Rate 103 H 102 H Respiratory Rate 16 Blood Pressure 111/53 L Pulse Oximetry 94 L 97 08/05/18 00:03 08/05/18 00:30 08/05/18 00:50 Temperature 97.2 F L Pulse Rate 103 H 93 H 104 H Respiratory Rate 22 16 Blood Pressure 118/82 Pulse Oximetry 95 08/05/18 01:45 08/05/18 03:44 08/05/18 04:45 Temperature 97.2 F L Pulse Rate 78 73 Respiratory Rate 20 18 18 Blood Pressure 115/53 L Pulse Oximetry 93 L 08/05/18 05:12 Temperature Pulse Rate 75 Respiratory Rate Blood Pressure Pulse Oximetry Intake & Output 08/04/18 08/05/18 08/05/18 18:59 06:59 18:59 Intake Total 250 / 250 520 / 520 Output Total 1100 / 1100 Balance 250 / 250 -580 / -580 Weight 101.2 kg Intake: IV 250 / 250 Heparin/D5W 25,000 U/250 mL 25, 250 / 250 000 unit In 250 ml @ Per Protocol IV.CONT TITRATE PRN Rx #:[id number] Oral 520 / 520 Output: Urine 1100 / 1100 Other: Date of Last Bowel Movement 08/02/18 08/02/18 - Constitutional no acute distress - Routine Neck Exam Absent: JVD - Routine Respiratory Exam Comments: Few scattered rhonchi. - Routine Cardiovascular Exam Present: RRR, S1, S2. Absent: murmur, gallop - Routine Abdominal Exam Present: soft, normoactive bowel sounds. Absent: tenderness, organomegaly - Routine Extremities Exam Present: edema. Absent: cyanosis, clubbing Comments: 2+ pretibial edema. Chronic venous stasis changes. - Urinary Catheter Management Indwelling Urethral Catheter Cath placed during this visit: yes Urethral indwelling: Yes Reason for continuing: Acute urinary retention Insertion date: 07/31/18 Insertion time: 01:07 Results 08/05/18 05:12 08/05/18 05:12 Coagulation 08/04/18 08/04/18 Range/Units 05:35 14:52 APTT 36.5 H 24.2 D (23.4-31.7) sec CBC 08/05/18 Range/Units 05:12 WBC 6.8 (4.0-11.0) th/mm3 RBC 4.32 (4.00-5.30) mil/mm3 Hgb 14.5 (11.6-15.3) gm/dL Hct 42.9 (35.0-46.0) % Plt Count 159 (150-450) th/mm3 Neut # (Auto) 4.8 (1.8-7.7) th/mm3 Lymph # (Auto) 1.2 (1.0-4.8) th/mm3 [place] # (Auto) 0.5 (0.0-0.9) th/mm3 Eos # (Auto) 0.2 (0.0-0.4) th/mm3 Baso # (Auto) 0.0 (0.0-0.2) th/mm3 Comprehensive Metabolic Panel 08/05/18 Range/Units 05:12 Sodium 136 (136-145) meq/L Potassium 4.1 (3.5-5.1) meq/L Chloride 94 L (98-107) meq/L Carbon Dioxide 37.0 H (21.0-32.0) meq/L BUN 29 H (7-18) mg/dL Creatinine 1.01 H (0.50-1.00) mg/dL Calcium 8.4 L (8.5-10.1) mg/dL Intake and Output 08/04/18 08/05/18 08/05/18 22:59 06:59 14:59 Intake Total 520 / 520 Output Total 1100 / 1100 Balance -580 / -580 Intake: Oral 520 / 520 Output: Urine 1100 / 1100 Other: Date of Last Bowel Movement 08/02/18 Weight 101.2 kg - Imaging and Cardiology Imaging: Impressions Chest X-Ray 08/05/18 00:17 CONCLUSION: Mild patchy bilateral lower lung zone opacity likely representing atelectasis or mild consolidation. Mild blunting of the costophrenic sulci suggesting small pleural effusions. Assessment and Plan - Assessment (1) CHF (congestive heart failure) Code(s): I50.9 - Heart failure, unspecified Status: Acute Plan: Overall improved. Weight down about 10 lbs since admission. Pedal edema, which is likely also due to chronic deep venous insufficiency, persists. Echo reviewed, agree EF < 20%. REC continue beta serg, KEILY-I, furosemide. OK for discharge from my standpoint after patient fitted for Life Vest (order faxed to [facility] yesterday). Will f/u patient in the office in 2-3 weeks. (2) Ischemic cardiomyopathy Code(s): I25.5 - Ischemic cardiomyopathy Status: Chronic Plan: Echo reviewed, agree EF < 20%. Mitral regurgitation seems only mild. Apical thrombus present as well. Continue beta serg, KEILY-I, repeat echo in 90 days. Continue anticoagulation therapy. (3) Left ventricular apical thrombus Code(s): I51.3 - Intracardiac thrombosis, not elsewhere classified Status: Chronic Plan: Clear evidence for left ventricular thrombus at apex of LV. Recommend anticoagulation therapy. Continue Eliquis 5 mg bid. (4) Coronary artery disease Code(s): I25.10 - Atherosclerotic heart disease of [place] coronary artery without angina pectoris Status: Chronic Plan: Stable. No recent angina. Consider nuclear stress testing as outpatient. Continue aspirin, beta serg. - Plan Code Status: full code Discussed Condition With: patient (1) CHF (congestive heart failure) Qualifiers: Heart failure type: systolic Heart failure chronicity: acute on chronic Qualified Code(s): I50.23 - Acute on chronic systolic (congestive) heart failure (4) Coronary artery disease Qualifiers: Coronary Disease-Associated Artery/Lesion type: [place] artery [place] vs. transplanted heart: [place] heart Associated angina: without angina Qualified Code(s): I25.10 - Atherosclerotic heart disease of [place] coronary artery without angina pectoris
[2018-08-05] MEDS: Sodium Chloride 0.9% 2 ML Flush BID IV.FLUSH SCH ×2 (09:00→20:05)
[2018-08-05] MEDS: guaiFENesin 600 MG ER Tablet PO SCH ×2 (09:48→21:36)
[2018-08-05] MEDS: Carvedilol 6.25 MG Tablet PO SCH ×2 (09:48→21:37)
[2018-08-05] MEDS: Insulin NovoLOG Aspart Correctional Sugar Inj SQ SCH ×4 (09:49→20:05)
[2018-08-05] MEDS: Lisinopril 5 MG Tablet PO SCH (09:49)
[2018-08-05] MEDS: Furosemide 40 MG Tablet PO SCH (09:49)
[2018-08-05] MEDS: Senna/Docusate Sodium 8.6/50 MG Tablet PO SCH ×2 (09:49→21:36)
[2018-08-05] MEDS: Magnesium Oxide 400 MG Tablet PO SCH ×2 (09:49→21:37)
[2018-08-05] MEDS: Aspirin 325 MG Tablet PO SCH (09:49)
--- NOTE | 2018-08-05 14:24 | P.PNIM ---
Subjective Interval history: Follow up PE/DVT, ICM, generalized weakness Patient is resting in bed. Her life vest has been ordered according to CM. She would like to go to rehab at time of discharge. Patient denies chest pain, shortness of breath or palpitations. Blood glucose level < 150. Afebrile. No cough, fevers or chills. Physical Exam Vital signs: Last Vital Signs Temp 97.6 F 08/05/18 12:00 Pulse 75 08/05/18 12:00 Resp 16 08/05/18 12:00 BP 112/61 08/05/18 12:00 Pulse Ox 92 L 08/05/18 12:00 Intake & Output 08/03/18 08/04/18 08/05/18 08/06/18 06:59 06:59 06:59 06:59 Intake Total 450 / 450 760 / 760 770 / 770 Output Total 1350 / 1350 600 / 600 1100 / 1100 Balance -900 / -900 160 / 160 -330 / -330 Weight 106 kg 101.2 kg 101.2 kg Narrative: GENERAL: no acute distress, well developed, well nourished SKIN: warm and dry HEAD: normocephalic, atraumatic. PERRLA. EYES: No scleral icterus. No injection or drainage. NECK: Supple, trachea midline. No JVD or lymphadenopathy. CARDIOVASCULAR: Regular rate and rhythm without murmurs, gallops, or rubs. RESPIRATORY: Breath sounds equal bilaterally. No accessory muscle use. GASTROINTESTINAL: Abdomen soft, non-tender, nondistended. MUSCULOSKELETAL: BL chronic venous stasis changes, moves all extremities Urinary Catheter Management Indwelling Urethral Catheter: Cath placed during this visit: yes Urethral indwelling: Yes Reason for continuing: Hourly intake/output Insertion date: 07/31/18 Insertion time: 01:07 Results Labs CBC & Chem 7: 08/05/18 05:12 08/05/18 05:12 Imaging Imaging: Impressions Chest X-Ray 08/05/18 00:17 CONCLUSION: Mild patchy bilateral lower lung zone opacity likely representing atelectasis or mild consolidation. Mild blunting of the costophrenic sulci suggesting small pleural effusions. Assessment and Plan Plan Patient is a 77 year old female who presented with shortness of breath , generalized weakness and a near syncopal episode while at home. #. Pulmonary embolism and bilateral DVT, apical thrombus - reviewed 08/05/18, stable -CT-PA 07/30/18 shows masslike area in the right hilum with associated scalloping of the right main pulmonary artery. Small, age indeterminate pulmonary emboli are seen of the right lower lobe pulmonary artery. Small moderate right and small left pleural effusions. There is mild thickening of the interlobular septa and mild groundglass opacities of both lungs suggesting a degree of pulmonary edema. Heart is enlarged. Coronary artery calcification. -BLE doppler U/S with extensive bilateral DVT -apical thrombus seen on echocardiogram -continue O2 as needed -stopped IV Heparin drip 08/04/18 & started on Eliquis 5 mg PO BID -Hematology consulted and following #. New diagnosis of systolic CHF/Ischemic Cardiomyopathy with Acute Exacerbation /Pulmonary Edema: acute - reviewed 08/05/18, improved -pulmonary edema seen on chest CT as above. -BNP 2018 -Echo 07/31 shows severely reduced systolic function with EF < 20%, probable left ventricular apical thrombus; severe akinesis, moderate MR -started on IV Lasix 40mg po bid, now switched to 40 mg PO daily 08/03/18 per Cardiology -continue low dose coreg and lisinopril with hold parameters -lipid panel with LDL 85 (goal < 70), start low dose statin -troponins flat at 0.05, 0.04, 0.04 -monitor on telemetry -fluid restrictions -cardiology consulted, life vest has been ordered. CM consulted for assistance. -shah cath for strict I&O, voiding trial in am #. Left ventricular apical thrombus - reviewed 08/05/18 -cardiology recommends anticoagulation with Eliquis 5 mg PO BID #. Renal Insufficiency: unknown if acute or chronic - reviewed 08/04/18 -continue to monitor -BMP currently stable with Creatinine around 1.0, possibly CKD stage III #. BLE Chronic Venous Changes and Edema - reviewed 08/04/18, stable -suspect component of lymphedema/venous stasis in combination with DVTs -consulted wound care, recommended shaving cream to bilateral lower legs and apply warm moist towel loosely for 5 minutes rinse and dry gently. Apply lotion , do not massage legs, and leave open to air. -continue diuresis as above #. Elevated Blood Glucose: acute - reviewed 08/05/18, improved w/ blood sugars < 150 -blood sugars < 150 -A1c 6.8, pt refusing insulin and blood sugar checks. States "I am not diabetic and no one in my family had it." Attempted to educate patient on lifestyle and dietary modification. She states she is familiar with eating healthy vegetables. Does not want to take PO meds at time of discharge. -monitor Accu-checks and cover with low dose SSI for now #. Hx of CVA: patient reports hx of stroke many years ago - reviewed 08/05/18 -continue aspirin -started on statin #. Hypokalemia/Hypomagnesemia: acute, likely secondary to diuresis - reviewed , improved -IV Mag sulfate x2G given 08/02/19, repeat Mg 1.9 -start on po kcl and mag ox -continue to monitor labs MDM: self Code: Full GI ppx: PO intake PE/DVT: PO Eliquis Progress Note: Quality VTE Deep Vein Thrombosis/Pulmonary Embolism Present on Admission: No
[2018-08-06 06:14] LABS: Baso # (Auto) 0.1 th/mm3 (0.0-0.2); Eos # (Auto) 0.2 th/mm3 (0.0-0.4); Eos % (Auto) 3.3 % (0.0-4.0); Hemoglobin 14.7 gm/dL (11.6-15.3); Lymph # (Auto) 1.3 th/mm3 (1.0-4.8); Lymph % (Auto) 18.7 % (9.0-44.0); Mean Corpuscular HGB Conc 34.1 % (32.0-36.0); Mean Corpuscular Hemoglobin 33.3 pg (27.0-34.0); Mean Corpuscular Volume 97.7 fL (80.0-100.0); Mean Platelet Volume 8.9 fL (7.0-11.0); Mono # (Auto) 0.5 th/mm3 (0.0-0.9); Mono % (Auto) 7.4 % (0.0-8.0); Neut # (Auto) 4.7 th/mm3 (1.8-7.7); Neut % (Auto) 69.6 % (16.0-70.0); Platelet Count 177 th/mm3 (150-450); Red Cell Distribution Width 16.6 % (11.6-17.2); White Blood Count 6.7 th/mm3 (4.0-11.0)
[2018-08-06 06:33] LABS: Calcium 8.8 mg/dL (8.5-10.1); Carbon Dioxide 38.6 meq/L (21.0-32.0); Potassium 4.4 meq/L (3.5-5.1)
[2018-08-06] MEDS: Insulin NovoLOG Aspart Correctional Sugar Inj SQ SCH ×4 (08:07→20:33)
[2018-08-06] MEDS: Lisinopril 5 MG Tablet PO SCH (09:28)
[2018-08-06] MEDS: Senna/Docusate Sodium 8.6/50 MG Tablet PO SCH ×3 (09:28→20:33)
[2018-08-06] MEDS: Furosemide 40 MG Tablet PO SCH (09:28)
[2018-08-06] MEDS: Magnesium Oxide 400 MG Tablet PO SCH ×3 (09:28→20:33)
[2018-08-06] MEDS: Carvedilol 6.25 MG Tablet PO SCH ×3 (09:28→20:31)
[2018-08-06] MEDS: guaiFENesin 600 MG ER Tablet PO SCH ×3 (09:28→20:32)
[2018-08-06] MEDS: Aspirin 325 MG Tablet PO SCH (09:28)
[2018-08-06] MEDS: Sodium Chloride 0.9% 2 ML Flush BID IV.FLUSH SCH ×3 (11:09→20:33)
--- NOTE | 2018-08-06 13:24 | P.PNIM ---
Subjective Interval history: Follow up PE/DVT, ICM EF 20%, left ventricular apical thrombus , generalized weakness Patient is resting in bed. She appears sleepy. Denies chest pain, shortness of breath of palpitations. Life vest has been delivered and patient is currently wearing it. She has 2-3+ edema to bilateral lower extremities. Shah catheter has been discontinued this morning and she has voided since. Patient denies cough, fever or chills. She remains afebrile. Physical Exam Vital signs: Last Vital Signs Temp 97.2 F L 08/06/18 12:00 Pulse 82 08/06/18 12:00 Resp 14 08/06/18 12:00 BP 110/61 08/06/18 12:00 Pulse Ox 93 L 08/06/18 12:00 Intake & Output 08/04/18 08/05/18 08/06/18 08/07/18 06:59 06:59 06:59 06:59 Intake Total 760 / 760 770 / 770 Output Total 600 / 600 1100 / 1100 2450 / 2450 Balance 160 / 160 -330 / -330 -2450 / -2450 Weight 101.2 kg 101.2 kg 101.2 kg Narrative: GENERAL: no acute distress, well developed, well nourished SKIN: warm and dry HEAD: normocephalic, atraumatic. PERRLA. EYES: No scleral icterus. No injection or drainage. NECK: Supple, trachea midline. No JVD or lymphadenopathy. CARDIOVASCULAR: Regular rate and rhythm without murmurs, gallops, or rubs. Life vest in place. RESPIRATORY: Breath sounds equal bilaterally. No accessory muscle use. GASTROINTESTINAL: Abdomen soft, non-tender, nondistended. MUSCULOSKELETAL: BL chronic venous stasis changes, bilateral lower extremity 2-3 + edema, moves all extremities Urinary Catheter Management Indwelling Urethral Catheter: Cath placed during this visit: yes, but has since been removed by the nurse Urethral indwelling: No Insertion date: 07/31/18 Insertion time: 01:07 Removal date: 08/06/18 Removal time: 09:02 Results Labs CBC & Chem 7: 08/06/18 05:33 08/06/18 05:33 Assessment and Plan Plan Patient is a 77 year old female who presented with shortness of breath , generalized weakness and a near syncopal episode while at home. #. Pulmonary embolism and bilateral DVT, apical thrombus - reviewed 08/06/18, stable -CT-PA 07/30/18 shows masslike area in the right hilum with associated scalloping of the right main pulmonary artery. Small, age indeterminate pulmonary emboli are seen of the right lower lobe pulmonary artery. Small moderate right and small left pleural effusions. There is mild thickening of the interlobular septa and mild groundglass opacities of both lungs suggesting a degree of pulmonary edema. Heart is enlarged. Coronary artery calcification. -BLE doppler U/S with extensive bilateral DVT -apical thrombus seen on echocardiogram -continue O2 as needed -stopped IV Heparin drip 08/04/18 & started on Eliquis 5 mg PO BID -Hematology consulted and following #. New diagnosis of systolic CHF/Ischemic Cardiomyopathy with Acute Exacerbation /Pulmonary Edema: acute - reviewed 08/06/18, improved -pulmonary edema seen on chest CT as above. -BNP > 2019 on admission -Echo 07/31 shows severely reduced systolic function with EF < 20%, probable left ventricular apical thrombus; severe akinesis, moderate MR -started on IV Lasix 40mg po bid, now switched to 40 mg PO daily 08/03/18 per Cardiology -continue low dose coreg and lisinopril with hold parameters -lipid panel with LDL 85 (goal < 70), start low dose statin -troponins flat at 0.05, 0.04, 0.04 -monitor on telemetry -fluid restrictions -cardiology consulted, life vest has been ordered and delivered -shah cath for strict I&O and this was discontinued today. Patient able to void. #. Left ventricular apical thrombus - reviewed 08/06/18 -cardiology recommends anticoagulation with Eliquis 5 mg PO BID #. Renal Insufficiency: unknown if acute or chronic - reviewed 08/06/18 -continue to monitor -gradually increasing CO2 level, repeat labs in am -BMP currently stable with Creatinine around .97, possibly CKD stage III #. BLE Chronic Venous Changes and Edema - reviewed 08/06/18, unchanged -suspect component of lymphedema/venous stasis in combination with DVTs -consulted wound care, recommended shaving cream to bilateral lower legs and apply warm moist towel loosely for 5 minutes rinse and dry gently. Apply lotion , do not massage legs, and leave open to air. -continue diuresis as above #. Elevated Blood Glucose: acute - reviewed 08/05/18, improved w/ blood sugars < 150 -blood sugars < 150 -A1c 6.8, pt refusing insulin and blood sugar checks. States "I am not diabetic and no one in my family had it." Attempted to educate patient on lifestyle and dietary modification. She states she is familiar with eating healthy vegetables. Does not want to take PO meds at time of discharge. -monitor Accu-checks and cover with low dose SSI for now #. Hx of CVA: patient reports hx of stroke many years ago - reviewed 08/05/18 -continue aspirin -started on statin #. Hypokalemia/Hypomagnesemia: acute, likely secondary to diuresis - reviewed , resolved -IV Mag sulfate x2G given 08/02/19, repeat Mg 1.9 -start on po kcl and mag ox -continue to monitor labs MDM: self Code: Full GI ppx: PO intake PE/DVT: PO Eliquis Progress Note: Quality VTE Deep Vein Thrombosis/Pulmonary Embolism Present on Admission: No
[2018-08-06] MEDS ORDERED: acetaZOLAMIDE 250 MG TABLET PO ONE (16:00)
[2018-08-07 02:19] LABS: Baso # (Auto) 0.1 th/mm3 (0.0-0.2); Baso % (Auto) 0.9 % (0.0-2.0); Eos # (Auto) 0.2 th/mm3 (0.0-0.4); Eos % (Auto) 3.4 % (0.0-4.0); Hematocrit 42.1 % (35.0-46.0); Hemoglobin 14.2 gm/dL (11.6-15.3); Lymph # (Auto) 1.3 th/mm3 (1.0-4.8); Lymph % (Auto) 18.6 % (9.0-44.0); Mean Corpuscular HGB Conc 33.7 % (32.0-36.0); Mean Corpuscular Hemoglobin 33.3 pg (27.0-34.0); Mean Corpuscular Volume 98.6 fL (80.0-100.0); Mean Platelet Volume 9.1 fL (7.0-11.0); Mono # (Auto) 0.6 th/mm3 (0.0-0.9); Neut # (Auto) 4.9 th/mm3 (1.8-7.7); Neut % (Auto) 69.1 % (16.0-70.0); Platelet Count 196 th/mm3 (150-450); Red Blood Count 4.27 mil/mm3 (4.00-5.30); Red Cell Distribution Width 16.5 % (11.6-17.2)
[2018-08-07 02:36] LABS: Calcium 8.7 mg/dL (8.5-10.1); Carbon Dioxide 42.6 meq/L (21.0-32.0); Magnesium 1.8 mg/dL (1.5-2.5); Potassium 3.7 meq/L (3.5-5.1)
--- NOTE | 2018-08-07 08:15 | P.PNONC ---
Subjective Interval history: Patient was seen and examined this morning, vital signs, labs, medications and [facility] consultant notes were reviewed. Subjectively; the patient reports feeling much improved. She specifically reports improvement in her energy levels and breathing. She is very pleasant this morning and very appreciative of the medical care she is receiving. She tells me she is willing to accept medications going forward; when I had first met her last week she had told me she would not take medications or adhere to medical advice after being discharged. Due to her severe ischemic cardiomyopathy, she is now wearing a LifeVest. For therapeutic anticoagulation she is now on Eliquis 5 mg p.o. twice daily. Objective Vital Signs/Intake & Output: Vital Signs 08/06/18 12:00 08/06/18 15:32 08/06/18 16:00 Temperature 97.2 F L 97.2 F L Pulse Rate 82 74 77 Respiratory Rate 14 19 14 Blood Pressure 110/61 107/56 L Pulse Oximetry 93 L 94 L 08/06/18 19:59 08/06/18 20:00 08/06/18 20:52 Temperature 97.5 F L Pulse Rate 80 79 74 Respiratory Rate 19 16 Blood Pressure 117/73 Pulse Oximetry 96 96 08/07/18 00:00 08/07/18 00:01 08/07/18 01:02 Temperature 97.3 F L Pulse Rate 76 75 69 Respiratory Rate 19 Blood Pressure 117/56 L Pulse Oximetry 95 08/07/18 01:53 08/07/18 03:27 08/07/18 04:00 Temperature 97.6 F Pulse Rate 71 86 Respiratory Rate 20 18 18 Blood Pressure 115/56 L Pulse Oximetry 96 08/07/18 04:39 Temperature Pulse Rate 67 Respiratory Rate Blood Pressure Pulse Oximetry Intake & Output 08/06/18 08/07/18 08/07/18 18:59 06:59 18:59 Weight 102.7 kg Other: # Voids 3 # Incontinent Voids 5 Date of Last Bowel Movement 08/06/18 08/06/18 # Bowel Movements 1 Result Diagrams: 08/07/18 01:54 08/07/18 01:54 Laboratory Results: Laboratory Results - last 24 hr 08/07/18 08/07/18 01:54 01:54 WBC 7.0 RBC 4.27 Hgb 14.2 Hct 42.1 MCV 98.6 MCH 33.3 MCHC 33.7 RDW 16.5 Plt Count 196 MPV 9.1 Neut % (Auto) 69.1 Lymph % (Auto) 18.6 Bath % (Auto) 8.0 Eos % (Auto) 3.4 Baso % (Auto) 0.9 Neut # (Auto) 4.9 Lymph # (Auto) 1.3 Bath # (Auto) 0.6 Eos # (Auto) 0.2 Baso # (Auto) 0.1 WBC Differential . Differential Comment Auto diff final Sodium 134 L Potassium 3.7 Chloride 88 L Carbon Dioxide 42.6 H Anion Gap 3 L BUN 31 H Creatinine 0.99 Estimated GFR 54 L Random Glucose 108 H Calcium 8.7 Magnesium 1.8 Medications: Active Medications Generic Name Dose Route Start Last Admin Trade Name Freq PRN Reason Stop Dose Admin Al Hydroxide/Mg Hydroxide 30 ml 07/31/18 02:29 08/02/18 11:52 Milk Of Magnesia Liq PO 30 ml Q12H PRN Administration Mild Constipation Albuterol 1 ampul 08/05/18 00:30 08/07/18 03:27 Duoneb Neb ([facility]) NEB 1 ampul Q6HR NEB [facility] Administration Apixaban 5 mg 08/04/18 10:15 08/06/18 20:31 Eliquis PO 5 mg BID [facility] Administration Aspirin 325 mg 08/02/18 09:00 08/06/18 09:28 Aspirin PO 325 mg DAILY [facility] Administration Carvedilol 6.25 mg 08/04/18 10:14 08/06/18 20:31 Coreg PO Not Given BID [facility] Furosemide 40 mg 08/03/18 09:00 08/06/18 09:28 Lasix PO 40 mg DAILY [facility] Administration Guaifenesin 600 mg 08/01/18 17:00 08/06/18 20:32 Mucinex Er PO Not Given BID [facility] Insulin Aspart 0 unit 08/01/18 17:00 08/06/18 20:33 Novolog Insulin Correctional Sugar Inj SQ Not Given [facility] Protocol Lisinopril 5 mg 08/01/18 14:00 08/06/18 09:28 Prinivil PO 5 mg DAILY [facility] Administration Magnesium Oxide 400 mg 08/02/18 21:00 08/06/18 20:33 Mag-Ox PO Not Given BID [facility] Potassium Chloride 20 meq 08/02/18 11:45 08/06/18 20:31 K-Dur PO 20 meq BID [facility] Administration Pravastatin Sodium 20 mg 08/02/18 21:00 08/06/18 20:34 Pravachol PO Not Given HS [facility] Senna/Docusate Sodium 1 tab 07/31/18 09:00 08/06/18 20:33 Sandy-Colace PO Not Given BID [facility] Sodium Chloride 2 ml 07/31/18 09:00 08/06/18 20:33 Ns Flush IV.FLUSH Not Given BID [facility] Vitamin D 2,000 unit 08/02/18 09:00 08/06/18 09:28 Vitamin D3 PO 2,000 unit DAILY [facility] Administration Objective Remarks: General physical appearance: Ms. Ohara is an elderly lady, she is sitting up on a bedside chair, she is eating breakfast. She appears to be no acute distress and this morning is very pleasant. HEENT: Head atraumatic normocephalic, conjunctive a are non-pale sclerae anicteric. Oral exam poor dental hygiene, no pharyngeal erythema. Neck exam no palpable cervical supraclavicular adenopathy. Respiratory: Decreased bibasilar breath sounds, no rhonchi or wheezes. Cardiovascular: Regular rate and rhythm, S1-S2 with a systolic murmur, thready peripheral pulses. Lower extremities: Bilateral chronic appearing pretibial edema, chronic appearing skin changes. Abdominal exam: Obese belly, soft, no obvious tenderness, no palpable organ enlargement. [employer]: No obvious focal sensorimotor deficits other than stricture involving the left hand. She is able to move all 4 limbs spontaneously. Skin: Chronic venous stasis changes over the lower extremities. Assessment/Plan - Plan Ms. Ohara is a 77-year-old lady with multiple medical comorbid conditions including severe ischemic cardiomyopathy with an LVEF of less than 20%, she has a history of coronary artery disease, stroke and nonadherence to medical advice. She presented to [facility] a little over 1 week ago after she nearly collapsed while walking out to her mailbox. The patient on workup was found to have pulmonary emboli on CT angiogram of the thorax, lower extremity Doppler ultrasound studies indicate bilateral deep venous thromboses of the lower extremities. Additionally on echocardiogram she was found to have an LVEF of less than 20% associated with an apical left ventricular thrombus. Hematology service was asked to see her for further workup and management as well as assessment for possible underlying prothrombotic conditions. Based on her history of ischemic cardiomyopathy and her relative immobility, the deep venous thromboses and pulmonary emboli were thought to be provoked by her cardiomyopathy. A pro thrombotic workup has not been ordered. Due to her DVTs, pulmonary emboli and ischemic cardiomyopathy, this patient is committed to lifelong therapeutic anticoagulation. 1. Pulmonary embolism and bilateral DVT. Now on Eliquis 5 mg p.o. twice daily. Prior to starting Eliquis she was on therapeutic dose anticoagulation on heparin infusion for 1 week. 2. Thrombocytopenia: has completely resolved. 3. No evidence of bleeding.
[2018-08-07] MEDS: Carvedilol 6.25 MG Tablet PO SCH ×2 (08:45→20:18)
[2018-08-07] MEDS: Senna/Docusate Sodium 8.6/50 MG Tablet PO SCH ×2 (08:46→20:18)
[2018-08-07] MEDS: Aspirin 325 MG Tablet PO SCH (08:46)
[2018-08-07] MEDS: Insulin NovoLOG Aspart Correctional Sugar Inj SQ SCH ×4 (08:46→20:36)
[2018-08-07] MEDS: Lisinopril 5 MG Tablet PO SCH (08:46)
[2018-08-07] MEDS: guaiFENesin 600 MG ER Tablet PO SCH ×2 (08:46→20:18)
[2018-08-07] MEDS: Magnesium Oxide 400 MG Tablet PO SCH ×2 (08:46→20:18)
[2018-08-07] MEDS: Sodium Chloride 0.9% 2 ML Flush BID IV.FLUSH SCH ×2 (09:28→20:36)
--- NOTE | 2018-08-07 10:06 | P.PNIM ---
Subjective Interval history: Follow up PE/DVT, ICM EF 20% now with Life Vest, left ventricular apical thrombus, generalized weakness, elevated CO2 level Patient seen and examined while sitting up in a recliner chair. Patient states she feels much better today than she has yesterday. She is AAOx3. Denies chest pain, shortness of breath, or palpitations. She has 2-3+ bilateral edema to her feet. Life Vest in place. Patients CO2 level has been trending upward. She denies abdominal discomfort, nausea or vomiting. No bleeding. Physical Exam Vital signs: Last Vital Signs Temp 97.6 F 08/07/18 04:00 Pulse 67 08/07/18 04:39 Resp 18 08/07/18 04:00 BP 115/56 L 08/07/18 04:00 Pulse Ox 96 08/07/18 04:00 Intake & Output 08/05/18 08/06/18 08/07/18 08/08/18 06:59 06:59 06:59 06:59 Intake Total 770 / 770 Output Total 1100 / 1100 2450 / 2450 Balance -330 / -330 -2450 / -2450 Weight 101.2 kg 101.2 kg 102.7 kg Narrative: GENERAL: no acute distress, well developed, well nourished SKIN: warm and dry HEAD: normocephalic, atraumatic. PERRLA. EYES: No scleral icterus. No injection or drainage. NECK: Supple, trachea midline. No JVD or lymphadenopathy. CARDIOVASCULAR: Regular rate and rhythm without murmurs, gallops, or rubs. Life vest in place. RESPIRATORY: Breath sounds equal bilaterally. No accessory muscle use. GASTROINTESTINAL: Abdomen soft, non-tender, nondistended. MUSCULOSKELETAL: BL chronic venous stasis changes, bilateral lower extremity 2-3 + edema, moves all extremities Urinary Catheter Management Indwelling Urethral Catheter: Cath placed during this visit: yes, but has since been removed by the nurse Urethral indwelling: No Insertion date: 07/31/18 Insertion time: 01:07 Removal date: 08/06/18 Removal time: 09:02 Results Labs CBC & Chem 7: 08/07/18 01:54 08/07/18 01:54 Assessment and Plan Plan Patient is a 77 year old female who presented with shortness of breath , generalized weakness and a near syncopal episode while at home. #. Pulmonary embolism and bilateral DVT, apical thrombus - reviewed 08/07/18, stable -CT-PA 07/30/18 shows masslike area in the right hilum with associated scalloping of the right main pulmonary artery. Small, age indeterminate pulmonary emboli are seen of the right lower lobe pulmonary artery. Small moderate right and small left pleural effusions. There is mild thickening of the interlobular septa and mild groundglass opacities of both lungs suggesting a degree of pulmonary edema. Heart is enlarged. Coronary artery calcification. -BLE doppler U/S with extensive bilateral DVT -apical thrombus seen on echocardiogram -continue O2 as needed -stopped IV Heparin drip 08/04/18 & started on Eliquis 5 mg PO BID, no e/o bleeding -Hematology consulted and following #. New diagnosis of systolic CHF/Ischemic Cardiomyopathy with Acute Exacerbation /Pulmonary Edema: acute - reviewed 08/07/18, stable -pulmonary edema seen on chest CT as above. -BNP > 2019 on admission -Echo 07/31 shows severely reduced systolic function with EF < 20%, probable left ventricular apical thrombus; severe akinesis, moderate MR -started on IV Lasix 40mg po bid, now switched to 40 mg PO daily 08/03/18 per Cardiology. Hold Lasix today and tomorrow as patient with elevated CO2 level. -continue low dose coreg and lisinopril with hold parameters -lipid panel with LDL 85 (goal < 70), start low dose statin -troponins flat at 0.05, 0.04, 0.04 -monitor on telemetry -fluid restriction -cardiology consulted, life vest has been ordered and delivered. Patient is presently wearing it. -shah cath d/c'd 08/06/18. Patient with good urine output. #. Elevated CO2 level - evaluated 08/07/18 -CO2 level continuing to trend upward -hold Lasix and repeat labs in am #. Left ventricular apical thrombus - reviewed 08/06/18 -cardiology recommends anticoagulation with Eliquis 5 mg PO BID #. Renal Insufficiency: unknown if acute or chronic - reviewed 08/07/18 -continue to monitor -gradually increasing CO2 level, repeat labs in am, elevated BUN. Hold Lasix. -BMP currently stable with Creatinine around .99, possibly CKD stage III -repeat labs in am #. BLE Chronic Venous Changes and Edema - reviewed 08/07/18, unchanged -suspect component of lymphedema/venous stasis in combination with DVTs -consulted wound care, recommended shaving cream to bilateral lower legs and apply warm moist towel loosely for 5 minutes rinse and dry gently. Apply lotion , do not massage legs, and leave open to air. -continue diuresis as above #. Elevated Blood Glucose: acute - reviewed 08/07/18, improved w/ blood sugars < 150 -blood sugars < 150 -A1c 6.8, pt refusing insulin and blood sugar checks. States "I am not diabetic and no one in my family had it." Attempted to educate patient on lifestyle and dietary modification. She states she is familiar with eating healthy vegetables. Does not want to take PO meds at time of discharge. -monitor Accu-checks and cover with low dose SSI for now #. Hx of CVA: patient reports hx of stroke many years ago - reviewed 08/07/18 -continue aspirin -started on statin #. Hypokalemia/Hypomagnesemia: acute, likely secondary to diuresis - reviewed , resolved -IV Mag sulfate x2G given 08/02/19 -Mg 1.8 and K 3.7 08/07/18 -start on po kcl and mag ox -continue to monitor labs MDM: self Code: Full GI ppx: PO intake PE/DVT: PO Eliquis Progress Note: Quality VTE Deep Vein Thrombosis/Pulmonary Embolism Present on Admission: No
[2018-08-07] MEDS ORDERED: acetaZOLAMIDE 250 MG TABLET PO ONE (16:00)
[2018-08-08 05:36] LABS: Calcium 8.5 mg/dL (8.5-10.1); Carbon Dioxide 36.4 meq/L (21.0-32.0); Potassium 3.9 meq/L (3.5-5.1)
[2018-08-08] MEDS: Insulin NovoLOG Aspart Correctional Sugar Inj SQ SCH ×4 (08:11→20:14)
[2018-08-08] MEDS: Aspirin 325 MG Tablet PO SCH (08:11)
[2018-08-08] MEDS: Magnesium Oxide 400 MG Tablet PO SCH ×2 (08:12→20:06)
[2018-08-08] MEDS: Carvedilol 6.25 MG Tablet PO SCH ×2 (08:12→20:07)
[2018-08-08] MEDS: Lisinopril 5 MG Tablet PO SCH (08:12)
[2018-08-08] MEDS: Senna/Docusate Sodium 8.6/50 MG Tablet PO SCH ×2 (08:13→20:07)
[2018-08-08] MEDS: guaiFENesin 600 MG ER Tablet PO SCH ×2 (08:13→20:07)
[2018-08-08] MEDS: Sodium Chloride 0.9% 2 ML Flush BID IV.FLUSH SCH ×2 (08:30→20:07)
--- NOTE | 2018-08-08 12:54 | P.PNIM ---
Subjective Interval history: Follow up PE/DVT, ICM EF 20% now with Life Vest, left ventricular apical thrombus, generalized weakness, elevated CO2 level Patient is sitting up in a chair in her room. She is eating her lunch. Denies chest pain, shortness of breath, palpitations. Tolerating PO intake. Patient's CO2 level is slightly improved today. Physical Exam Vital signs: Last Vital Signs Temp 97.5 F L 08/08/18 08:00 Pulse 78 08/08/18 08:00 Resp 18 08/08/18 08:00 BP 91/55 L 08/08/18 08:00 Pulse Ox 91 L 08/08/18 08:00 Intake & Output 08/06/18 08/07/18 08/08/18 08/09/18 06:59 06:59 06:59 06:59 Output Total 2450 / 2450 Balance -2450 / -2450 Weight 101.2 kg 102.7 kg 103.1 kg Narrative: GENERAL: no acute distress, well developed, well nourished SKIN: warm and dry HEAD: normocephalic, atraumatic. PERRLA. EYES: No scleral icterus. No injection or drainage. NECK: Supple, trachea midline. No JVD or lymphadenopathy. CARDIOVASCULAR: Regular rate and rhythm without murmurs, gallops, or rubs. Life vest in place. RESPIRATORY: Breath sounds equal bilaterally. No accessory muscle use. GASTROINTESTINAL: Abdomen soft, non-tender, nondistended. MUSCULOSKELETAL: BL chronic venous stasis changes, bilateral lower extremity 2-3 + edema, moves all extremities Urinary Catheter Management Indwelling Urethral Catheter: Cath placed during this visit: yes, but has since been removed by the nurse Urethral indwelling: No Insertion date: 07/31/18 Insertion time: 01:07 Removal date: 08/06/18 Removal time: 09:02 Results Labs CBC & Chem 7: 08/07/18 01:54 08/08/18 04:25 Assessment and Plan Plan Patient is a 77 year old female who presented with shortness of breath , generalized weakness and a near syncopal episode while at home. #. Pulmonary embolism and bilateral DVT, apical thrombus - reviewed 08/08/18, stable -CT-PA 07/30/18 shows masslike area in the right hilum with associated scalloping of the right main pulmonary artery. Small, age indeterminate pulmonary emboli are seen of the right lower lobe pulmonary artery. Small moderate right and small left pleural effusions. There is mild thickening of the interlobular septa and mild groundglass opacities of both lungs suggesting a degree of pulmonary edema. Heart is enlarged. Coronary artery calcification. -BLE doppler U/S with extensive bilateral DVT -apical thrombus seen on echocardiogram -continue O2 as needed -stopped IV Heparin drip 08/04/18 & started on Eliquis 5 mg PO BID, no e/o bleeding -Hematology consulted and following #. New diagnosis of systolic CHF/Ischemic Cardiomyopathy with Acute Exacerbation /Pulmonary Edema: acute - reviewed 08/08/18, stable -pulmonary edema seen on chest CT as above. -BNP > 2019 on admission -Echo 07/31 shows severely reduced systolic function with EF < 20%, probable left ventricular apical thrombus; severe akinesis, moderate MR -started on IV Lasix 40mg po bid, now switched to 40 mg PO daily 08/03/18 per Cardiology. Hold Lasix today and tomorrow as patient with elevated CO2 level. -continue low dose coreg and lisinopril with hold parameters -lipid panel with LDL 85 (goal < 70), start low dose statin -troponins flat at 0.05, 0.04, 0.04 -monitor on telemetry -fluid restriction -cardiology consulted, life vest has been ordered and delivered. Patient is presently wearing it. -shah cath d/c'd 08/06/18. Patient with good urine output. #. Elevated CO2 level - evaluated 08/08/18, improving -CO2 level slightly decreased today -continue to hold Lasix and repeat labs in am #. Left ventricular apical thrombus - reviewed 08/06/18 -cardiology recommends anticoagulation with Eliquis 5 mg PO BID #. Renal Insufficiency: unknown if acute or chronic - reviewed 08/08/18 -continue to monitor -gradually increasing CO2 level, repeat labs in am, elevated BUN. Hold Lasix. -BMP currently stable with Creatinine of 1.04, possibly underlying CKD stage III -repeat labs in am #. BLE Chronic Venous Changes and Edema - reviewed 08/08/18, unchanged -suspect component of lymphedema/venous stasis in combination with DVTs -consulted wound care, recommended shaving cream to bilateral lower legs and apply warm moist towel loosely for 5 minutes rinse and dry gently. Apply lotion , do not massage legs, and leave open to air. -continue diuresis as above #. Elevated Blood Glucose: acute - reviewed 08/08/18, improved w/ blood sugars < 150 -blood sugars < 150 -A1c 6.8, pt refusing insulin and blood sugar checks. States "I am not diabetic and no one in my family had it." Attempted to educate patient on lifestyle and dietary modification. She states she is familiar with eating healthy vegetables. Does not want to take PO meds at time of discharge. -monitor Accu-checks and cover with low dose SSI for now #. Hx of CVA: patient reports hx of stroke many years ago - reviewed 08/07/18 -continue aspirin -started on statin #. Hypokalemia/Hypomagnesemia: acute, likely secondary to diuresis - reviewed , resolved -IV Mag sulfate x2G given 08/02/19 -Mg 1.8 and K 3.7 08/07/18 -start on po kcl and mag ox -continue to monitor labs MDM: self Code: Full GI ppx: PO intake PE/DVT: PO Eliquis Dispo: CM in process of obtaining auth. Will likely discharge to SNF tomorrow. Progress Note: Quality VTE Deep Vein Thrombosis/Pulmonary Embolism Present on Admission: No
[2018-08-09] MEDS: Carvedilol 6.25 MG Tablet PO SCH ×2 (09:12→21:34)
[2018-08-09] MEDS: Senna/Docusate Sodium 8.6/50 MG Tablet PO SCH ×2 (09:12→21:35)
[2018-08-09] MEDS: Aspirin 325 MG Tablet PO SCH (09:12)
[2018-08-09] MEDS: guaiFENesin 600 MG ER Tablet PO SCH ×2 (09:13→21:34)
[2018-08-09] MEDS: Magnesium Oxide 400 MG Tablet PO SCH ×2 (09:13→21:34)
[2018-08-09] MEDS: Lisinopril 5 MG Tablet PO SCH (09:13)
[2018-08-09] MEDS: Sodium Chloride 0.9% 2 ML Flush BID IV.FLUSH SCH ×2 (09:18→21:35)
[2018-08-09] MEDS: Insulin NovoLOG Aspart Correctional Sugar Inj SQ SCH ×4 (09:18→21:35)
[2018-08-09 10:59] LABS: Calcium 8.6 mg/dL (8.5-10.1); Carbon Dioxide 36.7 meq/L (21.0-32.0); Potassium 3.9 meq/L (3.5-5.1)
--- NOTE | 2018-08-09 14:44 | P.PNIM ---
Subjective Interval history: Follow up PE/DVT, ICM EF 20% now with Life Vest, left ventricular apical thrombus, generalized weakness, elevated CO2 level Patient is sitting upright in recliner chair in her room. Life vest remains in place. She denies chest pain, shortness of breath or palpitations. Awaiting rehab placement. Physical Exam Vital signs: Last Vital Signs Temp 97.4 F L 08/09/18 12:00 Pulse 75 08/09/18 12:00 Resp 20 08/09/18 12:00 BP 95/53 L 08/09/18 12:00 Pulse Ox 95 08/09/18 12:00 Intake & Output 08/07/18 08/08/18 08/09/18 08/10/18 06:59 06:59 06:59 06:59 Intake Total 1180 / 1180 Balance 1180 / 1180 Weight 102.7 kg 103.1 kg Narrative: GENERAL: no acute distress, well developed, well nourished SKIN: warm and dry HEAD: normocephalic, atraumatic. PERRLA. EYES: No scleral icterus. No injection or drainage. NECK: Supple, trachea midline. No JVD or lymphadenopathy. CARDIOVASCULAR: Regular rate and rhythm without murmurs, gallops, or rubs. Life vest in place. RESPIRATORY: Breath sounds equal bilaterally. No accessory muscle use. GASTROINTESTINAL: Abdomen soft, non-tender, nondistended. MUSCULOSKELETAL: BL chronic venous stasis changes, bilateral lower extremity 2-3 + edema, moves all extremities Urinary Catheter Management Indwelling Urethral Catheter: Cath placed during this visit: yes, but has since been removed by the nurse Urethral indwelling: No Insertion date: 07/31/18 Insertion time: 01:07 Removal date: 08/06/18 Removal time: 09:02 Results Labs CBC & Chem 7: 08/07/18 01:54 08/09/18 09:46 Assessment and Plan Plan Patient is a 77 year old female who presented with shortness of breath , generalized weakness and a near syncopal episode while at home. #. Pulmonary embolism and bilateral DVT, apical thrombus - reviewed 08/09/18, stable -CT-PA 07/30/18 shows masslike area in the right hilum with associated scalloping of the right main pulmonary artery. Small, age indeterminate pulmonary emboli are seen of the right lower lobe pulmonary artery. Small moderate right and small left pleural effusions. There is mild thickening of the interlobular septa and mild groundglass opacities of both lungs suggesting a degree of pulmonary edema. Heart is enlarged. Coronary artery calcification. -BLE doppler U/S with extensive bilateral DVT -apical thrombus seen on echocardiogram -continue O2 as needed -stopped IV Heparin drip 08/04/18 & started on Eliquis 5 mg PO BID, no e/o bleeding -Hematology consulted and following #. New diagnosis of systolic CHF/Ischemic Cardiomyopathy with Acute Exacerbation /Pulmonary Edema: acute - reviewed 08/09/18, stable -pulmonary edema seen on chest CT as above. -BNP > 2019 on admission -Echo 07/31 shows severely reduced systolic function with EF < 20%, probable left ventricular apical thrombus; severe akinesis, moderate MR -started on IV Lasix 40mg po bid, now switched to 40 mg PO daily 08/03/18 per Cardiology. Hold Lasix today and tomorrow as patient with elevated CO2 level. -continue low dose coreg and lisinopril with hold parameters -lipid panel with LDL 85 (goal < 70), start low dose statin -troponins flat at 0.05, 0.04, 0.04 -monitor on telemetry -fluid restriction -cardiology consulted, life vest has been ordered and delivered. Patient is presently wearing it. -shah cath d/c'd 08/06/18. Patient with good urine output. #. Elevated CO2 level - evaluated 08/09/18, improving -CO2 continuing to trend downward #. Left ventricular apical thrombus - reviewed 08/06/18 -cardiology recommends anticoagulation with Eliquis 5 mg PO BID #. Renal Insufficiency: unknown if acute or chronic - reviewed 08/09/18 -continue to monitor -BMP currently stable with Creatinine of 0.9, possibly underlying CKD stage III #. BLE Chronic Venous Changes and Edema - reviewed 08/09/18, unchanged -suspect component of lymphedema/venous stasis in combination with DVTs -consulted wound care, recommended shaving cream to bilateral lower legs and apply warm moist towel loosely for 5 minutes rinse and dry gently. Apply lotion , do not massage legs, and leave open to air. -continue diuresis as above #. Elevated Blood Glucose: acute - reviewed 08/08/18, controlled w/ blood sugars < 150 -blood sugars < 150 -A1c 6.8, pt refusing insulin and blood sugar checks. States "I am not diabetic and no one in my family had it." Attempted to educate patient on lifestyle and dietary modification. She states she is familiar with eating healthy vegetables. Does not want to take PO meds at time of discharge. -monitor Accu-checks and cover with low dose SSI for now #. Hx of CVA: patient reports hx of stroke many years ago - reviewed 08/07/18 -continue aspirin -started on statin #. Hypokalemia/Hypomagnesemia: acute, likely secondary to diuresis - reviewed , resolved -continue po kcl and mag ox -continue to monitor labs MDM: self Code: Full GI ppx: PO intake PE/DVT: PO Eliquis Dispo: CM in process of obtaining auth. Will likely discharge to SNF tomorrow. Progress Note: Quality VTE Deep Vein Thrombosis/Pulmonary Embolism Present on Admission: No
[2018-08-10 08:27] VITALS: RESP 20
[2018-08-10] MEDS: Magnesium Oxide 400 MG Tablet PO SCH (11:52)
[2018-08-10] MEDS: guaiFENesin 600 MG ER Tablet PO SCH (11:53)
[2018-08-10] MEDS: Lisinopril 5 MG Tablet PO SCH (11:53)
[2018-08-10] MEDS: Senna/Docusate Sodium 8.6/50 MG Tablet PO SCH (11:54)
[2018-08-10] MEDS: Aspirin 325 MG Tablet PO SCH (11:54)
[2018-08-10] MEDS: Carvedilol 6.25 MG Tablet PO SCH (11:55)
[2018-08-10] MEDS: Sodium Chloride 0.9% 2 ML Flush BID IV.FLUSH SCH (11:55)
[2018-08-10] MEDS: Insulin NovoLOG Aspart Correctional Sugar Inj SQ SCH ×2 (12:00→12:01)
[2018-08-10] MEDS: Furosemide 40 MG Tablet PO SCH (12:11)
--- NOTE | 2018-08-10 12:21 | P.DS ---
Date of admission: 07/31/18 00:22 Primary care physician: No Primary Care Physician Brief History from admission: patient is a 77 y/o female who presented to ER with shortness of breath. patient is not a good historian. per the ER she was brought to ER with a next- door neighbor for evaluation of generalized weakness and probable syncopal episode that happened earlier. Neighbors noticed that she had not been as active as much had been on the street is much recently. She apparently came out to get the mail and had a collapse yesterday. she says that she's had some sob over the past few days. she denies any pain, fever or cough. she says that she hasn't seen a doctor for eight or nine years. DS: Medications - Discharge Medications Prescriptions: apixaban [Eliquis] 5 mg PO BID #60 tab carvedilol [Coreg] 6.25 mg PO BID #60 tab furosemide 40 mg PO DAILY #60 tab guaifenesin [Mucinex] 600 mg PO BID #10 tab lisinopril 5 mg PO DAILY #30 tab magnesium oxide 400 mg PO BID #60 tab potassium chloride 20 meq PO BID #60 tab DS: Summary Hospital Course: 78-year-old female who presented to the emergency department on 07/31 due to shortness of breath. Patient underwent CT evaluation which revealed masslike area in the right hilum with associated scalloping of the right main pulmonary artery. Differential includes large, nonocclusive chronic pulmonary embolus and a true mass. Would tend to favor the former. Small, age indeterminate pulmonary emboli are seen of the right lower lobe pulmonary artery. Small moderate right and small left pleural effusions. There is mild thickening of the interlobular septa and mild groundglass opacities of both lungs suggesting a degree of pulmonary edema. Heart is enlarged. Coronary artery calcification. Patient was also found to have bilateral extensive DVTs with apical pulse also found on echocardiogram. She was started on IV heparin and hematology consulted for further evaluation and recommendations. Patient transitioned from IV heparin to Eliquis per hematology recommendations. She was also found to have new diagnosis of systolic CHF, cardiomyopathy with acute exacerbation and pulmonary edema. Her BNP was greater than 2000 and she was started on Lasix, Coreg, and lisinopril. Echocardiogram revealed an EF of less than 20% with severe akinesis and moderate mitral regurgitation. She was seen and evaluated by cardiology services who recommended diuresis as well as LifeVest with ongoing follow-up as outpatient. Patient was also diagnosed as a diabetic during her stay with a hemoglobin A1c of 6.8. She has refused any oral diabetic medications and her blood sugars have been monitored with Accu-Cheks and coverage provided with insulin. Patient is medically stable with no further acute concerns or complaints. She is seen and examined sitting up in recliner chair this morning. Reports she is feeling better this morning, has noticed decreased swelling in her legs. Denies any shortness of breath, cough, fevers, chills, nausea or vomiting. - Time Spent with Patient Total time spent providing and/or coordinating discharge services: Greater than 30 minutes - Quality: VTE Deep Vein Thrombosis/Pulmonary Embolism Present on Admission: No Exam Vital signs: Vital Signs 08/09/18 14:59 08/09/18 16:00 08/09/18 17:35 Temperature 97.4 F L Pulse Rate 73 Respiratory Rate 17 20 Blood Pressure 106/56 L Pulse Oximetry 97 97 08/09/18 19:30 08/09/18 20:00 08/09/18 23:40 Temperature 98.1 F 97.5 F L Pulse Rate 73 72 85 Respiratory Rate 18 19 Blood Pressure 96/59 L 95/54 L Pulse Oximetry 98 98 08/10/18 00:00 08/10/18 04:00 08/10/18 04:15 Temperature 97.2 F L Pulse Rate 81 88 72 Respiratory Rate 18 Blood Pressure 116/71 102/61 Pulse Oximetry 97 08/10/18 08:00 08/10/18 10:53 Temperature 97.4 F L Pulse Rate 70 Respiratory Rate 20 Blood Pressure 102/58 L Pulse Oximetry 98 98 Intake & Output 08/09/18 08/10/18 08/10/18 18:59 06:59 18:59 Intake Total 1060 / 1060 720 / 720 Balance 1060 / 1060 720 / 720 Weight 104.5 kg Intake: Oral 1060 / 1060 720 / 720 Other: # Voids 4 1 # Incontinent Voids 2 Date of Last Bowel Movement 08/09/18 08/09/18 # Bowel Movements 1 Narrative: GENERAL: Well-developed obese female in no acute distress. SKIN: Warm and dry. Lower leg venous stasis discoloration. HEAD: Atraumatic. Normocephalic. EYES: Pupils equal and round. No scleral icterus. No injection or drainage. ENT: No nasal bleeding or discharge. Mucous membranes pink and moist. NECK: Trachea midline. No JVD. CARDIOVASCULAR: Regular rate and rhythm. RESPIRATORY: No accessory muscle use. Clear to auscultation. Breath sounds equal bilaterally. Nasal cannula in place with 2 L. GASTROINTESTINAL: Abdomen soft, non-tender, nondistended. + Bowel sounds MUSCULOSKELETAL: Extremities without clubbing or cyanosis. Bilateral lower leg +1 edema, bilateral foot +2 edema. NEUROLOGICAL: Awake, alert, oriented x3. No obvious cranial nerve deficits. Motor grossly within normal limits. Normal speech. PSYCHIATRIC: Appropriate mood and affect; insight and judgment normal. Results Procedures completed during hospitalization: none Labs on day of discharge: Labs from last 24 hours 08/10/18 11:57 POC Glucose 99 - Impressions ITS Impressions Chest CTA 07/30/18 22:03 CONCLUSION: 1. Masslike area in the right hilum with associated scalloping of the right main pulmonary artery. Differential includes large, nonocclusive chronic pulmonary embolus and a true mass. Would tend to favor the former. 2. Small, age indeterminate pulmonary emboli are seen of the right lower lobe pulmonary artery. 3. Small moderate right and small left pleural effusions. There is mild thickening of the interlobular septa and mild groundglass opacities of both lungs suggesting a degree of pulmonary edema. Heart is enlarged. Coronary artery calcification. Venous Doppler Study 07/31/18 00:00 CONCLUSION: 1. Extensive bilateral deep venous thrombosis. Chest X-Ray 08/05/18 00:17 CONCLUSION: Mild patchy bilateral lower lung zone opacity likely representing atelectasis or mild consolidation. Mild blunting of the costophrenic sulci suggesting small pleural effusions. Discharge Plan - Discharge Disposition Patient Disposition: Discharge to SNF - Discharge Condition Condition: Stable - Discharge Order Discharge Orders: Discharge Order (Routine); Ordered 08/10/18 Ordered By: Wen Issa - Discharge Details Anticipated Discharge Date: 07/31/18 - Physicians Team Primary Care Provider: Primary Care Patricia,Rosalind Attending Provider: Caro Salmon Other Providers: Chelsea,Humanmeli ; Sorin Vera MD ; Gilmar Cesar MD ; Igor Ayon DO ; [facility] ; [facility]
[2018-08-10 13:05] VITALS: TEMP 97.7
[2018-08-10 16:25] VITALS: BP 99/51; PULSE 67; O2SAT 98
== END 2018-08-10 18:28 ==
LOC: NEPE 17:05 → NEDA 07-31 00:22 → N06 07-31 04:07
PROVIDERS: ADMIT Hospitalist; ATTEND Hospitalist
DX: N28.9 Disorder of kidney and ureter, unspecified; I27.20 Pulmonary hypertension, unspecified; I81 Portal vein thrombosis; I25.5 Ischemic cardiomyopathy; D69.6 Thrombocytopenia, unspecified; Z87.891 Personal history of nicotine dependence; I82.441 Acute embolism and thrombosis of right tibial vein; I47.2 Ventricular tachycardia; I50.23 Acute on chronic systolic (congestive) heart failure; I87.8 Other specified disorders of veins; Z79.82 Long term (current) use of aspirin; I82.413 Acute embolism and thrombosis of femoral vein, bilateral; I87.2 Venous insufficiency (chronic) (peripheral); E87.6 Hypokalemia; I25.2 Old myocardial infarction; E83.42 Hypomagnesemia; Z86.74 Personal history of sudden cardiac arrest; R45.1 Restlessness and agitation; T50.2X5A Adverse effect of carbonic-anhydrase inhibitors, benzothiadiazides and other diuretics, initial encounter; E11.65 Type 2 diabetes mellitus with hyperglycemia; Z68.38 Body mass index [BMI] 38.0-38.9, adult; I25.10 Atherosclerotic heart disease of native coronary artery without angina pectoris; Z86.73 Personal history of transient ischemic attack (TIA), and cerebral infarction without residual deficits; E66.01 Morbid (severe) obesity due to excess calories; R53.1 Weakness; I26.09 Other pulmonary embolism with acute cor pulmonale; Z91.81 History of falling; I34.0 Nonrheumatic mitral (valve) insufficiency; I51.3 Intracardiac thrombosis, not elsewhere classified